=== PATIENT | female | born 1980 | race Caucasian/White ===

== ENCOUNTER 2024-09-07 13:44 | Emergency (ER) | payer OTHER, SELFPAY ==
--- NOTE | ~2024-09-07 | CT_ITS ---
EXAMINATION: CT abd pelvis lumbar w con DATE: 09/07/2024 20:24 INDICATION: fall down stairs, LBP/tailbone pain/lower abd pain TECHNIQUE: Computed tomography (CT) of the abdomen and pelvis was performed with 100 mL Omnipaque-350 intravenous contrast. Automated exposure control and iterative reconstruction technique were employe d. The dose-length product was 866.81 mGy-cm. COMPARISON: None. FINDINGS: Lower thorax: Unremarkable Liver: Normal. Biliary/Gallbladder: Gallbladder is normal. No bile duct dilation. Pancreas: No mass or duct dilation. Spleen: Normal. Adrenals:No mass. Kidneys: No suspicious mass, obstructing stone, or hydronephrosis. GI tract: No small or large bowel dilation. Normal appendix. Mesentery/Peritoneum: No ascites, mass, or free air. Retroperitoneum: No mass. Pelvis: Mild presacral edema. Pelvic organs are within normal limits. 2.0 cm simple appearing right o varian cyst. IUD, in good position. Soft Tissues: Subcutaneous contusion overlying the tailbone. Bones (excluding spine): Comminuted fracture of the first coccygeal element. LUMBAR SPINE: 5 nonrib-bearing lumbar-type vertebral bodies. Pedicles intact. Normal vertebral body alignment. Vert ebral body heights preserved. Disc spaces maintained. Normal facets and posterior elements. IMPRESSION: No acute intra-abdominal process detected. No acute fracture or traumatic malalignment detected in the lumbar spine. Comminuted, nondisplaced fracture of the first coccygeal element, with presacral edema. Reviewed, dictated and finalized at location K. ES AIDE IMPRESSION: No acute intra-abdominal process detected. No acute fracture or traumatic malalignment detected in the lumbar spine. Comminuted, nondisplaced fracture of the first coccygeal element, with presacra l edema.
[2024-09-07 13:54] VITALS: BP 130/80; PULSE 97; RESP 20; TEMP 36.4; O2SAT 97
--- NOTE | 2024-09-07 16:34 | ED_ITS ---
HPI - Back Pain/Injury General Chief Complaint: Back Pain/Injury <MARJORIE Rain Last Filed: 09/07/24 16:50> Stated Complaint: pain from fall <MARJORIE Rain Last Filed: 09/07/24 16:50> Time Seen by Provider: 09/07/24 16:34 <MARJORIE Rain Last Filed: 09/07/24 16:50> Focused HPI: This is a 44-year-old female who presents to the ED for chief complaint of a fall with subsequent back pain and abdominal pain. Reports that she has pain to the tailbone where she directly landed while slipping down the stairs. Also reports that she has had abdominal pain intermittently for the past year and feels that this fall flared up her chronic abdominal pain. denies fevers, chills, numbness, weakness GENERAL: Well-appearing, well-nourished, and in no acute distress. HEAD: Normocephalic, atraumatic. CHEST: Clear to auscultation. No respiratory distress. ABD: Soft and nontender. HEART: Regular rate and rhythm. NEURO: Alert and oriented x3. Patient screened in triage and initial orders placed. Additional care and disposition to be based upon diagnostic testing and treatment. <MARJORIE Rain Last Filed: 09/07/24 16:50> Source: patient <MARJORIE Centeno Last Filed: 09/08/24 01:53> Mode of arrival: ambulatory <MARJORIE Centeno Last Filed: 09/08/24 01:53> Limitations: no limitations <MARJORIE Centeno Last Filed: 09/08/24 01:53> History of Present Illness HPI Narrative: Agree with above HPI. Denies any head injury. Denies LOC. Denies dizziness or lightheadedness prior to the fall. Patient was able to stand up and walk up the stairs after the fall. Has not taken anything for pain. <MARJORIE Centeno Last Filed: 09/08/24 01:53> Related Data Allergies/Adverse Reactions: Allergies Allergy/AdvReac Type Severity Reaction Status Date / Time Sulfa (Sulfonamide Allergy Hives Verified 09/07/24 19:50 Antibiotics) <MARJORIE Rain Last Filed: 09/07/24 16:50> Review of Systems 2 Review of Systems: All systems reviewed & are unremarkable except as noted in HPI. <MARJORIE Centeno Last Filed: 09/08/24 01:53> All systems reviewed & are unremarkable except as noted in HPI and below < Tanisha Johnson PA-C - Last Filed: 09/08/24 01:53> Exam 2 Narrative: GENERAL: Mildly uncomfortable appearing, well-nourished, non-toxic, in no acute distress. HEAD: Normocephalic, atraumatic. RESPIRATORY: Airway patent, respirations nonlabored. Clear to auscultation bilaterally, no rales, rhonchi, wheezing. CARDIOVASCULAR: Regular rate and rhythm without murmurs, rubs, or gallops. ABDOMINAL: Soft, nontender, nondistended. Normoactive BS. MUSCULOSKELETAL: Moves all extremities. No gross deformities. Diffuse tenderness throughout lumbosacral region with some swelling and ecchymosis present. No palpable bony deformities along spine. No appreciable step offs. Sensation intact. No tenderness throughout thoracic or cervical midline spine. SKIN: Warm, dry, normal color. NEURO: A&O X3. Speech clear. Cranial nerves II-XII grossly intact. No ataxic movements. PSYCHIATRIC: Appropriate mood and affect. Normal interaction. <Tanisha Johnson PA-C - Last Filed: 09/08/24 01:53> Course Vital Signs Vital signs: Vital Signs Temperature 97.5 F L 09/07/24 13:54 Pulse Rate 97 09/07/24 13:54 Respiratory Rate 20 09/07/24 13:54 Blood Pressure 130/80 09/07/24 13:54 Pulse Oximetry 97 09/07/24 13:54 Temperature 98.6 F 09/07/24 16:40 Pulse Rate 79 09/07/24 16:40 Respiratory Rate 18 09/07/24 16:40 Blood Pressure 107/65 09/07/24 16:40 Pulse Oximetry 97 09/07/24 16:40 <Sedrick Huitron PA-C - Last Filed: 09/07/24 16:50> Vital Signs Temperature 97.5 F L 09/07/24 13:54 Pulse Rate 97 09/07/24 13:54 Respiratory Rate 20 09/07/24 13:54 Blood Pressure 130/80 09/07/24 13:54 Pulse Oximetry 97 09/07/24 13:54 Temperature 98.6 F 09/07/24 16:40 Pulse Rate 79 09/07/24 16:40 Respiratory Rate 18 09/07/24 16:40 Blood Pressure 107/65 09/07/24 16:40 Pulse Oximetry 97 09/07/24 16:40 <MARJORIE Centeno Last Filed: 09/08/24 01:53> MDM - Back Pain/Injury MDM Narrative Medical decision making narrative: Patient presented to ED status post fall downstairs. Denies head injury or LOC. Complaining of pain to her lower back/tailbone region. Neurovascularly intact. No evidence of cord compression or cauda equina. Vital signs are stable. Patient sleeping in laying on her stomach upon my evaluation. Difficulty moving about the stretcher due to pain. Will obtain imaging to further evaluate. Laboratory studies are unremarkable. test negative. CT scan of abdomen/pelvis with lumbar spine was obtained and showing: C omminuted, nondisplaced fracture of the first coccygeal element, with presacral edema. This is consistent with exam and injury. There is no other lumbar spine fractures or lumbar spine abnormalities. No severe stenosis. No other intra- abdominal injuries. Patient was updated on imaging results. She is able to ambulate. Advised weight-bearing as tolerated. Offered crutches however patient politely declined. Will refer to orthopedics for further evaluation. Will prescribe pain medicine for home use. Patient feels comfortable going home. Discussed strict return precautions. She agrees with plan. Discharged in stable condition. <Tanisha Johnson PA-C - Last Filed: 09/08/24 01:53> Medical Records Attestation: I reviewed the patient's medical records. <Tanisha Johnson PA-C - Last Filed: 09/08/24 01:53> Lab Data Attestation: I reviewed the patient's lab results. <Tanisha Johnson PA-C - Last Filed: 09/08/24 01:53> Result diagrams: 09/07/24 17:11 09/07/24 17:11 <Sedrick Huitron PA-C - Last Filed: 09/07/24 16:50> Labs: Lab Results 09/07/24 09/07/24 Range/Units 17:11 17:20 WBC 11.8 H (4.5-10.0) K/mm3 RBC 4.62 (4.2-5.4) M/mm3 Hgb 14.7 (12.0-15.0) g/dL Hct 42.3 (37.0-47.0) % MCV 91.6 (80-100) fl MCH 31.8 (26-34) pg MCHC 34.8 (32-36) g/dl RDW 12.7 (11.5-14.5) % Plt Count 318 (150-375) k/mm3 MPV 10.4 (7.4-10.4) fl Immature Gran % (Auto) 0.2 (0-0.5) % Neut % (Auto) 53.0 (45.5-73.1) % Lymph % (Auto) 32.9 (18.3-44.2) % Newton % (Auto) 9.3 H (2.6-8.5) % Eos % (Auto) 3.8 (0-4.4) % Baso % (Auto) 0.8 (0.2-1.2) % Lymph # (Auto) 3.90 H (0.9-3.2) K/mm3 Newton # (Auto) 1.1 H (0.1-0.6) K/mm3 Eos # (Auto) 0.5 H (0-0.3) K/mm3 Baso # (Auto) 0.1 (0.0-0.1) K/mm3 Abs Immat Gran (auto) 0.02 (0.00-0.031) K/mm3 Absolute Neuts (auto) 6.3 (1.3-6.7) K/mm3 Absolute Nucleated RBC 0.000 (0.0-0.012) K/mm3 Nucleated RBC % 0.0 (0.0-0.2) % Sodium 138 (137-145) mmol/L Potassium 3.4 (3.4-5.0) mmol/L Chloride 108 H (98-107) mmol/L Carbon Dioxide 24 (22-30) mmol/L Anion Gap 6 (4-12) mmol/L BUN 11 (7-17) mg/dL Creatinine 0.90 (0.7-1.0) mg/dL Estim Creat Clear Calc 80 ml/min Estimated GFR > 60 (59 - ) Glucose 98 (65-110) mg/dL Calcium 8.9 (8.4-10.2) mg/dL Total Bilirubin 0.4 (0.2-1.3) mg/dL AST 49 H (14-36) U/L ALT 57 H (6-35) U/L Alkaline Phosphatase 62 (38-126) U/L Total Protein 7.0 (6.3-8.2) g/dL Albumin 4.4 (3.5-5.1) g/dL Lipase 51 (23-300) U/L Urine Color Yellow (Yellow) Urine Appearance Clear (Clear) Urine pH 7.5 (5.0-9.0) Ur Specific Cisco 1.013 (1.001-1.035) Urine Protein Negative (Negative) mg/dL Urine Glucose (UA) Negative (Negative) mg/dL Urine Ketones Negative (Negative) mg/dL Ur Blood (Man) Negative (Negative) Urine Nitrate Negative (Negative) Urine Bilirubin Negative (Negative) Urine Urobilinogen 0.2 (<2.0) mg/dL Leukocyte Esterase Rfl Negative (Negative) LEONCIO/UL POC Urine HCG, Qual Negative (Negative) <Sedrick Huitron PA-C - Last Filed: 09/07/24 16:50> Lab Results 09/07/24 09/07/24 Range/Units 17:11 17:20 WBC 11.8 H (4.5-10.0) K/mm3 RBC 4.62 (4.2-5.4) M/mm3 Hgb 14.7 (12.0-15.0) g/dL Hct 42.3 (37.0-47.0) % MCV 91.6 (80-100) fl MCH 31.8 (26-34) pg MCHC 34.8 (32-36) g/dl RDW 12.7 (11.5-14.5) % Plt Count 318 (150-375) k/mm3 MPV 10.4 (7.4-10.4) fl Immature Gran % (Auto) 0.2 (0-0.5) % Neut % (Auto) 53.0 (45.5-73.1) % Lymph % (Auto) 32.9 (18.3-44.2) % Newton % (Auto) 9.3 H (2.6-8.5) % Eos % (Auto) 3.8 (0-4.4) % Baso % (Auto) 0.8 (0.2-1.2) % Lymph # (Auto) 3.90 H (0.9-3.2) K/mm3 Newton # (Auto) 1.1 H (0.1-0.6) K/mm3 Eos # (Auto) 0.5 H (0-0.3) K/mm3 Baso # (Auto) 0.1 (0.0-0.1) K/mm3 Abs Immat Gran (auto) 0.02 (0.00-0.031) K/mm3 Absolute Neuts (auto) 6.3 (1.3-6.7) K/mm3 Absolute Nucleated RBC 0.000 (0.0-0.012) K/mm3 Nucleated RBC % 0.0 (0.0-0.2) % Sodium 138 (137-145) mmol/L Potassium 3.4 (3.4-5.0) mmol/L Chloride 108 H (98-107) mmol/L Carbon Dioxide 24 (22-30) mmol/L Anion Gap 6 (4-12) mmol/L BUN 11 (7-17) mg/dL Creatinine 0.90 (0.7-1.0) mg/dL Estim Creat Clear Calc 80 ml/min Estimated GFR > 60 (59 - ) Glucose 98 (65-110) mg/dL Calcium 8.9 (8.4-10.2) mg/dL Total Bilirubin 0.4 (0.2-1.3) mg/dL AST 49 H (14-36) U/L ALT 57 H (6-35) U/L Alkaline Phosphatase 62 (38-126) U/L Total Protein 7.0 (6.3-8.2) g/dL Albumin 4.4 (3.5-5.1) g/dL Lipase 51 (23-300) U/L Urine Color Yellow (Yellow) Urine Appearance Clear (Clear) Urine pH 7.5 (5.0-9.0) Ur Specific Cisco 1.013 (1.001-1.035) Urine Protein Negative (Negative) mg/dL Urine Glucose (UA) Negative (Negative) mg/dL Urine Ketones Negative (Negative) mg/dL Ur Blood (Man) Negative (Negative) Urine Nitrate Negative (Negative) Urine Bilirubin Negative (Negative) Urine Urobilinogen 0.2 (<2.0) mg/dL Leukocyte Esterase Rfl Negative (Negative) LEONCIO/UL POC Urine HCG, Qual Negative (Negative) <MARJORIE Centeno Last Filed: 09/08/24 01:53> Imaging Data Attestation: I personally reviewed and interpreted this imaging study as follows: < MARJORIE Centeno Last Filed: 09/08/24 01:53> Radiologist's impression: ITS Impressions Miscellaneous CT Procedure 09/07/24 20:27 IMPRESSION: No acute intra-abdominal process detected. No acute fracture or traumatic malalignment detected in the lumbar spine. Comminuted, nondisplaced fracture of the first coccygeal element, with presacral edema. <MARJORIE Centeno Last Filed: 09/08/24 01:53> Discharge Plan Discharge Clinical Impression: Closed fracture of coccyx, Fall down stairs <MARJORIE Rain Last Filed: 09/07/24 16:50> Patient Disposition: Home, Self-Care <MARJORIE Rain Last Filed: 09/07/24 16:50> Condition: Stable <MARJORIE Rain Last Filed: 09/07/24 16:50> Instructions: Antibiotic Form, Coccyx Injury (ED), Acute Low Back Pain (ED) <MARJORIE Rani Last Filed: 09/07/24 16:50> Additional Instructions: Continue Tylenol and Ibuprofen as needed for pain. You may use ice/heat, lidocaine patches to area of pain. Utilize Primghar as needed for more severe pain. Follow-up with your primary care doctor and Orthopedics for further evaluation. Return to the ED if you experience worsening or severe pain, recurrent injury, numbness in groin or legs, going to the bathroom without meaning to, unable to keep down food or drink, or any other symptoms of concern. <Sedrick Huitron PA-C - Last Filed: 09/07/24 16:50> Prescriptions: New hydrocodone-acetaminophen 5-325 mg tablet 1 tablet PO Q6H PRN (Reason: pain) Qty: 15 0RF lidocaine 5 % adhesive patch,medicated 1 patch topical DAILY Qty: 15 0RF Rx Instructions: leave on most painful area for up to 12 hrs <Sedrick Huitron PA-C - Last Filed: 09/07/24 16:50> Follow-up/Referrals: Ted,Sedrick Payton MD [Primary Care Provider] - Jerry Enrique MD [Physician] - (ORTHOPEDICS) <Sedrick Huitron PA-C - Last Filed: 09/07/24 16:50> Time of Disposition: 21:24 <Sedrick Huitron PA-C - Last Filed: 09/07/24 16:50> 21:24 <Tanisha Johnson PA-C - Last Filed: 09/08/24 01:53>
[2024-09-07 16:40] VITALS: BP 107/65; PULSE 79; RESP 18; TEMP 37; O2SAT 97
[2024-09-07 17:17] LABS: Basophils Absolute Auto 0.1 K/mm3 (0.0-0.1); Basophils Percent Auto 0.8 % (0.2-1.2); Eosinophils Absolute Auto 0.5 K/mm3 (0-0.3); Eosinophils Percent Auto 3.8 % (0-4.4); Hematocrit 42.3 % (37.0-47.0); Hemoglobin 14.7 g/dL (12.0-15.0); Immature Granulocyte Absolute 0.02 K/mm3 (0.00-0.031); Immature Granulocyte Percent A 0.2 % (0-0.5); Lymphocytes Percent Auto 32.9 % (18.3-44.2); Mean Corpuscular HGB Conc 34.8 g/dl (32-36); Mean Corpuscular Hemoglobin 31.8 pg (26-34); Mean Corpuscular Volume 91.6 fl (80-100); Mean Platelet Volume 10.4 fl (7.4-10.4); Monocytes Absolute Auto 1.1 K/mm3 (0.1-0.6); Monocytes Percent Auto 9.3 % (2.6-8.5); Neutrophils Absolute Auto 6.3 K/mm3 (1.3-6.7); Platelet Count Result 318 k/mm3 (150-375); Red Blood Count 4.62 M/mm3 (4.2-5.4); Red Cell Distribution Width 12.7 % (11.5-14.5); White Blood Count 11.8 K/mm3 (4.5-10.0)
[2024-09-07 17:18] LABS: Add Urine Microscopic? NO; Appearance Urine Clear (Clear); Bilirubin Urine Negative (Negative); Blood Urine Negative (Negative); Color Urine Yellow (Yellow); Glucose Urine UA Negative (Negative); Ketones Urine Negative (Negative); Leukocyte Esterase Ur Negative LEU/UL (Negative); Nitrate Urine Negative (Negative); Protein Urine Negative (Negative); Specific Grav Ur 1.013 (1.001-1.035); Urobilinogen Urine 0.2 mg/dL (<2.0); pH Urine 7.5 (5.0-9.0)
[2024-09-07 17:22] LABS: BEDSIDEPREGUCG Negative (Negative)
[2024-09-07 17:26] LABS: Alanine Aminotransferase 57 U/L (6-35); Albumin Level 4.4 g/dL (3.5-5.1); Alkaline Phosphatase 62 U/L (38-126); Anion Gap 6 mmol/L (4-12); Aspartate Amino Transferase 49 U/L (14-36); Bilirubin,Total 0.4 mg/dL (0.2-1.3); Blood Urea Nitrogen 11 mg/dL (7-17); Calcium 8.9 mg/dL (8.4-10.2); Carbon Dioxide 24 mmol/L (22-30); Chloride 108 mmol/L (98-107); Estimated CRCL calculation 80 ml/min; Estimated Glomerular Filt Rate > 60; Glucose 98 mg/dL (65-110); Lipase 51 U/L (23-300); Potassium 3.4 mmol/L (3.4-5.0); Sodium 138 mmol/L (137-145)
[2024-09-07] MEDS: MORPHINE SULFATE (*CRX) 4 MG/ML INJ IV PUSH (19:54)
[2024-09-07] MEDS: ONDANSETRON INJ 4 MG/2 ML VIAL IV PUSH (19:55)
[2024-09-07] MEDS: ACETAMINOPHEN 500 MG TABLET 1000 MG PO (19:55)
[2024-09-07] MEDS: HYDROcodone/acetaminophen (*CRX) 5-325 MG TABLET 1 TAB PO (21:34)
[2024-09-07] MEDS: KETOROLAC 30 MG/ML VIAL (*BKC) IV PUSH (21:34)
== END 2024-09-07 21:41 | disposition home or self-care (01) ==
PROVIDERS: Physician Assistant; Emergency Provider Physician Assistant; PCP Emergency Medicine
DX: S32.2XXA Fracture of coccyx, initial encounter for closed fracture (principal); W10.9XXA Fall (on) (from) unspecified stairs and steps, initial encounter
CPT/HCPCS: 36415; 72132; 74177; 80053; 81003; 81025; 83690; 85025; 96374; 96375; 99284; A9270; J1885; J2270; J2405; Q9967

== ENCOUNTER 2024-11-11 22:55 | Emergency (ER) | payer OTHER, SELFPAY ==
--- NOTE | ~2024-11-11 | CT_ITS ---
CLINICAL INDICATION: Abdominal pain COMPARISON: . TECHNIQUE: Multiple contiguous axial images of the abdomen and pelvis were performed following the ad ministration of with 100 mL Omnipaque-350 intravenous contrast The dose-length product (DLP) was 758.70 mGy-cm. Automated exposure control and iterative reconstruction technique were employed. FINDINGS/OBSERVATIONS: Visualized lower thorax: The bilateral lung bases are clear. The heart is of normal size, without pericardial effusion. Small hiatal hernia is present. Liver: The liver enhances homogeneously, and is not enlarged. Gallbladder and biliary system: The gallbladder is only minimally distended, and otherwise unremarkable. Pancreas: The pancreas enhances homogeneously without ductal dilatation. Spleen: The spleen enhances homogeneously and is not enlarged measuring 9 cm in longitudinal dimension. Kidneys: The bilateral kidneys enhance symmetrically without hydronephrosis or renal calculi. Adrenal glands: Unremarkable. Gastrointestinal tract: Fecal stasis within the colon Appendix: The air-filled appendix is of normal caliber (axial series, images 155 through 164). Vasculature: Unremarkable. Lymph nodes: No pathologically enlarged or morphologically suspicious lymph nodes within the retroperitoneum or at the root of the mesentery. Pelvic structures: The bladder is decompressed, and otherwise unremarkable. The uterus is retroverted and retroflexed. Intrauterine device in position. The bilateral ovaries are not visualized. Body wall and musculoskeletal: No significant degenerative disease within the lower thoracic or lumbosacral spine. IMPRESSION: Fecal stasis within the colon. No acute intra-abdominal pathology, as detailed above. Reviewed, dictated and finalized at location A. [facility]
--- OUTSIDE RECORDS SUMMARY | 2024-11-11 22:58 | XMS_ITS | Referral Summary ---
Author Organization [facility] Address [address] [place] [address] Care Team Providers Care Split Leather Mosser Name Role Phone Unavailable Primary Care Provider Unavailabl e Source Comments [facility],non-owned Affiliates and Associated Physician Practices is amultiple site organization consisting of ambulatory clinics and hospital sitesin [place], [place], [place] and [place]. This disclosure is being madepursuant to the Care Everywhere program and may not contain all information available regarding this patient. Last updated 18.[facility] Encounters Date Type Department Care Team Description 11/10/2024 3:00 PM BOX COVERER HAND Office Visit [facility] Orthopedics [address] [place] [address] Isac Feliciano MD from Last 3 Months Allergies Active Allergy Reactions Criticality Noted Date Comments Sulfa Drugs Urticaria,Itching,Rash High 04/30/2022 Medications * Be aware that medications may not be up to date on this document. Alwaysverify current medications with the patient. Medication Sig Dispensed Refills Start Date End Date Status atorvastatin (Lipitor) 20 MG tablet Take 1 (one) tablet by mouth once daily Active buPROPion XL 24hr (Wellbutrin-XL) 150 MG tablet Take 1 (one) tablet by mouth every morning 09/28/2024 Active amoxicillin-clavulan ate (Augmentin) 875-125 MG tablet 10/30/2024 Active diclofenac sodium EC (Voltaren) 50 MG tablet Take 1 (one) tablet by mouth 10/29/2024 Active fluticasone propionate (Flonase) 50 MCG/ACT nasal spray 08/26/2024 Active gabapentin (Neurontin) 400 MG capsule Take 1 (one) capsule by mouth 3 times daily 10/09/2024 Active levothyroxine (Synthroid) 50 MCG tablet Take 1 (one) tablet by mouth once daily 09/28/2024 Active lithium CR (Lithobid) 300 MG tablet Take 1 (one) tablet by mouth 2 times daily 10/13/2024 Active lurasidone (Latuda) 40 MG tablet 1 (one) tablet 10/13/2024 Active nystatin (Mycostatin) 277722 UNIT/ML suspension 08/19/2024 Active oxyBUTYnin (Ditropan) 5 MG tablet Take 1 (one) tablet by mouth 3 times daily Active pilocarpine HCl (Salagen) 5 MG tablet Take 1 (one) tablet by mouth 07/29/2024 Active prazosin (Minipress) 1 MG capsule TAKE 1 CAPSULE BY MOUTH DAILY AT BEDTIME NEEDED FOR NIGHTMARES 09/18/2024 Active propranolol ER 24hr (Inderal LA) 60 MG capsule Take 1 (one) capsule by mouth once daily Active topiramate (Topamax) 100 MG tablet Take 1 (one) tablet by mouth at bedtime 09/28/2024 Active venlafaxine XR 24hr (Effexor XR) 150 MG capsule 1 (one) capsule 09/28/2024 Active Social History Tobacco Use Types Packs/Day Years Used Date Smoking Tobacco: Never Smokeless Tobacco: Never Tobacco Cessation:Counseling Given: No Alcohol Use Standard Drinks/Week Comments Not Currently 0 (1 standard drink = 0.6 oz pur e alcohol) Sex and Gender Information Value Date Recorded Sex Assigned at Not on file Gender Identity Not on file Sexual Orientation Not on file Last Filed Vital Signs Vital Sign Reading Time Taken Comments Blood Pressure 118/79 11/10/2024 3:29 PM BOX COVERER HAND Pulse 84 11/10/2024 3:29 PM BOX COVERER HAND Temperature 36.9 C (98.5 F) 11/10/2024 3:29 PM BOX COVERER HAND Respiratory Rate 18 11/10/2024 3:29 PM BOX COVERER HAND Oxygen Saturation 100% 11/10/2024 3:29 PM BOX COVERER HAND Inhaled Oxygen Concentration - - Weight 81.6 kg (180 lb) 11/10/2024 3:29 PM BOX COVERER HAND Height 170.2 cm (5' 7 ) 11/10/2024 3:29 PM BOX COVERER HAND Body Mass Index 28.19 11/10/2024 3:29 PM BOX COVERER HAND Plan of Treatment Upcoming Encounters Date Type Department Care Team (Late st Contact Info) Description 12/25/2024 9:30 AM CDT Office Visit [facility]oped[facility] [address] [place] [address] Genoveva Ward, RAG BALER-SUPERVISOR [employer] [address] [place] [address]
--- OUTSIDE RECORDS SUMMARY | 2024-11-11 22:58 | XMS_ITS | Clinical Summary ---
Author Organization [facility] Address [address] [place] [address] Care Team Providers Care Insole Stiffener Name Role Phone Unavailable Primary Care Provider Unavailabl e Source Comments [facility],non-owned Affiliates and Associated Physician Practices is amultiple site organization consisting of ambulatory clinics and hospital sitesin [place], [place], [place] and [place]. This disclosure is being madepursuant to the Care Everywhere program and may not contain all information available regarding this patient. Last updated 18.[facility] Allergies Active Allergy Reactions Criticality Noted Date [...] 1 (one) tablet 10/13/2024 Active nystatin (Mycostatin) 730952 UNIT/ML suspension 08/19/2024 Active oxyBUTYnin (Ditropan) 5 [...] MG capsule 1 (one) capsule 09/28/2024 Active Encounters Date Type Department Care Team Description 11/10/2024 3:00 PM SOLVENT PROCESS EXTRACTOR OPERATOR Office Visit [facility] Orthoped[facility] [address] [place] [address] Isac Feliciano MD from Last 3 Months Social History Tobacco Use Types Packs/Day Years [...] Comments Blood Pressure 118/79 11/10/2024 3:29 PM SOLVENT PROCESS EXTRACTOR OPERATOR Pulse 84 11/10/2024 3:29 PM SOLVENT PROCESS EXTRACTOR OPERATOR Temperature 36.9 C (98.5 F) 11/10/2024 3:29 PM SOLVENT PROCESS EXTRACTOR OPERATOR Respiratory Rate 18 11/10/2024 3:29 PM SOLVENT PROCESS EXTRACTOR OPERATOR Oxygen Saturation 100% 11/10/2024 3:29 PM SOLVENT PROCESS EXTRACTOR OPERATOR Inhaled Oxygen Concentration - - Weight 81.6 kg (180 lb) 11/10/2024 3:29 PM SOLVENT PROCESS EXTRACTOR OPERATOR Height 170.2 cm (5' 7 ) 11/10/2024 3:29 PM SOLVENT PROCESS EXTRACTOR OPERATOR Body Mass Index 28.19 11/10/2024 3:29 PM SOLVENT PROCESS EXTRACTOR OPERATOR Plan of Treatment Upcoming Encounters Date Type Department Care Team (Late st Contact Info) Description 12/25/2024 9:30 AM CDT Office Visit [facility] [address] [place] [phone] Genoveva Ward, AIRCRAFT NAVIGATOR-SALESPERSON [employer] [address] [place] [address] Health Maintenance Due Date Last Done Comments MAMMOGRAM 1981 PAP SMEAR 1981 HIV SCREENING 1996 HEPATITIS C SCREENING 05/04/1999 DTAP/TDAP/TD VACCINES (1 - Tdap) 2000 HEPATITIS B VACCINE (1 of 3 - 19+ 3-dose series) 2000 COVID-19 VACCINE ( - 2023-2 5 season) 2024 INFLUENZA VACCINE (#1) 2024 DEPRESSION SCREENING 09/30/2024 SCREENING FOR DIABETES 11/10/2024 ZOSTER VACCINE (1 of 2) 2031 HIB VACCINE Aged Out No longer eligi ble based on patient's age to complete this topic HPV VACCINE Aged Out No longer eligi ble based on patient's age to complete this topic MENINGOCOCCAL (Group B) VACCINE Aged Out No longer eligible based on patient's age to complete this topic MENINGOCOCCAL VACCINE Aged Out No guillermina brittney eligible based on patient's age to complete this topic PNEUMOCOCCAL VACCINE Aged Out No long er eligible based on patient's age to complete this topic
--- OUTSIDE RECORDS SUMMARY | 2024-11-11 22:58 | XMS_ITS | Patient Health Record ---
Author Organization [facility] Address [address] [place] [address] Care Team Providers Care Lab Animal Technician Name Role Phone Jed Roy Primary Care Provider Michael Brown [phone] Allergies Allergen (clinical drug ingredient) Drug/Non Drug Allergy documented on EMR Reaction Allergy Type Onset Date Status Sulfacet-R Unknown Drug Allergy Active Results Component Value Reference Range Notes 12 Panel Urine Drug Screen Reviewed date:09/17/2024 05:09:31 PM Interpretation: Performing Lab: Notes/Report: THC POS ZAINAB neg MOP (OPI) neg AMP POS MET neg BAR neg BZO neg MDMA neg MTD neg OXY neg PCP neg BUP neg Reason For Referral No Information Medications Medication SIG (Take, Route, Frequency, Duration) Notes Start Date End Date Status Lurasidone HCl 20 MG 1 tablet in the evening with food Orally Once a day for 30 day(s) Lurasidone restarting 09/18/2024 Active Lurasidone HCl 40 MG 1 tablet in the evening with food Orally Once a day for 30 days Increasing from 20 mg to 40 mg. Thanks!! 10/13/2024 Active [place] Carbonate ER 300 MG 1 tablet at bedtime Orally Once a day for 30 days 10/13/2024 Active Pilocarpine HCl 5 MG 1 tablet Orally Three times a day for 30 days Lurasidone restarting 07/29/2024 Active Prazosin HCl 1 MG 1 capsule at bedtime Orally Once a day As needed for nightmares Lurasidone restarting 11/14/2023 Active Gabapentin 400 MG 1 capsule as needed for anxiety Orally Three times a day Lurasidone restarting Active Venlafaxine HCl ER 150 MG TAKE 1 CAPSULE BY MOUTH WITH FOOD DAILY for 30 Active buPROPion HCl ER (XL) 150 MG TAKE 1 TABLET BY MOUTH EVERY MORNING for 30 Active Thyroid 15 MG 1 tablet on an empty stomach Orally Once a day for 30 day(s) Active Atorvastatin Calcium 10 MG 1 tablet Orally Once a day for 30 day(s) 06/07/2021 Active Zovirax 5 % 1 application every 3 hours Externally Six times a day for 7 days 05/19/2021 Active oxyBUTYnin Chloride 5 MG 1 tablet Orally Twice a day Active Social History Tobacco Use: Social History Observation Description Date Details (start date - stop date) Current Smoker NA - NA Sex Assigned At : Social History Observation Description Sex Assigned At Female Dont use, Tobacco Use/Smoking Question Answer Notes Are you a current every day smoker Additional Findings: Tobacco User Heavy cigarett e smoker (20-39 cigs/day) Alcohol Screen (Audit-C) Question Answer Notes Did you have a drink containing alcohol in the p ast year? Yes Tobacco Control (Standard) Question Answer Notes Tobacco use: Current smoker Problems Problem Type SNOMED Code ICD Code Onset Dates Problem Status W/U Status Risk Notes Problem 89281213 Opioid dependence, uncomplicated (F11.20) Active confirmed Problem Tobacco user (878832242) Nicotine dependence, unspecified, uncomplicated (F17.200) Active confirmed Problem 75439626 Generalized anxiety disorder (F41.1) Active confirmed Problem Attention deficit hyperactivity disorder (182989562) ADHD (attention deficit hyperactivity disorder), combined type (F90.2) Active confirmed Problem 748462448 Bipolar 1 disorder (F31.9) Active confirmed Problem Opioid dependence in remission (805679414) Opioid dependence in remission (F11.21) Active confirmed Problem Nightmares (592766327) Nightmares (F51.5) Active confirmed Problem Nicotine dependence (36349847) Nicotine dependence (F17.200) Active confirmed Problem Binge eating disorder (631120436) Binge eating disorder (F50.81) Active confirmed Vital Signs Heart Rate 88 /min 09/17/2024 Temperature 98.1 degrees Fahrenheit 11/14/2023 Respiratory Rate 16 /min 09/17/2024 Blood pressure diastolic 68 mm Hg 09/17/2024 Oximetry 97 % 09/17/2024 Height 67 in 09/17/2024 Blood pressure systolic 108 mm Hg 09/17/2024 Weight 189.2 lbs 09/17/2024 BMI 29.63 kg/m2 09/17/2024 Encounters Encounter Location Date Provider Diagnosis [address] [address] 11/14/2023 Michael Brown Nicotine dependence, unspecified, uncomplicated F17.200 ; Bipolar 1 disorder F31.9 ; Generalized anxiety disorder F41.1 ; ADHD (attention deficit hyperactivity disorder), combined type F90.2 and Nightmares F51.[address] [address] 02/04/2024 Michael Brown ADHD (attention deficit hyperactivity disorder), combined type F90.2 ; Binge eating disorder F50.81 ; Generalized anxiety disorder F41.1 ; Bipolar 1 disorder F31.9 and Nightmares F51.[address] [address] 05/04/2024 Micheal Brown Bipolar 1 disorder F31.9 ; ADHD (attention deficit hyperactivity disorder), combined type F90.2 ; Generalized anxiety disorder F41.1 ; Binge eating disorder F50.81 and Nightmares F51.[address] [address] 07/29/2024 Michael Brown Generalized anxiety disorder F41.1 ; ADHD (attention deficit hyperactivity disorder), combined type F90.2 ; Nightmares F51.5 ; Binge eating disorder, moderate F50.811 and Medication side effects T88.7XXA [address] [address] 08/10/2024 Michael Brown Generalized anxiety disorder F41.1 ; ADHD (attention deficit hyperactivity disorder), combined type F90.2 ; Nightmares F51.5 ; Binge eating disorder, moderate F50.811 and Medication side effects T88.7XXA [address] [address] 09/17/2024 Michael Brown Generalized anxiety disorder F41.1 ; Bipolar 1 disorder F31.9 ; ADHD (attention deficit hyperactivity disorder), combined type F90.2 ; Binge eating disorder, moderate F50.811 ; Nightmares F51.5 and Medication side effects T88.7XXA [address] [address] 10/13/2024 Michael Brown Bipolar 1 disorder F31.9 ; Generalized anxiety disorder F41.1 ; ADHD (attention deficit hyperactivity disorder), combined type F90.2 ; Nightmares F51.5 and Binge eating disorder F50.[address] [address] 12/02/2023 Michael Brown [address] [address] 02/12/2024 Michael Brown [address] [address] 02/18/2024 Michael Brown ADHD (attention deficit hyperactivity disorder), combined type F90.2 Assessments Encounter Date Diagnosis (ICD Code) Assessment Notes Treatment Notes Treatment Clinical Notes Section Notes 09/17/2024 Generalized anxiety disorder (ICD-10 - F41.1) Client had requested to discontinue mood stabilizers at prior appt believing she was not bipolar due to dx being made when she was in throes of opioid addiction. She has not done well since discontinuation of Latuda with labile mood swings, increased depression. Client currently presents hypomanic to manic with pressured speech, irritability, circumstantial speech patterns, disrupted relationships. Discussed with client that given this, her depression is not MDD like she was hopeful for, but rather more aligned with a bipolarity. She breaks down crying stating, I don't want to be bipolar! Education provided and client calms. She is agreeable to restarting Latuda at 20 mg. If side effects, can consider Lamictal, Vraylar, Caplyta as other alternatives. Client has never trialed these. 09/17/2024 Bipolar 1 disorder (ICD-10 - F31.9) Client had requested to discontinue mood stabilizers at prior appt believing she was not bipolar due to dx being made when she was in throes of opioid addiction. She has not done well since discontinuation of Latuda with labile mood swings, increased depression. Client currently presents hypomanic to manic with pressured speech, irritability, circumstantial speech patterns, disrupted relationships. Discussed with client that given this, her depression is not MDD like she was hopeful for, but rather more aligned with a bipolarity. She breaks down crying stating, I don't want to be bipolar! Education provided and client calms. She is agreeable to restarting Latuda at 20 mg. If side effects, can consider Lamictal, Vraylar, Caplyta as other alternatives. Client has never trialed these. 10/13/2024 Bipolar 1 disorder (ICD-10 - F31.9) Client with continued symptoms that appear to be hypomania to triston in origin unless etiologic medical issue is presenting that medical community has been unable to distinigish at this present time. 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 Discussed increasing to 40 mg and adding Lithum 300 mg ER at bedtime and discontinuing Vyvanse. She is agreeable as she is trying to avoid a crisis stay due to starting a new job. This provider discussed that continue to believe bipolar 1 is correct diagnosis despite co-occuring substance use history and that this needs to be properly managed. Client is agreeable to trial of these medications. 08/10/2024 Generalized anxiety disorder (ICD-10 - F41.1) Concerning that despite recent addition of pilocarpine client has had no relief of xerostomia. She has cut ditropan (prescribed by another provider) in half dose and states this has not helped (directed by different provider). That it continues to be the same or worsen. Client has been on same medications with no issue for some time; xerostomia in last several months. Discussed with client suspect there could be underlying medical cause as usually if medication related pilocarpine is helpful. Will decrease bupropion to 150 mg XL to limit norepineprine burden (could be helpful) and as it is client's goal to wean off this medication anyhow. Doubtful though, that this will help much and did let client know this. Encouraged client to f/u with PCP and let them know pilocarpine currently ineffective. Recommended client seek further autoimmune w/u per PCP to r/o underlying disorder (ie Sjogren syndrome). Client verbalizes understanding. 08/10/2024 ADHD (attention deficit hyperactivity disorder), combined type (ICD-10 - F90.2) Concerning that despite recent addition of pilocarpine client has had no relief of xerostomia. She has cut ditropan (prescribed by another provider) in half dose and states this has not helped (directed by different provider). That it continues to be the same or worsen. Client has been on same medications with no issue for some time; xerostomia in last several months. Discussed with client suspect there could be underlying medical cause as usually if medication related pilocarpine is helpful. Will decrease bupropion to 150 mg XL to limit norepineprine burden (could be helpful) and as it is client's goal to wean off this medication anyhow. Doubtful though, that this will help much and did let client know this. Encouraged client to f/u with PCP and let them know pilocarpine currently ineffective. Recommended client seek further autoimmune w/u per PCP to r/o underlying disorder (ie Sjogren syndrome). Client verbalizes understanding. 07/29/2024 Generalized anxiety disorder (ICD-10 - F41.1) Client has take n herself off lurasidone a few months ago. She feels dx of bipolar one was a misdx and that she is MDD with ADHD and TANO. Client had substance use disorder when dx was made by prior provider. Discussed to continue to monitor mood. However, anxiety has been very very high since weaning off Latuda and did discuss with client that this could be part of the cause. States she had not thought of that. Will increase gabapentin and start pilocarpine for dry mouth. Will f/u with client in a few weeks to discuss other unresolved issues in further depth and check on status as ran out of time. Client had many, many things she wished to go over in 20 minutes. Client is agreeable to this. Vyvanse dose decreased to 40 mg as well to see if helpful for dry mouth also. 07/29/2024 ADHD (attention deficit hyperactivity disorder), combined type (ICD-10 - F90.2) Client has take n herself off lurasidone a few months ago. She feels dx of bipolar one was a misdx and that she is MDD with ADHD and TANO. Client had substance use disorder when dx was made by prior provider. Discussed to continue to monitor mood. However, anxiety has been very very high since weaning off Latuda and did discuss with client that this could be part of the cause. States she had not thought of that. Will increase gabapentin and start pilocarpine for dry mouth. Will f/u with client in a few weeks to discuss other unresolved issues in further depth and check on status as ran out of time. Client had many, many things she wished to go over in 20 minutes. Client is agreeable to this. Vyvanse dose decreased to 40 mg as well to see if helpful for dry mouth also. 05/04/2024 ADHD (attention deficit hyperactivity disorder), combined type (ICD-10 - F90.2) Client doing well overall, no changes to treatment plan currently. 05/04/2024 Bipolar 1 disorder (ICD-10 - F31.9) Client doing well overall, no changes to treatment plan currently. 02/18/2024 ADHD (attention deficit hyperactivity disorder), combined type (ICD-10 - F90.2) 02/04/2024 Binge eating disorder (ICD-10 - F50.81) All lab work WNL (corisol, hormones, CBC, CMP, thyroid) per client's report though client continues to gain weight. Feels she has been binging again since off Vyvanse, that methyphenidate has not been effective for her binge eating disorder. Has been eating to point of discomfort and guilt on daily basis and is rapidly gaining weight. Requests to be placed back on Vyvanse. Wants to also slowly taper down on Latuda, has self tapered down to 40 mg and been on this for last month with good results. Will write for 20 mg. See HPI for details about bipolar versus MDD history. 11/14/2023 Nicotine dependence, unspecified, uncomplicated (ICD-10 - F17.200) Client requests to be placed on another ADHD medication due to lack of being able to percure Vyvanse. Changed to methylphenidate. Naltrexone dcd due to client feeling no longer needed (no cravings anymore). Client having nightmares daily. Agreeable to trial of prazosin. No other changes needed. 02/04/2024 ADHD (attention deficit hyperactivity disorder), combined type (ICD-10 - F90.2) All lab work WN L (corisol, hormones, CBC, CMP, thyroid) per client's report though client continues to gain weight. Feels she has been binging again since off Vyvanse, that methyphenidate has not been effective for her binge eating disorder. Has been eating to point of discomfort and guilt on daily basis and is rapidly gaining weight. Requests to be placed back on Vyvanse. Wants to also slowly taper down on Latuda, has self tapered down to 40 mg and been on this for last month with good results. Will write for 20 mg. See HPI for details about bipolar versus MDD history. 11/14/2023 Bipolar 1 disorder (ICD-10 - F31.9) Client requests to be placed on another ADHD medication due to lack of being able to percure Vyvanse. Changed to methylphenidate. Naltrexone dcd due to client feeling no longer needed (no cravings anymore). Client having nightmares daily. Agreeable to trial of prazosin. No other changes needed. 11/14/2023 Generalized anxiety disorder (ICD-10 - F41.1) Client requests to be placed on another ADHD medication due to lack of being able to percure Vyvanse. Changed to methylphenidate. Naltrexone dcd due to client feeling no longer needed (no cravings anymore). Client having nightmares daily. Agreeable to trial of prazosin. No other changes needed. 02/04/2024 Generalized anxiety disorder (ICD-10 - F41.1) All lab work WN L (corisol, hormones, CBC, CMP, thyroid) per client's report though client continues to gain weight. Feels she has been binging again since off Vyvanse, that methyphenidate has not been effective for her binge eating disorder. Has been eating to point of discomfort and guilt on daily basis and is rapidly gaining weight. Requests to be placed back on Vyvanse. Wants to also slowly taper down on Latuda, has self tapered down to 40 mg and been on this for last month with good results. Will write for 20 mg. See HPI for details about bipolar versus MDD history. 05/04/2024 Generalized anxiety disorder (ICD-10 - F41.1) Client doing well overall, no changes to treatment plan currently. 07/29/2024 Nightmares (ICD-10 - F51.5) Client has take n herself off lurasidone a few months ago. She feels dx of bipolar one was a misdx and that she is MDD with ADHD and TANO. Client had substance use disorder when dx was made by prior provider. Discussed to continue to monitor mood. However, anxiety has been very very high since weaning off Latuda and did discuss with client that this could be part of the cause. States she had not thought of that. Will increase gabapentin and start pilocarpine for dry mouth. Will f/u with client in a few weeks to discuss other unresolved issues in further depth and check on status as ran out of time. Client had many, many things she wished to go over in 20 minutes. Client is agreeable to this. Vyvanse dose decreased to 40 mg as well to see if helpful for dry mouth also. 08/10/2024 Nightmares (ICD-10 - F51.5) Concerning that despite recent addition of pilocarpine client has had no relief of xerostomia. She has cut ditropan (prescribed by another provider) in half dose and states this has not helped (directed by different provider). That it continues to be the same or worsen. Client has been on same medications with no issue for some time; xerostomia in last several months. Discussed with client suspect there could be underlying medical cause as usually if medication related pilocarpine is helpful. Will decrease bupropion to 150 mg XL to limit norepineprine burden (could be helpful) and as it is client's goal to wean off this medication anyhow. Doubtful though, that this will help much and did let client know this. Encouraged client to f/u with PCP and let them know pilocarpine currently ineffective. Recommended client seek further autoimmune w/u per PCP to r/o underlying disorder (ie Sjogren syndrome). Client verbalizes understanding. 10/13/2024 Generalized anxiety disorder (ICD-10 - F41.1) Client with continued symptoms that appear to be hypomania to triston in origin unless etiologic medical issue is presenting that medical community has been unable to distinigish at this present time. 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 Discussed increasing to 40 mg and adding Lithum 300 mg ER at bedtime and discontinuing Vyvanse. She is agreeable as she is trying to avoid a crisis stay due to starting a new job. This provider discussed that continue to believe bipolar 1 is correct diagnosis despite co-occuring substance use history and that this needs to be properly managed. Client is agreeable to trial of these medications. 09/17/2024 ADHD (attention deficit hyperactivity disorder), combined type (ICD-10 - F90.2) Client had requested to discontinue mood stabilizers at prior appt believing she was not bipolar due to dx being made when she was in throes of opioid addiction. She has not done well since discontinuation of Latuda with labile mood swings, increased depression. Client currently presents hypomanic to manic with pressured speech, irritability, circumstantial speech patterns, disrupted relationships. Discussed with client that given this, her depression is not MDD like she was hopeful for, but rather more aligned with a bipolarity. She breaks down crying stating, I don't want to be bipolar! Education provided and client calms. She is agreeable to restarting Latuda at 20 mg. If side effects, can consider Lamictal, Vraylar, Caplyta as other alternatives. Client has never trialed these. 09/17/2024 Binge eating disorder, moderate (ICD-10 - F50.811) Client had requested to discontinue mood stabilizers at prior appt believing she was not bipolar due to dx being made when she was in throes of opioid addiction. She has not done well since discontinuation of Latuda with labile mood swings, increased depression. Client currently presents hypomanic to manic with pressured speech, irritability, circumstantial speech patterns, disrupted relationships. Discussed with client that given this, her depression is not MDD like she was hopeful for, but rather more aligned with a bipolarity. She breaks down crying stating, I don't want to be bipolar! Education provided and client calms. She is agreeable to restarting Latuda at 20 mg. If side effects, can consider Lamictal, Vraylar, Caplyta as other alternatives. Client has never trialed these. 10/13/2024 ADHD (attention deficit hyperactivity disorder), combined type (ICD-10 - F90.2) Client with continued symptoms that appear to be hypomania to triston in origin unless etiologic medical issue is presenting that medical community has been unable to distinigish at this present time. 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 Discussed increasing to 40 mg and adding Lithum 300 mg ER at bedtime and discontinuing Vyvanse. She is agreeable as she is trying to avoid a crisis stay due to starting a new job. This provider discussed that continue to believe bipolar 1 is correct diagnosis despite co-occuring substance use history and that this needs to be properly managed. Client is agreeable to trial of these medications. 05/04/2024 Binge eating disorder (ICD-10 - F50.81) Client doing well overall, no changes to treatment plan currently. 08/10/2024 Binge eating disorder, moderate (ICD-10 - F50.811) Concerning that despite recent addition of pilocarpine client has had no relief of xerostomia. She has cut ditropan (prescribed by another provider) in half dose and states this has not helped (directed by different provider). That it continues to be the same or worsen. Client has been on same medications with no issue for some time; xerostomia in last several months. Discussed with client suspect there could be underlying medical cause as usually if medication related pilocarpine is helpful. Will decrease bupropion to 150 mg XL to limit norepineprine burden (could be helpful) and as it is client's goal to wean off this medication anyhow. Doubtful though, that this will help much and did let client know this. Encouraged client to f/u with PCP and let them know pilocarpine currently ineffective. Recommended client seek further autoimmune w/u per PCP to r/o underlying disorder (ie Sjogren syndrome). Client verbalizes understanding. 07/29/2024 Binge eating disorder, moderate (ICD-10 - F50.811) Client has taken herself off lurasidone a few months ago. She feels dx of bipolar one was a misdx and that she is MDD with ADHD and TANO. Client had substance use disorder when dx was made by prior provider. Discussed to continue to monitor mood. However, anxiety has been very very high since weaning off Latuda and did discuss with client that this could be part of the cause. States she had not thought of that. Will increase gabapentin and start pilocarpine for dry mouth. Will f/u with client in a few weeks to discuss other unresolved issues in further depth and check on status as ran out of time. Client had many, many things she wished to go over in 20 minutes. Client is agreeable to this. Vyvanse dose decreased to 40 mg as well to see if helpful for dry mouth also. 11/14/2023 ADHD (attention deficit hyperactivity disorder), combined type (ICD-10 - F90.2) Client requests to be placed on another ADHD medication due to lack of being able to percure Vyvanse. Changed to methylphenidate. Naltrexone dcd due to client feeling no longer needed (no cravings anymore). Client having nightmares daily. Agreeable to trial of prazosin. No other changes needed. 02/04/2024 Bipolar 1 disorder (ICD-10 - F31.9) All lab work WNL (corisol, hormones, CBC, CMP, thyroid) per client's report though client continues to gain weight. Feels she has been binging again since off Vyvanse, that methyphenidate has not been effective for her binge eating disorder. Has been eating to point of discomfort and guilt on daily basis and is rapidly gaining weight. Requests to be placed back on Vyvanse. Wants to also slowly taper down on Latuda, has self tapered down to 40 mg and been on this for last month with good results. Will write for 20 mg. See HPI for details about bipolar versus MDD history. 02/04/2024 Nightmares (ICD-10 - F51.5) All lab work WN L (corisol, hormones, CBC, CMP, thyroid) per client's report though client continues to gain weight. Feels she has been binging again since off Vyvanse, that methyphenidate has not been effective for her binge eating disorder. Has been eating to point of discomfort and guilt on daily basis and is rapidly gaining weight. Requests to be placed back on Vyvanse. Wants to also slowly taper down on Latuda, has self tapered down to 40 mg and been on this for last month with good results. Will write for 20 mg. See HPI for details about bipolar versus MDD history. 11/14/2023 Nightmares (ICD-10 - F51.5) Client requests to be placed on another ADHD medication due to lack of being able to percure Vyvanse. Changed to methylphenidate. Naltrexone dcd due to client feeling no longer needed (no cravings anymore). Client having nightmares daily. Agreeable to trial of prazosin. No other changes needed. 05/04/2024 Nightmares (ICD-10 - F51.5) Client doing well overall, no changes to treatment plan currently. 10/13/2024 Nightmares (ICD-10 - F51.5) Client with continued symptoms that appear to be hypomania to triston in origin unless etiologic medical issue is presenting that medical community has been unable to distinigish at this present time. 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 Discussed increasing to 40 mg and adding Lithum 300 mg ER at bedtime and discontinuing Vyvanse. She is agreeable as she is trying to avoid a crisis stay due to starting a new job. This provider discussed that continue to believe bipolar 1 is correct diagnosis despite co-occuring substance use history and that this needs to be properly managed. Client is agreeable to trial of these medications. 08/10/2024 Medication side effects (ICD-10 - T88.7XXA) Concerning that despite recent addition of pilocarpine client has had no relief of xerostomia. She has cut ditropan (prescribed by another provider) in half dose and states this has not helped (directed by different provider). That it continues to be the same or worsen. Client has been on same medications with no issue for some time; xerostomia in last several months. Discussed with client suspect there could be underlying medical cause as usually if medication related pilocarpine is helpful. Will decrease bupropion to 150 mg XL to limit norepineprine burden (could be helpful) and as it is client's goal to wean off this medication anyhow. Doubtful though, that this will help much and did let client know this. Encouraged client to f/u with PCP and let them know pilocarpine currently ineffective. Recommended client seek further autoimmune w/u per PCP to r/o underlying disorder (ie Sjogren syndrome). Client verbalizes understanding. 07/29/2024 Medication side effects (ICD-10 - T88.7XXA) Client has taken herself off lurasidone a few months ago. She feels dx of bipolar one was a misdx and that she is MDD with ADHD and TANO. Client had substance use disorder when dx was made by prior provider. Discussed to continue to monitor mood. However, anxiety has been very very high since weaning off Latuda and did discuss with client that this could be part of the cause. States she had not thought of that. Will increase gabapentin and start pilocarpine for dry mouth. Will f/u with client in a few weeks to discuss other unresolved issues in further depth and check on status as ran out of time. Client had many, many things she wished to go over in 20 minutes. Client is agreeable to this. Vyvanse dose decreased to 40 mg as well to see if helpful for dry mouth also. 09/17/2024 Nightmares (ICD-10 - F51.5) Client had requested to discontinue mood stabilizers at prior appt believing she was not bipolar due to dx being made when she was in throes of opioid addiction. She has not done well since discontinuation of Latuda with labile mood swings, increased depression. Client currently presents hypomanic to manic with pressured speech, irritability, circumstantial speech patterns, disrupted relationships. Discussed with client that given this, her depression is not MDD like she was hopeful for, but rather more aligned with a bipolarity. She breaks down crying stating, I don't want to be bipolar! Education provided and client calms. She is agreeable to restarting Latuda at 20 mg. If side effects, can consider Lamictal, Vraylar, Caplyta as other alternatives. Client has never trialed these. 09/17/2024 Medication side effects (ICD-10 - T88.7XXA) Client had requested to discontinue mood stabilizers at prior appt believing she was not bipolar due to dx being made when she was in throes of opioid addiction. She has not done well since discontinuation of Latuda with labile mood swings, increased depression. Client currently presents hypomanic to manic with pressured speech, irritability, circumstantial speech patterns, disrupted relationships. Discussed with client that given this, her depression is not MDD like she was hopeful for, but rather more aligned with a bipolarity. She breaks down crying stating, I don't want to be bipolar! Education provided and client calms. She is agreeable to restarting Latuda at 20 mg. If side effects, can consider Lamictal, Vraylar, Caplyta as other alternatives. Client has never trialed these. 10/13/2024 Binge eating disorder (ICD-10 - F50.81) Client with continued symptoms that appear to be hypomania to triston in origin unless etiologic medical issue is presenting that medical community has been unable to distinigish at this present time. 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 Discussed increasing to 40 mg and adding Lithum 300 mg ER at bedtime and discontinuing Vyvanse. She is agreeable as she is trying to avoid a crisis stay due to starting a new job. This provider discussed that continue to believe bipolar 1 is correct diagnosis despite co-occuring substance use history and that this needs to be properly managed. Client is agreeable to trial of these medications. [place]2023 [place]. Discussed sleep hygiene and caffeine intake with encouragement to limit electronic devices an hour before bed and to limit caffeine after 3:00pm. Exercise benefits for mood and health discussed. Psychoeducation regarding psychiatric illness provided. Client was educated about risks and benefits of medication, alternatives to medication, off label uses of medication, suicidal ideation with SSRIs, self-administrati on and compliance with medication along with how to safely store medication. Verbal informed consent obtained. Client agrees to return sooner if symptoms worsen or if suicidal or homicidal ideations occur. Client has the phone number to the 24-hour crisis line at [facility]. Questions addressed. Client verbalized understanding of all information and is agreeable to treatment plan. Client requests to be placed on another ADHD medication due to lack of being able to percure Vyvanse. Changed to methylphenidate. Naltrexone dcd due to client feeling no longer needed (no cravings anymore). Client having nightmares daily. Agreeable to trial of prazosin. No other changes needed. 02/04/2024 [place]. Discussed sleep hygiene and caffeine intake with encouragement to limit electronic devices an hour before bed and to limit caffeine after 3:00pm. Exercise benefits for mood and health discussed. Psychoeducation regarding psychiatric illness provided. Client was educated about risks and benefits of medication, alternatives to medication, off label uses of medication, suicidal ideation with SSRIs, self-administrati on and compliance with medication along with how to safely store medication. Verbal informed consent obtained. Client agrees to return sooner if symptoms worsen or if suicidal or homicidal ideations occur. Client has the phone number to the 24-hour crisis line at [facility]. Questions addressed. Client verbalized understanding of all information and is agreeable to treatment plan. All lab work WNL (corisol, hormones, CBC, CMP, thyroid) per client's report though client continues to gain weight. Feels she has been binging again since off Vyvanse, that methyphenidate has not been effective for her binge eating disorder. Has been eating to point of discomfort and guilt on daily basis and is rapidly gaining weight. Requests to be placed back on Vyvanse. Wants to also slowly taper down on Latuda, has self tapered down to 40 mg and been on this for last month with good results. Will write for 20 mg. See HPI for details about bipolar versus MDD history. 05/04/2024 [place]. Discussed sleep hygiene and caffeine intake with encouragement to limit electronic devices an hour before bed and to limit caffeine after 3:00pm. Exercise benefits for mood and health discussed. Psychoeducation regarding psychiatric illness provided. Client was educated about risks and benefits of medication, alternatives to medication, off label uses of medication, suicidal ideation with SSRIs, self-administrati on and compliance with medication along with how to safely store medication. Verbal informed consent obtained. Client agrees to return sooner if symptoms worsen or if suicidal or homicidal ideations occur. Client has the phone number to the 24-hour crisis line at [facility]. Questions addressed. Client verbalized understanding of all information and is agreeable to treatment plan. Client doing well overall, no changes to treatment plan currently. 07/29/2024 [place]. Discussed sleep hygiene and caffeine intake with encouragement to limit electronic devices an hour before bed and to limit caffeine after 3:00pm. Exercise benefits for mood and health discussed. Psychoeducation regarding psychiatric illness provided. Client was educated about risks and benefits of medication, alternatives to medication, off label uses of medication, suicidal ideation with SSRIs, self-administrati on and compliance with medication along with how to safely store medication. Verbal informed consent obtained. Client agrees to return sooner if symptoms worsen or if suicidal or homicidal ideations occur. Client has the phone number to the 24-hour crisis line at [facility]. Questions addressed. Client verbalized understanding of all information and is agreeable to treatment plan. Client has taken herself off lurasidone a few months ago. She feels dx of bipolar one was a misdx and that she is MDD with ADHD and TANO. Client had substance use disorder when dx was made by prior provider. Discussed to continue to monitor mood. However, anxiety has been very very high since weaning off Latuda and did discuss with client that this could be part of the cause. States she had not thought of that. Will increase gabapentin and start pilocarpine for dry mouth. Will f/u with client in a few weeks to discuss other unresolved issues in further depth and check on status as ran out of time. Client had many, many things she wished to go over in 20 minutes. Client is agreeable to this. Vyvanse dose decreased to 40 mg as well to see if helpful for dry mouth also. 08/10/2024 [place]. Discussed sleep hygiene and caffeine intake with encouragement to limit electronic devices an hour before bed and to limit caffeine after 3:00pm. Exercise benefits for mood and health discussed. Psychoeducation regarding psychiatric illness provided. Client was educated about risks and benefits of medication, alternatives to medication, off label uses of medication, suicidal ideation with SSRIs, self-administrati on and compliance with medication along with how to safely store medication. Verbal informed consent obtained. Client agrees to return sooner if symptoms worsen or if suicidal or homicidal ideations occur. Client has the phone number to the 24-hour crisis line at [facility]. Questions addressed. Client verbalized understanding of all information and is agreeable to treatment plan. Concerning that despite recent addition of pilocarpine client has had no relief of xerostomia. She has cut ditropan (prescribed by another provider) in half dose and states this has not helped (directed by different provider). That it continues to be the same or worsen. Client has been on same medications with no issue for some time; xerostomia in last several months. Discussed with client suspect there could be underlying medical cause as usually if medication related pilocarpine is helpful. Will decrease bupropion to 150 mg XL to limit norepineprine burden (could be helpful) and as it is client's goal to wean off this medication anyhow. Doubtful though, that this will help much and did let client know this. Encouraged client to f/u with PCP and let them know pilocarpine currently ineffective. Recommended client seek further autoimmune w/u per PCP to r/o underlying disorder (ie Sjogren syndrome). Client verbalizes understanding. 09/17/2024 [place]. Discussed sleep hygiene and caffeine intake with encouragement to limit electronic devices an hour before bed and to limit caffeine after 3:00pm. Exercise benefits for mood and health discussed. Psychoeducation regarding psychiatric illness provided. Client was educated about risks and benefits of medication, alternatives to medication, off label uses of medication, suicidal ideation with SSRIs, self-administrati on and compliance with medication along with how to safely store medication. Verbal informed consent obtained. Client agrees to return sooner if symptoms worsen or if suicidal or homicidal ideations occur. Client has the phone number to the 24-hour crisis line at [facility]. Questions addressed. Client verbalized understanding of all information and is agreeable to treatment plan. Client had requested to discontinue mood stabilizers at prior appt believing she was not bipolar due to dx being made when she was in throes of opioid addiction. She has not done well since discontinuation of Latuda with labile mood swings, increased depression. Client currently presents hypomanic to manic with pressured speech, irritability, circumstantial speech patterns, disrupted relationships. Discussed with client that given this, her depression is not MDD like she was hopeful for, but rather more aligned with a bipolarity. She breaks down crying stating, I don't want to be bipolar! Education provided and client calms. She is agreeable to restarting Latuda at 20 mg. If side effects, can consider Lamictal, Vraylar, Caplyta as other alternatives. Client has never trialed these. 10/13/2024 [place]. Discussed sleep hygiene and caffeine intake with encouragement to limit electronic devices an hour before bed and to limit caffeine after 3:00pm. Exercise benefits for mood and health discussed. Psychoeducation regarding psychiatric illness provided. Client was educated about risks and benefits of medication, alternatives to medication, off label uses of medication, suicidal ideation with SSRIs, self-administrati on and compliance with medication along with how to safely store medication. Verbal informed consent obtained. Client agrees to return sooner if symptoms worsen or if suicidal or homicidal ideations occur. Client has the phone number to the 24-hour crisis line at [facility]. Questions addressed. Client verbalized understanding of all information and is agreeable to treatment plan. Client with continued symptoms that appear to be hypomania to triston in origin unless etiologic medical issue is presenting that medical community has been unable to distinigish at this present time. 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 Discussed increasing to 40 mg and adding Lithum 300 mg ER at bedtime and discontinuing Vyvanse. She is agreeable as she is trying to avoid a crisis stay due to starting a new job. This provider discussed that continue to believe bipolar 1 is correct diagnosis despite co-occuring substance use history and that this needs to be properly managed. Client is agreeable to trial of these medications. Plan Of Treatment Next Appt Details Provider Name:Michael Norwood , 11/12/2024 08:40:00 AM, [address], [place], [address], Insurance Providers Payer Name Payer Address Payer Phone Subscriber Number Group Number Insured Name Patient Relationship to Insured Coverage Start Date Coverage End Date [facility] [address] [place] [phone] [id number] Wendy Paz Self - patient is the insured 4 [facility] [address] [place] [id number] Wendy Paz Self - patient is the insured [address] [address] [id number] Wendy Paz Self - patient is the insured 1 3 MEDICAID [address] [place] [address] [id number] Wendy Paz Self - patient is the insured [address] [address] [id number] Wendy Paz Self - patient is the insured 4 [address] [employer] [address] [address] [id number] Wendy Paz Self - patient is the insured 5 Medical (General) History Medical History History ICD Code Bipolar 1 disorder F31.9 Generalized anxiety disorder F41.1 Opioid dependence, uncomplicated F11.20 Surgical History Surgery Date(Month/Year) D&C Hospitalization History Reason Date(Month/Year) CRU - Depression Summer 2020 - [place]. December 2021
--- OUTSIDE RECORDS SUMMARY | 2024-11-11 22:58 | XMS_ITS | Encounter Summary ---
Author Organization [facility] Address [address] [place] [address] Care Team Providers Care Representative Government Relations Name Role Phone Unavailable Primary Care Provider Unavailabl e Encounter Details Date Type Department Care Team (Late st Contact Info) Description 11/01/2024 Results Follow-Up [facility] EXPERIMENTAL ASSEMBLER - [facility] [address] [place] [phone] Benjamin Carbajal MD [address] [place] [phone] GC/CHLAMYDIA/TRICHOM ONAS, UROGENITAL Social History Tobacco Use Types Packs/Day Years Used Date Smoking Tobacco: Former Cigarettes 1 15 2 024 - 10/31/2023 Comments:still vape Alcohol Use Standard Drinks/Week Comments Not Currently 0 (1 standard drink = 0.6 oz pur e alcohol) Comments Unknown Sex and Gender Information Value Date Recorded Sex Assigned at Not on file Legal Sex Female 1:27 PM ENGLISH PROFESSOR Gender Identity Not on file Sexual Orientation Not on file documented as of this encounter Plan of Treatment Upcoming Encounters Date Type Department Care Team (Latest Contact Info) Description 11/19/2024 8:30 AM ENGLISH PROFESSOR Ancillary Procedure [facility] EXPERIMENTAL ASSEMBLER - [facility] [address] [place] [phone] 11/19/2024 9:00 AM ENGLISH PROFESSOR Office Visit [facility] EXPERIMENTAL ASSEMBLER - [facility] [address] [place] [phone] Benjamin Carbajal MD [address] [facility] [address] [place] [phone] 12/30/2024 9:15 AM CDT Office Visit [facility] [address] [facility] [address] [place] [address] Benjamin Carbajal MD [facility] [facility] [address] [place] [phone] Cherie Conn MD [address] [facility] [address] [place] [phone] 04/13/2025 10:20 AM CDT Appointment [facility] [address] [place] [phone] Benjamin Carbajal MD [address] [facility] [address] [place] [phone] documented as of this encounter Visit Diagnoses Not on filedocumented in this encounter Additional Health Concerns Assessment Noted Time PHQ-9 Depression Total Score: 2 10/30/19 25 10:00 AM ENGLISH PROFESSOR documented as of this encounter
--- OUTSIDE RECORDS SUMMARY | 2024-11-11 22:58 | XMS_ITS | Encounter Summary ---
Author Organization [facility] Address [address] [facility] [place] [address] Care Team Providers Care Pediatric Rn Name Role Phone Unavailable Primary Care Provider Unavailabl e Reason for Visit * Reason Comments Establish Care Tailbone fracture Encounter Details Date Type Department Care Team (Late st Contact Info) Description 11/10/2024 3:00 PM OR ASSISTANT Office Visit [facility] [address] [place] [phone] Isac Feliciano MD [address] [place], [place] [id number] Social History Tobacco Use Types Packs/Day Years [...] on file documented as of this encounter Last Filed Vital Signs Vital Sign Reading Time Taken Comments Blood Pressure 118/79 11/10/2024 3:29 PM OR ASSISTANT Pulse 84 11/10/2024 3:29 PM OR ASSISTANT Temperature 36.9 C (98.5 F) 11/10/2024 3:29 PM OR ASSISTANT Respiratory Rate 18 11/10/2024 3:29 PM OR ASSISTANT Oxygen Saturation 100% 11/10/2024 3:29 PM OR ASSISTANT Inhaled Oxygen Concentration - - Weight 81.6 kg (180 lb) 11/10/2024 3:29 PM OR ASSISTANT Height 170.2 cm (5' 7 ) 11/10/2024 3:29 PM OR ASSISTANT Body Mass Index 28.19 11/10/2024 3:29 PM OR ASSISTANT documented in this encounter Plan of Treatment Upcoming Encounters Date Type Department Care Team (Late st Contact Info) Description 12/25/2024 9:30 AM CDT Office Visit [facility] [address] [place] [phone] Genoveva Ward, [employer]RO[employer] SWITCH[employer] [address] [place] [address] documented as of this encounter Visit Diagnoses Not on filedocumented in this encounter
--- OUTSIDE RECORDS SUMMARY | 2024-11-11 22:58 | XMS_ITS | Patient Health Summary ---
Author Organization [facility] Address [address] [place] [address] Care Team Providers Care Makeup Artistry Instructor Name Role Phone Unavailable Primary Care Provider Unavailabl e Note from [facility],non-owned Affiliates and Associated Physician Practices is amultiple site organization consisting of ambulatory clinics and hospital sitesin [place], [place], [place] and [place]. This disclosure is being madepursuant to the Care Everywhere program and may not contain all information available regarding this patient. Last updated 18.[facility] Allergies * Sulfa Drugs(Urticaria,Itching,Rash) -High Criticality Medications * Be aware that medications may not be up to date on this document. Alwaysverify current medications with the patient. * atorvastatin (Lipitor) 20 MG tablet Take 1 (one) tablet by mouth once daily * buPROPion XL 24hr (Wellbutrin-XL) 150 MG tablet(Started 09/28/2024) Take 1 (one) tablet by mouth every morning * amoxicillin-clavulanate (Augmentin) 875-125 MG tablet(Started 10/30/2024) * diclofenac sodium EC (Voltaren) 50 MG tablet(Started 10/29/2024) Take 1 (one) tablet by mouth * fluticasone propionate (Flonase) 50 MCG/ACT nasal spray(Started 08/26/2024) * gabapentin (Neurontin) 400 MG capsule(Started 10/09/2024) Take 1 (one) capsule by mouth 3 times daily * levothyroxine (Synthroid) 50 MCG tablet(Started 09/28/2024) Take 1 (one) tablet by mouth once daily * lithium CR (Lithobid) 300 MG tablet(Started 10/13/2024) Take 1 (one) tablet by mouth 2 times daily * lurasidone (Latuda) 40 MG tablet(Started 10/13/2024) 1 (one) tablet * nystatin (Mycostatin) 134965 UNIT/ML suspension(Started 08/19/2024) * oxyBUTYnin (Ditropan) 5 MG tablet Take 1 (one) tablet by mouth 3 times daily * pilocarpine HCl (Salagen) 5 MG tablet(Started 07/29/2024) Take 1 (one) tablet by mouth * prazosin (Minipress) 1 MG capsule(Started 09/18/2024) TAKE 1 CAPSULE BY MOUTH DAILY AT BEDTIME NEEDED FOR NIGHTMARES * propranolol ER 24hr (Inderal LA) 60 MG capsule Take 1 (one) capsule by mouth once daily * topiramate (Topamax) 100 MG tablet(Started 09/28/2024) Take 1 (one) tablet by mouth at bedtime * venlafaxine XR 24hr (Effexor XR) 150 MG capsule(Started 09/28/2024) 1 (one) capsule Social History Tobacco Use Types Packs/Day Years [...] Comments Blood Pressure 118/79 11/10/2024 3:29 PM AMMUNITION ASSEMBLY LABORER Pulse 84 11/10/2024 3:29 PM AMMUNITION ASSEMBLY LABORER Temperature 36.9 C (98.5 F) 11/10/2024 3:29 PM AMMUNITION ASSEMBLY LABORER Respiratory Rate 18 11/10/2024 3:29 PM AMMUNITION ASSEMBLY LABORER Oxygen Saturation 100% 11/10/2024 3:29 PM AMMUNITION ASSEMBLY LABORER Inhaled Oxygen Concentration - - Weight 81.6 kg (180 lb) 11/10/2024 3:29 PM AMMUNITION ASSEMBLY LABORER Height 170.2 cm (5' 7 ) 11/10/2024 3:29 PM AMMUNITION ASSEMBLY LABORER Body Mass Index 28.19 11/10/2024 3:29 PM AMMUNITION ASSEMBLY LABORER
--- OUTSIDE RECORDS SUMMARY | 2024-11-11 22:59 | XMS_ITS | Clinical Summary ---
Author Organization [facility] Address [address] [place] [address] Phone Care Team Providers Care Restaurant Operations Manager Name Role Phone Unavailable Primary Care Provider Unavailabl e Allergies Active Allergy Reactions Criticality Noted Date Comments Sulfa (Sulfonamide Antibiotics) Hives,Itching,Rash,Unknown High 04/30/2022 Medications topiramate (TOPAMAX) 100 mg tablet Take 100 mg by mouth daily at bedtime. 09/28/2024 Active lithium carbonate (LITHOBID) 300 mg Extended Release tablet Take 300 mg by mouth 2 times daily. 10/13/2024 Active atorvastatin (LIPITOR) 20 mg tablet Take 20 mg by mouth daily. Active propranoloL (INDERAL LA) 60 mg Long Acting 24 hour capsule Take 60 mg by mouth daily. Active lurasidone (LATUDA) 40 mg Tablet tablet 40 mg. 10/13/2024 Activ e venlafaxine (EFFEXOR XR) 150 mg Extended Release 24 hour capsule 150 mg. 09/28/2024 Active oxyBUTYnin (DITROPAN) 5 mg tablet Take 5 mg by mouth 3 times daily. Active diclofenac sodium (VOLTAREN) 50 mg Tablet, Delayed Release (E.C.) Take 50 mg by mouth. 10/29/2024 Active pilocarpine (SALAGEN) 5 mg Tablet Take 5 mg by mouth. 07/29/2024 Active Active Problems Problem Noted Date Diagnosed Date Overactive bladder 10/30/2024 IUD (intrauterine device) in place 10/30/2024 Constipation 10/30/2024 Encounters Date Type Department Care Team Description 11/03/2024 External Device Data [facility] ABSTRACTION Provider, Abstract 11/03/2024 External Device Data [facility] ABSTRACTION Provider, Abstract 11/03/2024 External Device Data [facility] ABSTRACTION Provider, Abstract 11/01/2024 Results Follow-Up [facility] REACTOR OPERATOR [address] [phone] Benjamin Carbajal MD GC/CHLAMYDIA/TRICHOMO TERRA, UROGENITAL 10/30/2024 10:15 AM VICE PRESIDENT OF BRAND MANAGEMENT Office Visit [facility] REACTOR OPERATOR [place] [id number] [address] Benjamin Carbajal MD Well woman exam with routine gynecological exam (Primary Dx); Declined influenza vaccine; Constipation, unspecified constipation type; Pelvic pain in female; IUD (intrauterine device) in place; Overactive bladder from Last 3 Months Family History Medical History Relation Name Comments Cancer Father carrie paz Diabetes Father carrie paz type two Colon Cancer Maternal Grandfather keesha omalley Heart Disease Maternal Grandfather keesha omalley Hypertension Maternal Grandfather keesha omalley Hypertension Maternal Grandmother geri omalley Mental illness Maternal Grandmother geri omalley Mental illness Mother marge paz Heart Disease Paternal Grandfather elsie paz Breast Cancer Paternal Grandmother oleg paz High Cholesterol Paternal Grandmother oleg paz Stroke Paternal Grandmother oleg paz Mental illness Sister annita paz Relation Name Status Comments Father carrie paz Alive Maternal Grandfather keesha omalley Alive Maternal Grandmother geri omalley Alive Mother marge paz Alive Paternal Grandfather elsie paz Alive Paternal Grandmother oleg paz Alive Sister annita paz Alive Social History Tobacco Use Types Packs/Day Years Used Date Smoking Tobacco: Former Cigarettes 1 15 2 024 - 10/31/2023 Comments:still vape Alcohol Use Standard Drinks/Week Comments Not Currently 0 (1 standard drink = 0.6 oz pur e alcohol) Comments Unknown Sex and Gender Information Value Date Recorded Sex Assigned at Not on file Legal Sex Female 1:27 PM VICE PRESIDENT OF BRAND MANAGEMENT Gender Identity Not on file Sexual Orientation Not on file Last Filed Vital Signs Vital Sign Reading Time Taken Comments Blood Pressure - - Pulse 94 10/30/2024 10:33 AM VICE PRESIDENT OF BRAND MANAGEMENT Temperature - - Respiratory Rate - - Oxygen Saturation 98% 10/30/2024 10:33 AM VICE PRESIDENT OF BRAND MANAGEMENT Inhaled Oxygen Concentration - - Weight 81.8 kg (180 lb 6.4 oz) 10/30/2024 10:33 AM VICE PRESIDENT OF BRAND MANAGEMENT Height - - Body Mass Index - - Plan of Treatment Upcoming Encounters Date Type Department Care Team (Latest Contact Info) Description 11/19/2024 8:30 AM VICE PRESIDENT OF BRAND MANAGEMENT Ancillary Procedure [facility] REACTOR OPERATOR - [address] [place] [phone] 11/19/2024 9:00 AM VICE PRESIDENT OF BRAND MANAGEMENT Office Visit [facility] REACTOR OPERATOR - [address] [address] Benjamin Carbajal MD [address] [phone] 12/30/2024 9:15 AM CDT Office Visit [facility] [address] [address] Benjamin Carbajal MD [address] [phone] Cherie Conn MD [address] [phone] 04/13/2025 10:20 AM CDT Appointment [address] [phone] Benjamin Carbajal MD [address] [phone] Health Maintenance Due Date Last Done Comments Pre-Diabetes and Diabetes Screening 1981 DTAP/TDAP/TD VACCINES (1 - Tdap) 2000 HEPATITIS B VACCINES (1 of 3 - 19+ 3-dose series) 2000 BREAST CANCER SCREENING 04/09/2025 04/09/20 24, 10/29/2022, 09/15/2020, Additional history exists CERVICAL CANCER SCREENING 11/26/2026 11/26/2023 INFLUENZA VACCINE Completed 10/30/2024 Preventative Visit- Commercial Completed 10/30/2024, 07/31/2019 HPV VACCINES Aged Out No longer eligi ble based on patient's age to complete this topic Procedures Procedure Name Priority Date/Time Associated Diagnosis Comments GC/CHLAMYDIA/TRICHO MONAS, UROGENITAL Routine 10/30/2024 11:48 AM VICE PRESIDENT OF BRAND MANAGEMENT Well woman exam with routine gynecological exam from Last 3 Months Results * GC/CHLAMYDIA/TRICHOMONAS, UROGENITAL (10/30/2024 11:48 AM VICE PRESIDENT OF BRAND MANAGEMENT) CHLAMYDIA TRACHOMATIS RNA, TMA, UROGENITAL NOT DETECTED NOT DETECTED [facility] NEISSERIA GONORRHOEAE RNA, TMA, UROGENITAL NOT DETECTED NOT DETECTED [facility] COMMENT INFECTIOUS DISEASE [facility] Comment: The analytical performance characteristics of this assay, when used to test SurePath(TM) specimens have been determined by [facility]. The modifications have not been cleared or approved by the FDA. This assay has been validated pursuant to the CLIA regulations and is used for clinical purposes. For additional information, please refer to https://[employer]/faq/GRF116 (This link is being provided for information/ educational purposes only.) TRICHOMONAS VAGINALIS RNA QUAL TMA NOT DETECTED NOT DETECTED [facility] Comment: For additional information, please refer to http://education.[employer]/ faq/Trichomonastma (This link is being provided for informational/ educational purposes only.) Test Performed at: [facility] [id number] [place] [address] Katina Andre MD Genital SWAB OF ENDOCERVIX / Unknown 10/30/2024 11:48 AM VICE PRESIDENT OF BRAND MANAGEMENT 10/31/2024 6:53 AM VICE PRESIDENT OF BRAND MANAGEMENT us Benjamin Carbajal MD MICROBIOLOGY - GENERAL ORDERAB LES Final Result [facility] [phone] [facility] [id number] [place] [id number] from Last 3 Months Insurance [facility] RISK MANAGEMENT
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
--- OUTSIDE RECORDS SUMMARY | 2024-11-11 22:59 | XMS_ITS ---
Author Organization [facility] Address [address] [place] [address] Care Team Providers Care Recreation Supervisor Name Role Phone Jed Roy Primary Care Provider Michael Brown Unavailable [phone] Allergies Allergen (clinical drug ingredient) Drug/Non Drug Allergy documented on EMR Reaction Allergy Type Onset Date Status Sulfacet-R Unknown Drug Allergy Active REASON FOR VISIT 6 Week Psych F/U & Med Refill Medications Medication SIG (Take, Route, Frequency, Duration) Notes Start Date End Date Status Lurasidone HCl 20 MG 1 tablet in the evening with food Orally Once a day for 30 day(s) Lurasidone restarting 09/18/2024 Active buPROPion HCl ER (XL) 150 MG 1 tablet in the morning Orally Once a day for 30 days Lurasidone restarting Active Gabapentin 400 MG 1 capsule as needed for anxiety Orally Three times a day for 30 days Lurasidone restarting Active Venlafaxine HCl ER 150 MG 1 capsule with food Orally Once a day for 30 days Lurasidone restarting Active Prazosin HCl 1 MG 1 capsule at bedtime Orally Once a day for 30 days As needed for nightmares Lurasidone restarting 11/14/2023 Active Atorvastatin Calcium 10 MG 1 tablet Orally Once a day for 30 day(s) 06/07/2021 Active Thyroid 15 MG 1 tablet on an empty stomach Orally Once a day for 30 day(s) Active Pilocarpine HCl 5 MG 1 tablet Orally Three times a day for 30 days Lurasidone restarting 07/29/2024 Active Zovirax 5 % 1 application every 3 hours Externally Six times a day for 7 days 05/19/2021 Active Vyvanse 40 MG 1 capsule in the morning Orally Once a day. Please fill on or after September 20, 2024. for 30 days Lurasidone restarting 09/18/2024 Active oxyBUTYnin Chloride 5 MG 1 tablet Orally Twice a day Active Social History Sex Assigned At : Social History Observation Description Sex Assigned At Female Vital Signs Weight 189.2 lbs 09/17/2024 Height 67 in 09/17/2024 BMI 29.63 kg/m2 09/17/2024 Blood pressure systolic 108 mm Hg 09/17/20 24 Blood pressure diastolic 68 mm Hg 024 Heart Rate 88 /min 09/17/2024 Oximetry 97 % 09/17/2024 Respiratory Rate 16 /min 09/17/2024 Encounters Encounter Location Date Provider Diagnosis [address] [address] 09/17/2024 Michael Brown Generalized anxiety disorder F41.1 ; Bipolar 1 disorder F31.9 ; ADHD (attention deficit hyperactivity disorder), combined type F90.2 ; Binge eating disorder, moderate F50.811 ; Nightmares F51.5 and Medication side effects T88.7XXA Assessments Encounter Date Diagnosis (ICD Code) Assessment [...] alternatives. Client has never trialed these. 09/17/2024 ADHD (attention deficit hyperactivity disorder), combined [...] alternatives. Client has never trialed these. 09/17/2024 Nightmares (ICD-10 - F51.5) Client had [...] alternatives. Client has never trialed these. [place] number to the 24-hour crisis line at [facility]. Questions addressed. Client verbalized understanding [...] other alternatives. Client has never trialed these. Plan Of Treatment Medication Medication Name Sig Start Date Stop Date Notes Lurasidone HCl 20 MG 1 tablet in the evening with food Orally Once a day for 30 day(s) 09/18/2024 Lurasidone restartin g buPROPion HCl ER (XL) 150 MG 1 tablet in the morning Orally Once a day for 30 days Lurasidone restartin g Gabapentin 400 MG 1 capsule as needed for anxiety Orally Three times a day for 30 days Lurasidone restartin g Venlafaxine HCl ER 150 MG 1 capsule with food Orally Once a day for 30 days Lurasidone restartin g Prazosin HCl 1 MG 1 capsule at bedtime Orally Once a day for 30 days 11/14/2023 Lurasidone restartin g Pilocarpine HCl 5 MG 1 tablet Orally Three times a day for 30 days 07/29/2024 Lurasidone restartin g Vyvanse 40 MG 1 capsule in the morning Orally Once a day. Please fill on or after September 20, 2024. for 30 days 09/18/2024 Lurasidone restartin g Treatment Notes Assessment Notes [...] number to the 24-hour crisis line at [facility]. Questions addressed. Client verbalized understanding of all information and is agreeable to treatment plan. Next Appt Details Follow Up: 4 Weeks, Reason: Medication management - can be telehealth appt. or in office appt. Provider Name:Michael Norwood , 11/12/2024 08:40:00 AM, [address] [place] [address], [id number], Progress Notes * Wendy PAZDOB: [birth year] (44 yo F)Acc No.[id number]:09/17/2024 Patient: Wendy PEREZ Provider: Mele Brown DNP, PMHNP-BC :1980 A ge:44 Y S ex:Female Date:09/17/2024 Address:[address] [place], [place] [id number] Pcp:Jed Roy Check In:04:04 PM PHARMACIST Subjective: * Chief Complaints: * 6 Week Psych F/U & Med Refill * HPI: P reventative Health and Wellness follow-up: Action Plans for Clinical Quality Measures: B reast Cancer Screening: N ot addressed during this visit. See notes for details., C ervical Cancer Screening: N ot addressed during this visit. See notes for details., H IV Screening: N ot addressed during this visit. See notes for details.. . I nterim History: Emergency room visit Y [...] patient involved in behavioral health treatment .. C SSRS Interpretation and Follow Up Plan: CSSRS Interpretation [...] and as needed., R isk Disposition from SF M oderate - Follow Up Plan required. S creening: Tillman Suicide Severity Rating Scale (LF) D o [...] L ow Risk. C onstitutional: Session conducted face to face per client's permissions. Client pleasant and conversational however has circumstatial and pressured speech, clearly irritable and labile in mood. HPI: T he patient presented with a broken tailbone, which she described as causing constant pain, likening it to a sledgehammer. The pain has been ongoing since the patient fell down the stairs a week prior to the consultation. In addition to the tailbone injury, the patient also reported having forearm tendonitis since December, which has been causing her significant discomfort. Despite seeking treatment, the patient reported that the pain from the tendonitis has not improved significantly. The patient has been experiencing dry mouth, which she initially thought was medication-related. However, the dry mouth persisted even after medication adjustments, leading to uncertainty about the cause of this symptom. The patient also reported having an abnormal EKG and echo, revealing a heart issue. She has been prescribed Propranolol 60mg ER from her doctor for this. States her doctor knows she is on Vyvanse at 40 mg and has approved this. JAYASHREE given for client to fill out so that these test results can be faxed over. Client labile in mood/affect. Discussed that client has been off mood stabilizers for several months now and condition has declined. That she is presenting with symptoms of bipolar (has been dx bipolar 1 in past but did not agree with dx). Client is upset and states she doesn't want to be bipolar and has been hopeful she did not have this condition. Education provided on dx and tx options. Client agreeable to restarting mood stabilizer. The patient has a family history of autoimmune issues, with her sister having psoriasis and Crohn's disease. She is currently on cholesterol medication. The patient also mentioned that she has recently started a new job at the [employer] and has been dealing with personal issues, including moving her grandmother into assisted living. She is off probation by the nursing board and that this has been a relief. She feels her binge eating has gotten better on the Vyvanse though she has not lost weight. Anxiety: Fair to Poor Depression: Fair to poor Sleep: fair to poor Anger: Having increase in rage per her self report Appt: Fair (some binging activity) Caffeine: none SI: none HI: none Hallucinations: none Cigg/Vap: Is vaping nicotine but not smoking ciggerettes. 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 Currently declines. PCP draws routine lab work. PAST PSYCHOTROPIC MEDICATIONS: Lorazepam 0.5 mg day , Vyvanse 50 mg day (ADHD), Abilify as adjunct to [id number] gain, HISTORICAL BACKGROUND:States she was fired from [...] 20s. When she was 17 yo her BF friend wished she looked like a certain [...] 100 mg bedtime, PCP: Dr. Jean in [place] L[employer] P[employer]ER OR APPLIER is Dr. Annie martinez in [place] Control : IUD Menstrual Periods: irregular This is a 42 year old female who lives her BF. * ROS: P sych ROS: Constitutional R [...] Hospitalization/Major Diagno stic Procedure: [facility] [place]. DecemberRU - Depression Summer 2020 * Family History: F ather: , kidney cancer. M other: alive, healthy. 2 sister(s) - healthy. .? * Social History: P rimary Social History: L iving Arrangement L iving Arrangement: D ependent Living, L iving with: Erica ister,Other:, I s this a supportive environment? N o. A lcohol Use A lcohol Use Frequency: M onthly or less. I llicit Substance Usage I llicit Substance Usage: N o clean since . E mployment Status E mployment Status: U nemployed. M iscellaneous: M ethod of learning P referred method of learning: Negrita elizondo. * Medications: T akingoxyBUTYnin Chloride 5 MG Tablet 1 tablet Orally Twice a day Zovirax 5 % Ointment 1 application every 3 hours Externally Six times a day Atorvastatin Calcium 10 MG Tablet 1 tablet Orally Once a day Thyroid 15 MG Tablet 1 tablet on an empty stomach Orally Once a day buPROPion HCl ER (XL) 150 MG Tablet Extended Release 24 Hour 1 tablet in the morning Orally Once a day , Notes to Pharmacist: Dose lowered to 150 mg.Venlafaxine HCl ER 150 MG Capsule Extended Release 24 Hour 1 capsule with food Orally Once a day , Notes to Pharmacist: Just sending in to have refills on file.Gabapentin 400 MG Capsule 1 capsule as needed for anxiety Orally Three times a day , Notes to Pharmacist: Just sending in to have refills on file.Prazosin HCl 1 MG Capsule 1 capsule at bedtime Orally Once a day As needed for nightmares, Notes to Pharmacist: Just sending in to have refills on file.Pilocarpine HCl 5 MG Tablet 1 tablet Orally Three times a day , Notes to Pharmacist: Just sending in to have refills on file.Vyvanse 40 MG Capsule 1 capsule in the morning Orally Once a day Taking oxyBUTYnin Chloride 5 MG Tablet 1 tablet [...] 150 MG Tablet Extended Release 24 Hour 1 tablet in the morning Orally Once a day , Notes to Pharmacist: Dose lowered to 150 mg.Taking Venlafaxine HCl ER 150 MG Capsule Extended Release 24 Hour 1 capsule with food Orally Once a day , Notes to Pharmacist: Just sending in to have refills on file.Taking Gabapentin 400 MG Capsule 1 capsule as needed for anxiety Orally Three times a day , Notes to Pharmacist: Just sending in to have refills on file.Taking Prazosin HCl 1 MG Capsule 1 capsule at bedtime Orally Once a day As needed for nightmares, Notes to Pharmacist: Just sending in to have refills on file.Taking Pilocarpine HCl 5 MG Tablet 1 tablet Orally Three times a day , Notes to Pharmacist: Just sending in to have refills on file.Taking Vyvanse 40 MG Capsule 1 capsule in the morning Orally Once a day * Allergies: Erica ambrociochidiarcadio-Rno[Allergies Verified] Objective: * Vitals: I nitials: cv, Wt:189.2, Ht: 67, BMI:29.63, BP:108/68, HR:88, Oxygen sat %:97, RR:16, LMP: IUD, Pain scale:5. * Examination: M ental Status Exam: SENSORIUM [...] oderate . ? Assessment: * Assessment: 1. G eneralized anxiety disorder - F41.1 2 . B ipolar 1 disorder - F31.9 (Primary) 3 . A DHD (attention deficit hyperactivity disorder), combined type - F90.2 4 . B smita eating disorder, moderate - F50.811 5 . N ightmares - F51.5 6 . M edication side effects - T88.7XXA Client had requested to disc ontinue mood stabilizers at prior appt believing she [...] other alternatives. Client has never trialed these. Plan: * Treatment: 2. G eneralized anxiety disorder Refill Gabapentin Capsule, 400 MG, 1 capsule as needed for anxiety, Orally, Three times a day, 30 days, 90 Capsule, Refills 1, Notes to Pharmacist: Lurasidone restarting; R efill Venlafaxine HCl ER Capsule Extended Release 24 Hour, 150 MG, 1 capsule with food, Orally, Once a day, 30 days, 30, Refills 1, Notes to Pharmacist: Lurasidone restarting; R efill buPROPion HCl ER (XL) Tablet Extended Release 24 Hour, 150 MG, 1 tablet in the morning, Orally, Once a day, 30 days, 30, Refills 1, Notes to Pharmacist: Lurasidone restarting. 3. B smita eating disorder, moderate Refill Vyvanse Capsule, 40 MG, 1 capsule in the morning, Orally, Once a day. Please fill on or after September 20, 2024., 30 days, 30, Refills 0, Notes to Pharmacist: Lurasidone restarting. ? 4. N ightmares Refill Prazosin HCl Capsule, 1 MG, 1 capsule at bedtime, Orally, Once a day As needed for nightmares, 30 days, 30, Refills 1, Notes to Pharmacist: Lurasidone restarting. 5. M edication side effects Refill Pilocarpine HCl Tablet, 5 MG, 1 tablet, Orally, Three times a day, 30 days, 90 Tablet, Refills 1, Notes to Pharmacist: Lurasidone restarting. 6. [place] [...] number to the 24-hour crisis line at [facility]. Questions addressed. Client verbalized understanding of all information and is agreeable to treatment plan. * Recommended Wellness and Pre vention Guidelines: * S tatus A lert L ast Done N ext Due A ction Taken N ONCOMPLIANT A lcohol use screening - 1 11/18/2023 - N ONCOMPLIANT B reast cancer screening - 1 11/18/2023 - N ONCOMPLIANT C ervical cancer screening - 1 11/18/2023 - N ONCOMPLIANT H IV screening - 1 11/18/2023 - * Labs: * L ab: 12 Panel Urine Drug Screen (Ordered for 09/17/2024) (Collection Date & Time - 09/17/2024 05:08 PM) Value Reference Range T HC POS * C OC neg * M OP (OPI) neg * A MP POS * M ET neg * B AR neg * B ZO neg * M DMA neg * M TD neg * O XY neg * P CP neg * B UP neg * Procedure Codes: 3 008F BODY MASS INDEX [id number] MEDICAL NUTRITION, INDIV, [id number] TOBACCO NON-USER * Preventive Medicine: Counseling: C are goal follow-up plan: B [place] management provided Y es, A nupur Normal BMI Follow-up L ifestyle education regarding diet. * Follow Up: 4 Weeks (Reason: Medication management - can be telehealth appt. or in office appt.) * * MACIST Sign off status: Completed true * Provider: Mele Brown DNP, PMHNP- Date: 11/18/2023 Generated for No faye/Guzman/Nelidaitting on: 0 11/11/2024 10:58 PM PHARMACIST History and Physical Notes * HPI (History [...] involved in behavioral health treatment . Screening Tillman Suicide Sev erity Rating Scale (LF) Do [...] Mo derate - Follow Up Plan required Preventative Health and Wellness follow-up Action Plans for Clinical Quality Measures: Breast Cancer Screening:: Not addressed during this visit. See notes for details. . Cervical Cancer Screening:: Not addressed during this visit. See notes for details. HIV Screening:: Not addressed during thi s visit. See notes for details. Examination Category Sub-Category Detail Notes Category Not [...]
--- OUTSIDE RECORDS SUMMARY | 2024-11-11 22:59 | XMS_ITS ---
Author Organization [facility] Address [address] [place] [address] Care Team Providers Care Labeling Machine Operator Name Role Phone Jed Roy Primary Care Provider Michael Brown Unavailable [phone] Allergies Allergen (clinical drug ingredient) Drug/Non Drug Allergy documented on EMR Reaction Allergy Type Onset Date Status Sulfacet-R Unknown Drug Allergy Active REASON FOR VISIT 2 Week Psych Med Check Medications Medication SIG (Take, Route, Frequency, Duration) Notes Start Date End Date Status Vyvanse 50 MG 1 capsule in the morning Orally Once a day. Please fill on or after July 10, 2024. for 30 days 05/04/2024 Active Vyvanse 50 MG 1 capsule in the morning Orally Once a day. Please fill on or after June 14, 2024. for 30 days 05/04/2024 Active Pilocarpine HCl 5 MG 1 tablet Orally Three times a day for 30 days Just sending in to have refills on file. 07/29/2024 Active Prazosin HCl 1 MG 1 capsule at bedtime Orally Once a day for 30 days As needed for nightmares Just sending in to have refills on file. 11/14/2023 Active Vyvanse 40 MG 1 capsule in the morning Orally Once a day for 30 days 07/29/2024 Active Methylphenidate HCl 20 MG 1.5 tablet on empty stomach Orally Twice a day. for 30 days Still waiting on PA for Vyvanse for binge eating indication. 02/19/2024 Active Thyroid 15 MG 1 tablet on an empty stomach Orally Once a day for 30 day(s) Active Gabapentin 400 MG 1 capsule as needed for anxiety Orally Three times a day for 30 days Just sending in to have refills on file. Active Venlafaxine HCl ER 150 MG 1 capsule with food Orally Once a day for 30 days Just sending in to have refills on file. Active Atorvastatin Calcium 10 MG 1 tablet Orally Once a day for 30 day(s) 06/07/2021 Active buPROPion HCl ER (XL) 150 MG 1 tablet in the morning Orally Once a day for 30 days Dose lowered to 150 mg. Active oxyBUTYnin Chloride 5 MG 1 tablet Orally Twice a day Active Zovirax 5 % 1 application every 3 hours Externally Six times a day for 7 days 05/19/2021 Active Social History Sex Assigned At : Social History Observation Description Sex Assigned At Female Encounters Encounter Location Date Provider Diagnosis [address] [address] 08/10/2024 Michael Brown Generalized anxiety disorder F41.1 ; ADHD (attention deficit hyperactivity disorder), combined type F90.2 ; Nightmares F51.5 ; Binge eating disorder, moderate F50.811 and Medication side effects T88.7XXA Assessments Encounter Date Diagnosis (ICD Code) Assessment Notes Treatment Notes Treatment Clinical Notes Section Notes 08/10/2024 Generalized anxiety disorder (ICD-10 - F41.1) [...] (ie Sjogren syndrome). Client verbalizes understanding. 08/10/2024 Nightmares (ICD-10 - F51.5) Concerning that [...] (ie Sjogren syndrome). Client verbalizes understanding. 08/10/2024 Binge eating disorder, moderate (ICD-10 - [...] (ie Sjogren syndrome). Client verbalizes understanding. 08/10/2024 Medication side effects (ICD-10 - T88.7XXA) [...] (ie Sjogren syndrome). Client verbalizes understanding. [place] [...] number to the 24-hour crisis line at [facility]. Questions addressed. Client verbalized understanding [...] disorder (ie Sjogren syndrome). Client verbalizes understanding. Plan Of Treatment Medication Medication Name Sig Start Date Stop Date Notes Pilocarpine HCl 5 MG 1 tablet Orally Three times a day for 30 days 07/29/2024 Just sending in to have refills on file. Prazosin HCl 1 MG 1 capsule at bedtime Orally Once a day for 30 days 11/14/2023 Just sending in to have refills on file. Vyvanse 40 MG 1 capsule in the morning Orally Once a day for 30 days 07/29/2024 Gabapentin 400 MG 1 capsule as needed for anxiety Orally Three times a day for 30 days Just sending in to have refills on file. Venlafaxine HCl ER 150 MG 1 capsule with food Orally Once a day for 30 days Just sending in to have refills on file. buPROPion HCl ER (XL) 150 MG 1 tablet in the morning Orally Once a day for 30 days Dose lowered to 150 mg. Treatment Notes Assessment Notes [place] [...] number to the 24-hour crisis line at [facility]. Questions addressed. Client verbalized understanding of all information and is agreeable to treatment plan. Next Appt Details Follow Up: 6 Weeks, Reason: Medication management - can be telehealth appt. Provider Name:Michael Norwood , 11/12/2024 08:40:00 AM, [address] [facility], [place], [address], Progress Notes * JACKSONWendyDOB: 1 (44 yo F)Acc No.[id number]:08/10/2024 Patient: Wendy PEREZ Provider: Mele Brown DNP, PMHNP-BC :1980 A ge:44 Y S ex:Female Date:08/10/2024 Address:[address] [place], [place] [id number] Pcp:Jed Roy Subjective: * Chief Complaints: * 2 Week Psych Med Check * HPI: D epression Screening: PHQ-9 L ittle interest or pleasure in doing things S everal days, F eeling down, depressed, or hopeless S everal days, T rouble falling or staying asleep, or sleeping too much S everal days, F eeling tired or having little energy S everal days, P oor appetite or overeating S everal days, F eeling bad about yourself or that you are a failure, or have let yourself or your family down S everal days, T rouble concentrating on things, such as reading the newspaper or watching television S everal days, M oving or speaking so slowly that other people could have noticed; or the opposite, being so fidgety or restless that you have been moving around a lot more than usual S everal days, T houghts that you would be better off or of hurting yourself in some way N ot at all, T otal Score 8 , I nterpretation M ild Depression. S creening: Dent Suicide Severity Rating Scale (LF) D o [...] or prepared to end your life? N o. C SSRS Interpretation and Follow Up Plan: CSSRS Interpretation and Follow Up Plan. CSSRS Interpretation and Follow Up Plan C SSRS Screen documented using SF Y es, M oderate or High risk requires selection of a follow up plan C SSRS No/Low: intervention not needed at this time. C onstitutional: Session conducted telephonically per client's permissions.? Client pleasant and conversational. The patient has been dealing with severe dry mouth for the past few months. Despite trying Pilocarpine to mitigate the dry mouth, it has had no effect. The patient also reported a raw feeling in her mouth, similar to the sensation after eating too much acidic fruit. In addition to the dry mouth, the patient has been experiencing palpitations. She is unsure if they are caused by anxiety or if the palpitations are causing her anxiety. The patient has been feeling very fatigued for the past year and a half, to the point where she cannot make it through the day without taking a nap. The patient has been on Synthroid for her thyroid issues, but she has not felt any different since starting the medication. She also reported having a rash a few months ago, which was treated with a steroid shot. The patient has been on Vyvanse and Wellbutrin, and she is considering going off these medications due to the dry mouth issue. She has also been on Ditropan for bladder issues, which she has cut in half due to the dry mouth issue. The patient has a family history of autoimmune issues, with her sister having psoriasis and Crohn's disease. The patient also reported a forearm injury that occurred in the gym, which has resulted in chronic pain and loss of muscle in her forearm. She is due for a bone scan but has not yet had it due to insurance issues. Her doctor told her its okay for her to stay on the Vyvanse for now. That a recent EKG take when she felt she was having palpitations showed minor abnormalities that could be caused by anxiety per client's report. Will try to get EKG sent over. She is currently on cholesterol medication. The patient also mentioned that she has recently started a new job at the [employer] and has been dealing with personal issues, including moving her grandmother into assisted living. The patient reported that she is not currently depressed and feels that her mood is good, but her anxiety levels are high. She is off probation by the nursing board and that this has been a relief. She feels her binge eating has gotten better on the Vyvanse though she has not lost weight. Anxiety: Fair to Poor Depression: Good to fair Sleep: fair to good Anger: Denies Appt: Fair Caffeine: none SI: none HI: none Hallucinations: none Cigg/Vap: Is vaping nicotine but not smoking ciggerettes. Drug/Alcohol: rarely ETOH Therapy: Counselor at [facility] Labs: 2020. Currently declines. 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 Jean in [place] SEAT BUILDER is Dr. Annie martinez in [place] Control : IUD Menstrual Periods: irregular This is a 42 year old female who lives her BF. * ROS: P sych ROS: Constitutional D enies. E yes D enies. E ars/Nose/Mouth/Throat D enies. R espiratory D enies. A llergic/Immunologic D enies.?Cardiovascular D enies. G I D enies. G U D enies. M usculoskeletal D enies. N eurological D enies. I ntegumentary D enies. E ndocrine R eports,?Hypothyroidism - treated,. H ematological/Lymphatic D enies. * PSYCH ROS2: Elevated mood symptoms D enies. m ood swings D enies. T houghts of self harm D enies. D enies H omicidal thoughts. A dmits A nxiety. D enies A uditory/visual hallucinations. D enies D elusions. D enies D epressed mood. D enies D ifficulty sleeping. A dmits E ating disorder, b smita eating. A dmits S tressors, h ealth,financial,work. D enies S ubstance abuse. D enies S uicidal thoughts. * Medical History: * Surgical History: D &C * Hospitalization/Major Diagno stic Procedure: [facility]. DecemberRU - Depression Summer 2020 * Family [...] mployment Status: U nemployed. * Medications: T akingVenlafaxine HCl ER 150 MG Capsule Extended Release 24 Hour 1 capsule with food Orally Once a day Prazosin HCl 1 MG Capsule 1 capsule at bedtime Orally Once a day As needed for nightmaresPilocarpine HCl 5 MG Tablet 1 tablet Orally Three times a day , Notes to Pharmacist: Client having severe dry mouth possibly from Vyvanse or ditropan.Vyvanse 40 MG Capsule 1 capsule in the morning Orally Once a day oxyBUTYnin Chloride 5 MG Tablet 1 tablet Orally Twice a day Zovirax 5 % Ointment 1 application every 3 hours Externally Six times a day Atorvastatin Calcium 10 MG Tablet 1 tablet Orally Once a day Thyroid 15 MG Tablet 1 tablet on an empty stomach Orally Once a day Methylphenidate HCl 20 MG Tablet 1.5 tablet on empty stomach Orally Twice a day. , Notes to Pharmacist: Still waiting on [place] for Vyvanse for binge eating indication.Vyvanse 50 MG Capsule 1 capsule in the morning Orally Once a day. Please fill on or after June 14, 2024. Vyvanse 50 MG Capsule 1 capsule in the morning Orally Once a day. Please fill on or after July 10, 2024. Gabapentin 400 MG Capsule 1 capsule as needed for anxiety Orally Three times a day buPROPion HCl ER (XL) 300 MG Tablet Extended Release 24 Hour 1 tablet in the morning Orally Once a day Taking Venlafaxine HCl ER 150 MG Capsule Extended Release 24 Hour 1 capsule with food Orally Once a day Taking Prazosin HCl 1 MG Capsule 1 capsule at bedtime Orally Once a day As needed for nightmaresTaking Pilocarpine HCl 5 MG Tablet 1 tablet Orally Three times a day , Notes to Pharmacist: Client having severe dry mouth possibly from Vyvanse or ditropan.Taking Vyvanse 40 MG Capsule 1 capsule in [...] empty stomach Orally Once a day Taking Methylphenidate HCl 20 MG Tablet 1.5 tablet on empty stomach Orally Twice a day. , Notes to Pharmacist: Still waiting on PA for Vyvanse for binge eating indication.Taking Vyvanse 50 MG Capsule 1 capsule in the morning Orally Once a day. Please fill on or after June 14, 2024. Taking Vyvanse 50 MG Capsule 1 capsule in the morning Orally Once a day. Please fill on or after July 10, 2024. Taking Gabapentin 400 MG Capsule 1 capsule as needed for anxiety Orally Three times a day Taking buPROPion HCl ER (XL) 300 MG Tablet Extended Release 24 Hour 1 tablet in the morning Orally Once a day * Allergies: S itz-Rno[Allergies Verified] Objective: * Vitals: * Examination: G eneral Examination: PSYCH: s peech clear, no auditory or visual hallucinations, thought content without suicidal ideation or delusions, alert, oriented x4, cooperative with exam, anxious, fund of knowledge fair, judgement and insight fair . Assessment: * Assessment: 1. G eneralized anxiety disorder - F41.1 2 . A DHD (attention deficit hyperactivity disorder), combined type - F90.2 (Primary) 3 . N ightmares - F51.5 4 . B smita eating disorder, moderate - F50.811 5 . M edication side effects - T88.7XXA Concerning that despite rece nt addition of pilocarpine client has had no [...] disorder (ie Sjogren syndrome). Client verbalizes understanding. Plan: * Treatment: 2. G eneralized anxiety disorder Refill Venlafaxine HCl ER Capsule Extended Release 24 Hour, 150 MG, 1 capsule with food, Orally, Once a day, 30 days, 30, Refills 1, Notes to Pharmacist: Just sending in to have refills on file.; Refill Gabapentin Capsule, 400 MG, 1 capsule as needed for anxiety, Orally, Three times a day, 30 days, 90 Capsule, Refills 1, Notes to Pharmacist: Just sending in to have refills on file.. ? 3. N ightmares Refill Prazosin HCl Capsule, 1 MG, 1 capsule at bedtime, Orally, Once a day As needed for nightmares, 30 days, 30, Refills 1, Notes to Pharmacist: Just sending in to have refills on file.. 4. B smita eating disorder, moderate Refill Vyvanse Capsule, 40 MG, 1 capsule in the morning, Orally, Once a day, 30 days, 30 Capsule, Refills 0. 5. M edication side effects Refill Pilocarpine HCl Tablet, 5 MG, 1 tablet, Orally, Three times a day, 30 days, 90 Tablet, Refills 0, Notes to Pharmacist: Just sending in to have refills on file.. 6. [place] number to the 24-hour crisis line at [facility]. Questions addressed. Client verbalized understanding of all information and is agreeable to treatment plan. * Recommended Wellness and Pre vention Guidelines: * S tatus A lert L ast Done N ext Due A ction Taken N ONCOMPLIANT B reast cancer screening - 1 10/10/2023 - N ONCOMPLIANT C ervical cancer screening - 1 10/10/2023 - N ONCOMPLIANT H IV screening - 1 10/10/2023 - * Procedure Codes: * Follow Up: 6 Weeks (Reason: Medication management - can be telehealth appt.) * * PLANER Sign off status: Completed true * Provider: Mele Brown DNP, PMP- Date: 1 10/10/2023 Generated for No faye/Guzman/eTransmitting on: 0 11/11/2024 10:59 PM WOOD PLANER History and Physical Notes * HPI (History of Present Illness) Category Sub-Category Detail Notes Category Not es Depression Screening PHQ-9 Little inte rest or pleasure in doing things: Several days Feeling down, depressed, or hopeless: Se veral days Trouble falling or staying asleep, or sl eeping too much: Several days Feeling tired or having little energy: S everal days Poor appetite or overeating: Several day s Feeling bad about yourself o r that you are a failure, or have let yourself or your family down: Several days Trouble concentrating on thi ngs, such as reading the newspaper or watching television: Several days Moving or speaking so slowly that other people could have noticed; or the opposite, being so fidgety or restless that you have been moving around a lot more than usual: Several days Thoughts that you would be b yaneth off or of hurting yourself in some way: Not at all Total Score: 8 Interpretation: Mild Depression Screening Dent Suicide Sev erity Rating Scale (LF) Do [...] or prepared to end your life?: No Do Not Use CSSRS Interpretation and Follow Up Plan CSSRS Interpretation and Follow Up Plan CSSRS Screen documented using SF: Yes Moderate or High risk requir es selection of a follow up plan: CSSRS No/Low: intervention not needed at this time Examination Category Sub-Category Detail Notes Category Not es General Examination PSYCH: speech clear , no auditory or visual hallucinations, thought content without suicidal ideation or delusions, alert, oriented x4, cooperative with exam, anxious, fund of knowledge fair, judgement and insight fair
--- OUTSIDE RECORDS SUMMARY | 2024-11-11 22:59 | XMS_ITS | Clinical Summary ---
Author Organization [facility] Address [address] [place] [address] Care Team Providers Care Allergy And Immunology Specialist Name Role Phone India Durham MD Primary Care Provider [phone] Allergies Active Allergy Reactions Criticality Noted Date Comments Sulfa Antibiotics Hives,Itching,Rash,Unknown High Medications venlafaxine (EFFEXOR) 100 MG tablet Take 1.5 tablets (150 mg total) by mouth daily. Active buPROPion XL (WELLBUTRIN XL) 150 MG 24 hr tablet Take 1 tablet (150 mg total) by mouth every morning. Active propranolol LA (INDERAL LA) 60 MG 24 hr capsule Take 1 capsule (60 mg total) by mouth daily. 4 Active oxybutynin (DITROPAN) 5 MG tablet Take 1 tablet (5 mg total) by mouth 2 (two) times daily. Active atorvastatin (LIPITOR) 20 MG tablet Take 1 tablet (20 mg total) by mouth nightly at bedtime. Active gabapentin (NEURONTIN) 400 MG capsule Take 1 capsule (400 mg total) by mouth as needed. Active diclofenac EC (VOLTAREN) 50 MG tablet Take 1 tablet (50 mg total) by mouth. 5 Active predniSONE (DELTASONE) 20 MG tabletIndicati ons:Acute non-recurrent frontal sinusitis Take 2 tablets every morning for 5 days 10 tablet 5 Active fluconazole (DIFLUCAN) 150 MG tabletIndicati ons:Vaginal yeast infection Take one tablet every other day for 3 doses 3 tablet 5 Active diphenhydrAMIN E HCl (BENADRYL ALLERGY OR) Take by mouth every evening. 025 Discontinued lisdexamfetami ne (VYVANSE) 40 MG capsule Take 1 capsule (40 mg total) by mouth every morning. 025 Discontinued lidocaine (LIDODERM) 5 % Place 1 patch onto the skin daily for 30 days. Remove & Discard patch within 12 hours or as directed by MD 30 patch 4 025 amoxicillin-cl avulanate (AUGMENTIN) 875-125 MG tabletIndicati ons:Acute non-recurrent frontal sinusitis Take 1 tablet (875 mg total) by mouth 2 (two) times daily for 10 days. 20 tablet 5 025 Hospital, Clinic, or Other Facility Administered Medication Ordered Dose Route Frequency Start Date End Date Status ketorolac (TORADOL) injection 60 mgIndications:Acute non-recurrent frontal sinusitis 60 mg IM Once 10/30/2024 10/30/2024 Ended Active Problems Problem Noted Date Diagnosed Date Attention deficit hyperactivity disorder (ADHD) 11/24/2022 Bipolar 1 disorder ([facility]) 11/24/2022 Depression 11/24/2022 Opioid dependence in remission ([facility]) 11/24/2022 Fatigue 11/17/2019 Abnormal uterine bleeding 07/31/2019 Anemia 07/31/2019 BV (bacterial vaginosis) 07/31/2019 Atypical squamous cell olivarez es of cervix undetermined significance favor benign 02/16/2011 Overview (11/24/2022): Note: +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 Generalized anxiety disorder 02/08/2011 Overview (11/24/2022): Date Onset: 21 years old Irritable bowel syndrome 02/08/2011 Overview (11/24/2022): Date Onset: 21 years old Encounters Date Type Department Care Team Description 11/03/2024 Telephone [facility] Family & Internal Medicine [address] [phone] None, Provider, Question 10/30/2024 3:40 PM SHEET METAL ASSEMBLER Office Visit [facility] Family & Internal Medicine [address] [phone] Luis Alfredo Dubon PA Headache (Headache - sinus infection + migraine cough that started 2 days ago) 10/30/2024 Travel 09/25/2024 9:09 PM SHEET METAL ASSEMBLER - 09/25/2024 10:08 PM SHEET METAL ASSEMBLER Emergency [facility] Emergency Room [id number] [place] [id number] Coccyx Pain Discharge Disposition: Left Against Medical Advice 09/14/2024 5:19 PM SHEET METAL ASSEMBLER - 09/14/2024 7:43 PM SHEET METAL ASSEMBLER Emergency [facility] Emergency Room [address] [place] [phone] Rakel Nair MD Back Pain Discharge Disposition: Home or Self Care (Routine Discharge) 09/14/2024 Travel 08/28/2024 7:30 AM SHEET METAL ASSEMBLER - 08/28/2024 11:59 PM SHEET METAL ASSEMBLER Hospital Encounter [facility] Nuclear Medicine [address] [place] [phone] India Durham MD Discharge Disposition: Home or Self Care (Routine Discharge) 08/28/2024 Travel 08/21/2024 2:00 PM SHEET METAL ASSEMBLER - 08/21/2024 11:59 PM SHEET METAL ASSEMBLER Hospital Encounter [facility] Ultrasound [address] [place] [phone] India Durham MD Discharge Disposition: Home or Self Care (Routine Discharge) 08/21/2024 Travel 08/11/2024 3:00 PM SHEET METAL ASSEMBLER - 08/11/2024 11:59 PM SHEET METAL ASSEMBLER Hospital Encounter [facility] [address] [place] [phone] India Durham MD Discharge Disposition: Home or Self Care (Routine Discharge) 08/11/2024 Orders Only [facility] [address] [place] [phone] India Durham MD 08/11/2024 Travel from Last 3 Months Family History Medical History Relation Comments Breast Cancer Paternal Aunt Breast Cancer Paternal Grandmother Relation Status Comments Paternal Aunt Alive Paternal Grandmother Social History Tobacco Use Types Packs/Day Years Used Date Smoking Tobacco: Former Cigarettes Smokeless Tobacco: Never Comments:Vapes now PHQ-2 Answer Date Recorded Patient Health Questionnaire-2 Score 0 11/24/2022 Comments Unknown Sex and Gender Information Value Date Recorded Sex Assigned at Not on file Legal Sex Female 8:00 PM CDT Gender Identity Not on file Sexual Orientation Not on file Last Filed Vital Signs Vital Sign Reading Time Taken Comments Blood Pressure 106/73 10/30/2024 3:31 PM SHEET METAL ASSEMBLER Pulse 98 10/30/2024 3:31 PM SHEET METAL ASSEMBLER Temperature 36.8 C (98.3 F) 10/30/2024 3:31 PM SHEET METAL ASSEMBLER Respiratory Rate 18 10/30/2024 3:31 PM SHEET METAL ASSEMBLER Oxygen Saturation 98% 10/30/2024 3:31 PM SHEET METAL ASSEMBLER Inhaled Oxygen Concentration - - Weight 82.6 kg (182 lb) 10/30/2024 3:31 PM SHEET METAL ASSEMBLER Height 170.2 cm (5' 7 ) 10/30/2024 3:31 PM SHEET METAL ASSEMBLER Body Mass Index 28.51 10/30/2024 3:31 PM SHEET METAL ASSEMBLER Plan of Treatment Health Maintenance Due Date Last Done Comments Annual Physical 1984 Hepatitis C 1999 Hepatitis B Vaccines (1 of 3 - 19+ 3-dose series) 2000 COVID-19 Vaccine ( - season) 2024 10/12/2021 Influenza Adult (#1) 2024 09/13/2021 PHQ-2 (Physician [place]) 09/30/2024 11/24/2022 DTaP, Tdap and Td Vaccines (7 - Td or Tdap) 11/03/2025 11/03/2015, 03/02/2008, 07/13/1987, Additional history exists Mammogram Screening 04/09/2026 04/09/2024, 10/29/2022, 09/15/2020, Additional history exists Cervical Cancer Screening Pap Smear (Age 30 to 64) Every 3 Years 11/26/2026 11/26/2023 Cervical Cancer Screening Pap with HPV Testing (Age 30 to 64) Every 5 Years 11/26/2028 11/26/2023 Cervical Cancer Screening with HPV 11/26/2028 HPV Vaccines Completed 09/16/2008, 01/2008, 03/02/2008 Pneumococcal Vaccine: Pediatrics (0 to 5 Years) and At-Risk Patients (6 to 64 Years) Aged Out 11/03/2015 No longer eligible based on patient's age to complete this topic Meningococcal B Vaccine Aged Out No l onger eligible based on patient's age to complete this topic Meningococcal Vaccine Aged Out No guillermina brittney eligible based on patient's age to complete this topic RSV Immunizations Under 20 Months Aged Out No longer eligible based on patient's age to complete this topic Procedures Procedure Name Priority Date/Time Associated Diagnosis Comments CORONAVIRUS (COVID-19) INFLUENZA A & B ANTIGEN IA PANEL Routine 10/30/2024 Suspected COVID-[address] LUMB SPINE WO CON STAT 09/14/2024 6:52 PM SHEET METAL ASSEMBLER TEST URINE STAT 09/14/2024 6:29 PM SHEET METAL ASSEMBLER URINALYSIS, AUTO, COMPLETE STAT 09/14/2024 6:29 PM SHEET METAL ASSEMBLER CBC W/DIFF AUTOMATED STAT 09/14/2024 6:21 PM SHEET METAL ASSEMBLER SED RATE, ERYTHROCYTE (ESR) STAT 09/14/2024 6:21 PM SHEET METAL ASSEMBLER NM BONE SCAN 3 PHASE Routine 08/28/2024 11:30 AM SHEET METAL ASSEMBLER Right elbow pain USE ECHOCARDIOGRAM W CON Routine 08/21/2024 3:17 PM SHEET METAL ASSEMBLER Abnormal EKG ENA2 (SSA & SSB) Routine 08/11/2024 3:18 PM SHEET METAL ASSEMBLER Anemia, unspecified Myxedema heart disease Essential hypertension, malignant Senile arthritis Sjogren's disease ([facility]/HCC [facility]/HCC) RHEUMATOID FACTOR, QUANT Routine 08/11/2024 3:18 PM SHEET METAL ASSEMBLER Anemia, unspecified Myxedema heart disease Essential hypertension, malignant Senile arthritis ANTINUCLEAR ANTIBODY WI RFX Routine 08/11/2024 3:18 PM SHEET METAL ASSEMBLER Anemia, unspecified Myxedema heart disease Essential hypertension, malignant Senile arthritis C-REACTIVE PROTEIN Routine 08/11/2024 3: 18 PM SHEET METAL ASSEMBLER Anemia, unspecified Myxedema heart disease Essential hypertension, malignant Senile arthritis COMPREHENSIVE METABOLIC PANEL Routine 08/11/2024 3:18 PM SHEET METAL ASSEMBLER Anemia, unspecified Myxedema heart disease Essential hypertension, malignant Senile arthritis THYROID STIM HORMONE TSH Routine 08/11/2024 3:18 PM SHEET METAL ASSEMBLER Anemia, unspecified Myxedema heart disease Essential hypertension, malignant Senile arthritis CBC, AUTO, NO DIFF Routine 08/11/2024 3: 18 PM SHEET METAL ASSEMBLER Anemia, unspecified Myxedema heart disease Essential hypertension, malignant Senile arthritis MG SCREENING W NARESH SALLY DIGI Routine 04/09/2024 1:45 PM CDT Encounter for screening mammogram for malignant neoplasm of breast HUMAN PAPILLOMAVIRUS, HIGH-RISK TYPES Routine 11/26/2023 12:00 PM SHEET METAL ASSEMBLER CYTOPATH CERV/VAG THIN LAYER Routine 11/26/2023 12:00 AM SHEET METAL ASSEMBLER Routine cervical smear from Last 3 Months or Most Recently Relevant to Health Maintenance Results * CORONAVIRUS (COVID-19) INFLUENZA A & B ANTIGEN IA PANEL (10/30/2024) CORONAVIRUS ANTIGEN IA NEGATIVE NEGATIVE [id number], [place] INFLUENZA A NEGATIVE NEGATIVE MG-[id number], [place] INFLUENZA B NEGATIVE NEGATIVE MG-[id number], [place] Internal Control: VALID VALID MG-[id number], [place] NASAL STRUCTURE / Unknown 10/30/2024 us Luis Alfredo FERRARO MICROBIOLOGY - GENERAL ORDERAB LES Final Result -[id number], [place] [address] [place] [address], * CT LUMB SPINE WO CON (09/14/2024 6:52 PM SHEET METAL ASSEMBLER) Anatomical Region Laterality Modality Spine Computed Tomogra phy 09/14/2024 6:56 PM SHEET METAL ASSEMBLER Impressions 09/14/2024 7:09 PM SHEET METAL ASSEMBLER IMPRESSION: 1. Acute displaced fracture of the Co1 coccygeal vertebral body as well as acute minimally displaced fracture of the Co2 coccygeal vertebral body. 2. Associated presacral and precoccygeal soft tissue stranding. 3. No acute findings in the lumbar spine. Referred By: Interpreted By: Mendel Murillo MD, 09/14/2024 6:56 PM Narrative 09/14/2024 7:09 PM SHEET METAL ASSEMBLER [facility] [address] [place] [address] Examination: CT lumbar spine without contrast Exam Date/Time: 09/14/2024 6:39 PM Reason For Exam: fall, back pain , coccyx pain Comparison: CT abdomen pelvis 03/01/2015 Technique: Axial CT scan of the lumbar spine was obtained without the use of IV contrast agent. Subsequent coronal and sagittal reformatted sequences are created for evaluation. A dose lowering technique was used for this procedure, which may include, but is not limited to, dose reduction technique, automated exposure control, iterative reconstruction, ALARA (As Low As Reasonably Achievable), or Image Gently techniques. Findings: Acute displaced fracture of Co1 coccygeal vertebral body. Acute minimally displaced fracture of the Co2 coccygeal vertebral body. Lumbar vertebral body heights and alignment are preserved. No traumatic subluxation. No destructive osseous lytic or sclerotic lesions. Presacral and precoccygeal soft tissue stranding. Intrauterine device in place. 3.2 cm right adnexal cyst for which no further follow-up is recommended. Procedure Note Mendel Murillo MD - 09/14/2024 [facility] [address] [place] [address] Examination: CT lumbar spine without contrast Exam Date/Time: 09/14/2024 6:39 PM Reason For Exam: fall, back pain , coccyx pain Comparison: CT abdomen pelvis 03/01/2015 Technique: Axial CT scan of the lumbar spine was obtained without the useof IV contrast agent. Subsequent coronal and sagittal reformattedsequences are created for evaluation. A dose lowering technique was usedfor this procedure, which may include, but is not limited to, dosereduction technique, automated exposure control, iterative reconstruction,ALARA (As Low As Reasonably Achievable), or Image Gently techniques. Findings: Acute displaced fracture of Co1 coccygeal vertebral body. Acute minimallydisplaced fracture of the Co2 coccygeal vertebral body. Lumbar vertebral body heights and alignment are preserved. No traumaticsubluxation. No destructive osseous lytic or sclerotic lesions. Presacraland precoccygeal soft tissue stranding. Intrauterine device in place. 3.2 cm right adnexal cyst for which nofurther follow-up is recommended. IMPRESSION: 1. Acute displaced fracture of the Co1 coccygeal vertebral body as wellas acute minimally displaced fracture of the Co2 coccygeal vertebralbody. 2. Associated presacral and precoccygeal soft tissue stranding. 3. No acute findings in the lumbar spine. Referred By: Interpreted By: Mendel Murillo MD, 09/14/2024 6:[address] Nair MD CT Final Result * TEST URINE (09/14/2024 6:29 PM SHEET METAL ASSEMBLER) URINE HCG TEST NEGATIVE NEGATIVE 09/14/2024 6:38 PM SHEET METAL ASSEMBLER [facility] Comment: VERY DILUTE URINE SPECIMENS MAY NOT CONTAIN VETERINARY PHYSIOLOGIST LEVELS OF HCG. IF IS STILL SUSPECTED, A SERUM HCG TEST IS RECOMMENDED. URINE SPECIMEN FROM URETHRA / Unknown 09/14/2024 6:29 PM SHEET METAL ASSEMBLER Rakel Nair MD URINE ORDERABLES Final Resul t [facility] [address] [place] [address], [place] [phone] * URINALYSIS, AUTO, COMPLETE (09/14/2024 6:29 PM SHEET METAL ASSEMBLER) COLOR (U) YELLOW 09/14/2024 6:45 PM SHEET METAL ASSEMBLER [facility] TRANSPARENCY CLEAR 09/14/2024 6:45 PM SHEET METAL ASSEMBLER [facility] SPECIFIC GRAVITY (U) <1.005 1.000 - 1.030 09/14/2024 6:45 PM [facility] U PH 6.0 5.0 - 9.0 09/14/2024 6:45 PM [facility] LEUKOCYTES (U) NEGATIVE NEGATIVE 09/14/2024 6:45 PM [facility] NITRITES NEGATIVE NEGATIVE 09/14/2024 6:45 PM [facility] PROTEIN RANDOM (U) NEGATIVE NEGATIVE 09/14/2024 6:45 PM [facility] GLUCOSE (U) NEGATIVE NEGATIVE 09/14/2024 6:45 PM [facility] KETONES MG/DL (U) NEGATIVE NEGATIVE 09/14/2024 6:45 PM [facility] BILIRUBIN (U) NEGATIVE NEGATIVE 09/14/2024 6:45 PM [facility] BLOOD (U) NEGATIVE NEGATIVE 09/14/2024 6:45 PM [facility] WBC/HPF 0-5 0 - 5 /HPF 09/14/2024 6:45 PM [facility] RBC/HPF 0-5 0 - 5 /HPF 09/14/2024 6:45 PM [facility] EPI/HPF MODERATE /HPF 09/14/2024 6:45 PM [facility] BACTERIA (U) FEW /HPF 09/14/2024 6:45 PM SHEET METAL ASSEMBLER [facility] URINE SPECIMEN OBTAINED BY CLEAN CATCH PROCEDURE / Unknown 09/14/2024 6:29 PM SHEET METAL ASSEMBLER Rakel Nair MD URINE ORDERABLES Final Resul t Performing Organization Address City/[facility]/ZIP Co de Phone Number [facility] [address] [place] [address], [place] [phone] * SED RATE, ERYTHROCYTE (ESR) (09/14/2024 6:21 PM SHEET METAL ASSEMBLER) ESR 13 0 - 20 MM/HR 09/14/2024 6:34 PM SHEET METAL ASSEMBLER [facility] 09/14/2024 6:21 PM SHEET METAL ASSEMBLER Rakel Nair MD LABORATORY Final Result Performing Organization Address [facility]/ZIP Co de Phone Number [facility] [address] [place] [address], [place] [phone] * (ABNORMAL) CBC W/DIFF AUTOMATED (09/14/2024 6:21 PM SHEET METAL ASSEMBLER) WBC 10.60 4.4 - 11.0 x10'3/uL 09/14/2024 6:27 PM [facility] RBC 5.15(H) 4.50 - 5.10 x10'6/uL 09/14/2024 6:27 PM [facility] HGB 16.0(H) 12.3 - 15.3 G/DL 09/14/2024 6:27 PM [facility] HCT 47.8(H) 35.9 - 44.6 % 09/14/2024 6:27 PM [facility] MCV 92.8 80.0 - 96.0 FL 09/14/2024 6:27 PM [facility] MCH 31.1(H) 25.3 - 30.9 PG 09/14/2024 6:27 PM [facility] MCHC 33.5 31.0 - 34.1 G/DL 09/14/2024 6:27 PM [facility] RDW 12.8 12.4 - 15.1 % 09/14/2024 6:27 PM [facility] PLT 358(H) 151 - 353 x10'3/uL 09/14/2024 6:27 PM [facility] MPV 9.8 9.6 - 12.0 FL 09/14/2024 6:27 PM [facility] RBC MORPHOLOGY NORMAL 09/14/2024 6:27 PM [facility] PLT MORPH. NORMAL 09/14/2024 6:27 PM [facility] WBC MORPHOLOGY NORMAL 09/14/2024 6:27 PM [facility] LYMPHOCYTES % 34.2 15.8 - 45.0 % 09/14/2024 6:27 PM [facility] NEUTROPHILS % 55.2 42.1 - 71.9 % 09/14/2024 6:27 PM [facility] MONOCYTES % 5.8 5.7 - 12.5 % 09/14/2024 6:27 PM [facility] EOSINOPHILS 3.6 0.0 - 5.6 % 09/14/2024 6:27 PM [facility] BASOPHILS 0.8 0.0 - 1.3 % 09/14/2024 6:27 PM [facility] ABS. NEUTROPHILS 5.86 1.40 - 6.00 x10'3/uL 09/14/2024 6:27 PM SHEET METAL ASSEMBLER [facility] IMMATURE GRANS % 0.4 0.0 - 0.5 % 09/14/2024 6:27 PM SHEET METAL ASSEMBLER [facility] ABS. LYMPHOCYTES 3.62 0.80 - 4.70 x10'3/uL 09/14/2024 6:27 PM SHEET METAL ASSEMBLER [facility] 09/14/2024 6:21 PM SHEET METAL ASSEMBLER us Rakel Nair MD LABORATORY Final Result [facility] [address] [place] [address], [place] [phone] * NM BONE SCAN 3 PHASE (08/28/2024 11:30 AM SHEET METAL ASSEMBLER) Anatomical Region Laterality Modality Bone Nuclear Medicine 08/28/2024 11:4 9 AM SHEET METAL ASSEMBLER Impressions 08/28/2024 11:52 AM SHEET METAL ASSEMBLER IMPRESSION: 1. No 3-phase positive uptake at the right elbow to suggest occult healing fracture or infection. 2. Mildly increased osseous uptake at the right elbow is nonspecific and could be degenerative. Ordered By: INDIA DURHAM Interpreted By: Wendy Ortiz MD, 08/28/2024 11:49 AM Narrative 08/28/2024 11:52 AM SHEET METAL ASSEMBLER [facility] [address] [place] [address] EXAMINATION: BONE SCINTIGRAPHY (THREE-PHASE) DATE OF STUDY: 08/28/2024 RADIOPHARMACEUTICAL: 24.1 mCi Tc-99m MDP i.v. HISTORY: Right elbow pain for 6 months. No known injury. FINDINGS: A three-phase examination of the right elbow was performed consisting of radionuclide angiography and immediate post-injection images of the right elbow,and delayed images of the right elbow. Prior nuclear medicine studies used for comparison: none. Other radiographic comparisons: X-ray right elbow 04/21/2024 No abnormalities are demonstrated radiographic or blood pool phase imaging. Mildly increased uptake on osseous phase imaging at the right elbow is nonspecific and may be degenerative. Procedure Note Wendy Ortiz MD - 08/28/2024 [facility] [address] [place] [address] EXAMINATION: BONE SCINTIGRAPHY (THREE-PHASE) DATE OF STUDY: 08/28/2024 RADIOPHARMACEUTICAL: 24.1 mCi Tc-99m MDP i.v. HISTORY: Right elbow pain for 6 months. No known injury. FINDINGS: A three-phase examination of the right elbow was performedconsisting of radionuclide angiography and immediate post-injectionimages of the right elbow,and delayed images of the right elbow. Prior nuclear medicine studies used for comparison: none. Other radiographic comparisons: X-ray right elbow 04/21/2024 No abnormalities are demonstrated radiographic or blood pool phaseimaging. Mildly increased uptake on osseous phase imaging at the right elbow isnonspecific and may be degenerative. IMPRESSION: 1. No 3-phase positive uptake at the right elbow to suggest occult healingfracture or infection. 2. Mildly increased osseous uptake at the right elbow is nonspecific andcould be degenerative. Ordered By: INDIA DURHAM Interpreted By: Wendy Ortiz MD, 08/28/2024 11:49 AM us India Durham MD NUC MED Final Result * USE ECHOCARDIOGRAM W CON (08/21/2024 3:17 PM SHEET METAL ASSEMBLER) Anatomical Region Laterality Modality NA Ultrasound 08/21/2024 2:13 PM SHEET METAL ASSEMBLER Narrative 08/25/2024 12:35 PM SHEET METAL ASSEMBLER JERRI Swanson.Name: Narcisa PazID: [id number] .Date: 08/21/2024 Refer.MD: Shaquille, [facility] Radiology Exam Time: 2:13:00 PM Study Type:SHAQUILLE Height: 67 in Weight: 195 lb BSA: 2 m2 Age: 8 1980,44Y Sex: F Sonogrphr: Lw Pat. Stat.:Outpatient Reason for Study:Abnormal ECG Procedures: Study performed at [place], [place] and interpreted by [facility]. 2D, M-mode, Doppler, Color Flow ++++++++++++++++++++++++++++++++++++ SUMMARY: ++++++++++++++++++++++++++++++++++++ Left ventricle is normal in size and systolic function Estimated EF of 55-60% Right ventricle is normal in size and systolic function No significant valve dysfunction. Unable to estimate pulmonary pressures. ++++++++++++++++++++++++++++++++++++ FINDINGS: ++++++++++++++++++++++++++++++++++++ LV: The left ventricular size is normal. The left ventricular systolic function is normal. Estimated left ventricular ejection fraction is 55-60%. Left ventricular diastolic function is abnormal (grade 1 - impaired relaxation). WM: Wall motion appears normal in all segments. RV: The right ventricle size is normal. The right ventricular function is normal. LA: Left atrial size is normal. RA: The right atrial size is normal. CAMRYN: No evidence of pericardial effusion. AO: Aorta is normal. PA: Unable to reliably quantitate pulmonary systolic pressure. SVn: Inferior vena cava is not assessable. AV: No clear spectral or echocardiographic evidence of aortic valve stenosis. The aortic valve not well visualized. MV: The mitral valve is structurally normal. There is trace mitral regurgitation. PV: Pulmonic valve not well visualized. TV: The tricuspid valve is not well visualized. <Electronic Signature> 08/25/2024 12:35 PM Abebe Gurrola M.D. Procedure Note Abebe Gurrola MD - 08/25/2024 JERRI CORBIN Pat.Name: Narcisa Paz Kiki.ID: [id number] .Date: 08/21/2024 Refer.MD: Shaquille, [facility] Radiology Exam Time: 2:13:00 PM Study Type:OUTREACH Height: 67 in Weight: 195 lb BSA: 2 m2 Age: 8 1980,44Y Sex: F Sonogrphr: Lw Pat. Stat.:Outpatient Reason for Study:Abnormal ECG Procedures: Study performed at [place], [place] and interpreted by [facility]. 2D, M-mode, Doppler, Color Flow ++++++++++++++++++++++++++++++++++++ SUMMARY: ++++++++++++++++++++++++++++++++++++ Left ventricle is normal in size and systolic function Estimated EF of 55-60% Right ventricle is normal in size and systolic function No significant valve dysfunction. Unable to estimate pulmonary pressures. ++++++++++++++++++++++++++++++++++++ FINDINGS: ++++++++++++++++++++++++++++++++++++ LV: The left ventricular size is normal. The left ventricular systolic function is normal. Estimated left ventricular ejection fraction is 55-60%. Left ventricular diastolic function is abnormal (grade 1 - impaired relaxation). WM: Wall motion appears normal in all segments. RV: The right ventricle size is normal. The right ventricular function is normal. LA: Left atrial size is normal. RA: The right atrial size is normal. CAMRYN: No evidence of pericardial effusion. AO: Aorta is normal. PA: Unable to reliably quantitate pulmonary systolic pressure. SVn: Inferior vena cava is not assessable. AV: No clear spectral or echocardiographic evidence of aortic valve stenosis. The aortic valve not well visualized. MV: The mitral valve is structurally normal. There is trace mitral regurgitation. PV: Pulmonic valve not well visualized. TV: The tricuspid valve is not well visualized. <Electronic Signature> 08/25/2024 12:35 PM Abebe Gurrola M.D. us India Durham MD ECHO Final Result * ANTINUCLEAR ANTIBODY WI RFX (SURESH) (08/11/2024 3:18 PM SHEET METAL ASSEMBLER) SURESH 0.3 08/12/2024 2:35 PM SHEET METAL ASSEMBLER [facility] Comment: NEGATIVE: <0.7 RATIO SURESH PROFILE AND TITER NOT PERFORMED THE SURESH SCREEN TESTS FOR THE FOLLOWING ANTIBODIES BY EIA: SSA1 (RO), SSB1 (LA), NAIR, SCL70, JO1, CENTROMERE, YARN SIZER HISTONE MUST BE ORDERED SEPARATELY DNA (DS) ANTIBODY 0.9 IU/ML 024 2:35 PM SHEET METAL ASSEMBLER [facility] Comment: NEGATIVE: <10 IU/mL EQUIVOCAL: 10 to 15 IU/mL POSITIVE: >15 IU/mL THIS QUANTITATIVE ASSAY IS CALIBRATED TO THE [employer]'S WO/80 STANDARD. THE LEVEL OF dsDNA AUTOANTIBODY GERERALLY CORRELATES WITH THE LEVEL OF DISEASE ACTIVITY IN SYSTEMIC LUPUS ERYTHMATOSUS 08/11/2024 3:18 PM SHEET METAL ASSEMBLER India Durham MD LABORATORY Final Result [facility] [address] [place] [address], [place] [phone] * RHEUMATOID FACTOR, QUANT (08/11/2024 3:18 PM SHEET METAL ASSEMBLER) RHEUMATOID FACTOR <10 <15 IU/ML 08/11/2024 8:27 PM SHEET METAL ASSEMBLER [facility] 08/11/2024 3:18 PM SHEET METAL ASSEMBLER nIdia Durham MD LABORATORY Final Result [facility] [address] [place] [address], [place] [phone] * ENA2 (SSA & SSB) (08/11/2024 3:18 PM SHEET METAL ASSEMBLER) SSA ANTIBODY <1.0 08/13/2024 7:31 PM SHEET METAL ASSEMBLER [facility] Comment: Reference Range: < 1.0 NEG AI SSB ANTIBODY <1.0 08/13/2024 7:31 PM SHEET METAL ASSEMBLER [facility] Comment: Reference Range: < 1.0 NEG AI Test Performed by [employer], [facility], [address] [place] [address] Eduardo Burrell M.D., Ph.D., Director of Laboratories , [place] [id number] 08/11/2024 3:18 PM SHEET METAL ASSEMBLER India Durham MD LABORATORY Final Result [facility] [address] , * (ABNORMAL) COMPREHENSIVE METABOLIC PANEL (08/11/2024 3:18 PM SHEET METAL ASSEMBLER) GLUCOSE 98 70 - 99 MG/DL 08/11/2024 3:57 PM SHEET METAL ASSEMBLER [facility] BUN 9 7 - 18 MG/DL 08/11/2024 3:57 PM [facility] CREATININE S/P/B 1.07(H) 0.55 - 1.02 MG/DL 08/11/2024 3:57 PM [facility] SODIUM S/P/B 140 136 - 145 MMOL/L 08/11/2024 3:57 PM SHEET METAL ASSEMBLER [facility] POTASSIUM S/P/B 3.4(L) 3.5 - 5.1 MMOL/L 08/11/2024 3:57 PM [facility] CHLORIDE S/P/B 103 100 - 108 MMOL/L 08/11/2024 3:57 PM SHEET METAL ASSEMBLER [facility] CO2 27.0 21 - 32 MMOL/L 08/11/2024 3:57 PM [facility] CALCIUM S/P/B 8.9 8.5 - 10.1 MG/DL 08/11/2024 3:57 PM [facility] BILIRUBIN TOTAL S/P/B 0.3 0.2 - 1.2 MG/DL 08/11/2024 3:57 PM [facility] TOTAL PROTEIN S/P/B 8.0 6.4 - 8.2 G/DL 08/11/2024 3:57 PM [facility] ALBUMIN S/P/B 4.4 3.4 - 5.0 G/DL 08/11/2024 3:57 PM [facility] AST 27 15 - 37 U/L 08/11/2024 3:57 PM [facility] ALT 56(H) 14 - 55 U/L 08/11/2024 3:57 PM [facility] ALKALINE PHOSPHATASE S/P/B 85 50 - 136 U/L 08/11/2024 3:57 PM [facility] ANION GAP 10.0 5 - 15 MMOL/L 08/11/2024 3:57 PM [facility] BUN CREATININE RATIO 8.4 6 - 26 08/11/2024 3:57 PM [facility] A/G RATIO 1.2 1.0 - 2.0 RATIO 08/11/2024 3:57 PM [facility] GFR ESTIMATE 66(L) >90 ML/MIN/1.7 3 M2 08/11/2024 3:57 PM [facility] Comment: NOTE: eGFR is not calculated for patients <18 years of age. This is an estimated GFR calculation using the new CKD EPI creatinine equation without race and so does not require a correction factor for race. This estimated GFR should not be used for calculating drug doses. 08/11/2024 3:18 PM SHEET METAL ASSEMBLER us India Durham MD LABORATORY Final Result [facility] [address] [place] [address], [place] [phone] * (ABNORMAL) C-REACTIVE PROTEIN (08/11/2024 3:18 PM SHEET METAL ASSEMBLER) Pathologist [facility] [place] C-REACTIVE PROTEIN 0.67(H) <0.29 mg/dL 08/11/2024 8:28 PM SHEET METAL ASSEMBLER [facility] 08/11/2024 3:18 PM SHEET METAL ASSEMBLER us India Durham MD LABORATORY Final Result Performing Organization Address City/[facility]/ZIP Co de Phone Number [facility] [address] [place] [address], [place] [phone] * (ABNORMAL) CBC, AUTO, NO DIFF (08/11/2024 3:18 PM SHEET METAL ASSEMBLER) Pathologist [facility] [place] WBC 9.35 4.4 - 11.0 x10'3/uL 08/11/2024 3:26 PM SHEET METAL ASSEMBLER [facility] RBC 4.80 4.50 - 5.10 x10'6/uL 08/11/2024 3:26 PM SHEET METAL ASSEMBLER [facility] HGB 15.0 12.3 - 15.3 G/DL 08/11/2024 3:26 PM SHEET METAL ASSEMBLER [facility] HCT 43.6 35.9 - 44.6 % 08/11/2024 3:26 PM SHEET METAL ASSEMBLER [facility] MCV 90.8 80.0 - 96.0 FL 08/11/2024 3:26 PM SHEET METAL ASSEMBLER [facility] MCH 31.3(H) 25.3 - 30.9 PG 08/11/2024 3:26 PM SHEET METAL ASSEMBLER [facility] MCHC 34.4(H) 31.0 - 34.1 G/DL 08/11/2024 3:26 PM SHEET METAL ASSEMBLER [facility] RDW 12.6 12.4 - 15.1 % 08/11/2024 3:26 PM SHEET METAL ASSEMBLER [facility] PLT 321 151 - 353 x10'3/uL 08/11/2024 3:26 PM [facility] MPV 9.7 9.6 - 12.0 FL 08/11/2024 3:26 PM SHEET METAL ASSEMBLER [facility] 08/11/2024 3:18 PM SHEET METAL ASSEMBLER us India Durham MD LABORATORY Final Result Performing Organization Address [facility]/ZIP Co de Phone Number [facility] [address] [place] [address], [place] [phone] * THYROID STIM HORMONE TSH (08/11/2024 3:18 PM SHEET METAL ASSEMBLER) TSH 0.412 0.358 - 3.74 uIU/ML 08/11/2024 3:57 PM SHEET METAL ASSEMBLER [facility] Comment: HIGH DOSES OF BIOTIN MAY INTERFERE WITH THIS TEST RESULT. CORRELATION TO CLINICAL HISTORY AND PRESENTATION RECOMMENDED. 08/11/2024 3:18 PM SHEET METAL ASSEMBLER us India Durham MD LABORATORY Final Result Performing Organization Address [facility]/ZIP Co de Phone Number [facility] [address] [place] [address], [place] [phone] * MG SCREENING W NARESH SALLY DIGI (04/09/2024 1:45 PM CDT) Anatomical Region Laterality Modality Breast Bilateral Mammography 04/09/2024 5:14 PM CDT Impressions 04/09/2024 5:18 PM CDT ===== IMPRESSION: ===== 1. Stable mammographic appearance with no new findings to suggest malignancy in either breast. Assessment: ACR BI-RADS 2 - BENIGN FINDING(S) Recommendation: 1:Routine Screening Bilateral Comments: Ordered By: YESICA SALDAÑA Interpreted By: Miriam Robertson, 04/09/2024 5:14 PM Narrative 04/09/2024 5:18 PM CDT EXAMINATION: Digital bilateral screening mammogram with 3-D tomosynthesis EXAM DATE/TIME: 04/09/2024 1:23 PM REASON FOR EXAM: encounter for screening mammogram Paternal grandmother with breast carcinoma age 80. Paternal aunt with breast carcinoma age 70. COMPARISON: 10/29/2022.. 03/02/2020 Technique: Digital screening mammography of both breasts was performed in addition to 3-D Tomosynthesis technique. This study was read with the assistance of a computer-aided detection system. Tissue density: There are scattered areas of fibroglandular density. Findings: Similar benign nodule within the posterior central right breast. There is no new focal asymmetry, dominant mass lesion, area of skin thickening, or cluster of suspicious appearing calcifications in either breast to suggest malignancy. Yesica Saldaña MD MAMMO Final Re sult * HUMAN PAPILLOMAVIRUS, HIGH-RISK TYPES (11/26/2023 12:00 PM SHEET METAL ASSEMBLER) SPEC DESCRIPTION CERVIX 11/28/19 24 9:21 AM SHEET METAL ASSEMBLER [facility] HPV DNA HIGH RISK NEGATIVE NEGATIVE 11/30/2023 2:48 AM SHEET METAL ASSEMBLER [facility] Comment:SEE CYTOLOGY REPORT 11/26/2023 12:0 0 PM SHEET METAL ASSEMBLER Yesica Saldaña MD PATHOLOGY/CYTOLOGY ORDER ELIO Final Result [facility]) [facility] [address] [place] [address], * Cytopath Cerv/Vag Thin Layer (11/26/2023 12:00 AM SHEET METAL ASSEMBLER) THIN PREP PAP [address] [phone] Department of Pathology Pathology Report CERVICAL/VAGINAL PAP SMEAR REPORT Name: NARCISA HONG Age: 8 1980 (Age: 43) Location: [facility] Sex: F Collected Date: 11/26/2023 [facility] #: [id number] Date Received: 11/28/2023 Date Reported: 12/03/2023 Provider: YESICA SALDAÑA MD INTERPRETATION CERVICAL/ENDOCERVI RADHA: SATISFACTORY FOR EVALUATION. ENDOCERVICAL/TRANS FORMATION ZONE COMPONENT ABSENT. NEGATIVE FOR INTRAEPITHELIAL LESION OR MALIGNANCY. NEGATIVE FOR HIGH RISK HPV. The FDA approved Aptima HPV assay is an in vitro nucleic acid amplification test for the qualitative detection of E6/E7 viral messenger RNA (mRNA) from 14 high-risk types of human papillomavirus (HPV) in cervical specimens. The high-risk HPV types detected by the assay include: 16,18,31,33,35,39, 45,51,52,56,58,59, 66, and 68. Initial cytologic [place] [address]. This case was interpreted and signed out at [facility], [address] [place] [address]. Electronically Signed Out ISABELA Shelley MD (ASCP) CLINICAL HISTORY Z12.4 ENCOUNTER FOR SCREENING FOR MALIGNANT NEOPLASM OF CERVIX Z11.3 STD SCREEN (NGON,CTRACH,TRICH ) SCREENING PAP ThinPrep Pap Test with HR HPV testing in patient > 30 years requested. Date of Last Menstrual Period: UNKNOWN Menstrual Status: Regular Contraceptive History: IUD SPECIMEN SUBMITTED CERVICAL/ENDOCERVI RADHA Specimen Received:1 Thin Prep Vial, Image Assisted Pap (SMD) Please note: The Pap smear is not a diagnostic test. It is a screening test. Negative results on combined screening (Pap test and HPV-DNA) have a high negative predictive value (99.1-100 percent) for cervical cancer. The pap test is not effective in detecting cervical adenocarcinoma. [facility] 11/26/2023 11/28/2023 8:3 5 AM SHEET METAL ASSEMBLER Comment:CERVICAL/ENDOCERVICA L us Yesica Saldaña MD PATHOLOGY/CYTOLOGY ORDER ELIO Final Result [facility] [address] [place] [address], from Last 3 Months or Most Recently Relevant to Health Maintenance Insurance [facility] [employer]NA[employer] [facility] Care Teams Allergy And Immunology Specialist Relationship Specialty Start Date End Date India Durham MD [address] [place] [id number] PCP - General FAMILY PRACTICE 07/31/22
[2024-11-11 23:04] VITALS: BP 117/78; PULSE 89; RESP 14; O2SAT 100
--- OUTSIDE RECORDS SUMMARY | 2024-11-11 23:21 | XMS_ITS | Encounter Summary ---
Author Organization [facility] Address [address] [place] [address] Care Team Providers Care Manager Fitness Name Role Phone Unavailable Primary Care Provider Unavailabl e Reason for Visit * Reason Comments Establish Care Tailbone fracture Encounter Details Date Type Department Care Team (Late st Contact Info) Description 11/10/2024 3:00 PM TRANSPORT ENGINEER Office Visit [facility]oped[facility] [address] [place] [phone] Isac Feliciano MD [address] [place], [place] [phone] Social History Tobacco Use Types Packs/Day Years [...] Comments Blood Pressure 118/79 11/10/2024 3:29 PM TRANSPORT ENGINEER Pulse 84 11/10/2024 3:29 PM TRANSPORT ENGINEER Temperature 36.9 C (98.5 F) 11/10/2024 3:29 PM TRANSPORT ENGINEER Respiratory Rate 18 11/10/2024 3:29 PM TRANSPORT ENGINEER Oxygen Saturation 100% 11/10/2024 3:29 PM TRANSPORT ENGINEER Inhaled Oxygen Concentration - - Weight 81.6 kg (180 lb) 11/10/2024 3:29 PM TRANSPORT ENGINEER Height 170.2 cm (5' 7 ) 11/10/2024 3:29 PM TRANSPORT ENGINEER Body Mass Index 28.19 11/10/2024 3:29 PM TRANSPORT ENGINEER documented in this encounter Plan of Treatment Upcoming Encounters Date Type Department Care Team (Late st Contact Info) Description 12/25/2024 9:30 AM CDT Office Visit [facility] Health Orthopedics [address] [place] [phone] Genoveva Ward, CHEMISTRY MANAGER-[facility] [address] [place] [address] documented as of this encounter Visit Diagnoses Not on filedocumented in this encounter
--- OUTSIDE RECORDS SUMMARY | 2024-11-11 23:22 | XMS_ITS | Clinical Summary ---
Author Organization [facility] Address [address] [place] [address] Care Team Providers Care Imaging Science Professor Name Role Phone Unavailable Primary Care Provider Unavailabl e Source Comments [facility],non-owned Affiliates and Associated Physician Practices is amultiple site organization consisting of ambulatory clinics and hospital sitesin [place], [place] and [place]. This disclosure is being madepursuant to the Care Everywhere program and may not contain all information available regarding this patient. Last updated 18.[facility] Allergies Active Allergy Reactions Criticality Noted Date [...] 1 (one) tablet 10/13/2024 Active nystatin (Mycostatin) 120470 UNIT/ML suspension 08/19/2024 Active oxyBUTYnin (Ditropan) 5 [...] Department Care Team Description 11/10/2024 3:00 PM SOIL TECHNICIAN Office Visit [facility] [address] [place] [address] Isac Feliciano MD from Last [...] Comments Blood Pressure 118/79 11/10/2024 3:29 PM SOIL TECHNICIAN Pulse 84 11/10/2024 3:29 PM SOIL TECHNICIAN Temperature 36.9 C (98.5 F) 11/10/2024 3:29 PM SOIL TECHNICIAN Respiratory Rate 18 11/10/2024 3:29 PM SOIL TECHNICIAN Oxygen Saturation 100% 11/10/2024 3:29 PM SOIL TECHNICIAN Inhaled Oxygen Concentration - - Weight 81.6 kg (180 lb) 11/10/2024 3:29 PM SOIL TECHNICIAN Height 170.2 cm (5' 7 ) 11/10/2024 3:29 PM SOIL TECHNICIAN Body Mass Index 28.19 11/10/2024 3:29 PM SOIL TECHNICIAN Plan of Treatment Upcoming Encounters Date Type Department Care Team (Late st Contact Info) Description 12/25/2024 9:30 AM CDT Office Visit [facility] [address] [place] [phone] Genoveva Ward, CITY CARRIER-BEAD INSPECTOR [address] [place] [address] Health Maintenance Due Date Last Done Comments [...]
--- OUTSIDE RECORDS SUMMARY | 2024-11-11 23:22 | XMS_ITS ---
Author Organization [facility] Address [address] [place] [address] Care Team Providers Care Life Insurance Salesperson Name Role Phone Jed Roy Primary Care Provider [phone] Michael Brown Unavailable [phone] Allergies Allergen (clinical drug ingredient) Drug/Non Drug [...] for 30 day(s) Lurasidone restarting 09/18/2024 Active [place] Carbonate ER 300 MG 1 tablet at [...] Female Encounters Encounter Location Date Provider Diagnosis [address] [place] [address] 10/13/2024 Michael Brown Bipolar 1 disorder F31.9 [...] number to the 24-hour crisis line at [facility]. Questions addressed. Client verbalized understanding of [...] Name Sig Start Date Stop Date Notes [place] Carbonate ER 300 MG 1 tablet at [...] number to the 24-hour crisis line at [facility]. Questions addressed. Client verbalized understanding of all information and is agreeable to treatment plan. Next Appt Details Follow Up: 2 Weeks - 4 Weeks , Reason: Medication management - can be telehealth appt. or in office appt. Provider Name:Michael Norwood , 11/12/2024 08:40:00 AM, [address] [facility], [place], [address], Progress Notes * Wendy PAZDOB: 1 (44 yo F)Acc No.[id number]:10/13/2024 Patient: Wendy PEREZ Provider: Mele Brown DNP, PMHNP-BC :1980 A ge:44 Y S ex:Female Date:10/13/2024 Address:[address] [place], [place] [phone] Pcp:Jed oRy Subjective: * Chief Complaints: * 4 week [...] - Follow Up Plan required. S creening: [place] Suicide Severity Rating Scale (LF) D o [...] recently started a new job at the [employer] and has been dealing with personal issues, [...] ciggerettes. Drug/Alcohol: rarely ETOH Therapy: Counselor at [facility] Labs: 2020. Currently declines. PCP draws routine lab work. PAST PSYCHOTROPIC MEDICATIONS: Lorazepam 0.5 mg day , Vyvanse 50 mg day (ADHD), Abilify as adjunct to xmwg-nrtkexcirt-egfndl gain, HISTORICAL BACKGROUND:States she was fired from [...] 100 mg bedtime, PCP: Dr. Jean in [place] SUPERVISOR ELECTRON TUBE PROCESSING is Dr. Annie martinez in [place] Control : IUD Menstrual Periods: irregular This [...] Hospitalization/Major Diagno stic Procedure: [facility] [place]. DecemberRU - Depression Summer 2020 * Family History: F ather: , kidney cancer. M other: alive, healthy. 2 sister(s) - healthy. .? * Social History: P [facility] Social History: L iving Arrangement L [...] number to the 24-hour crisis line at [facility]. Questions addressed. Client verbalized understanding of all information and is agreeable to treatment plan. * Procedure Codes: * Follow Up: 2 Weeks - 4 Weeks (Reason: Medication management - can be telehealth appt. or in office appt.) * * ALT ROLLER OPERATOR Sign off status: Completed true * Provider: Mele Brown DNP, PMHNP- Date: 0 10/13/2024 Generated for No faye/Guzman/Ehsansmitting on: 0 11/11/2024 11:22 PM ASPHALT ROLLER OPERATOR History and Physical Notes * HPI (History [...] involved in behavioral health treatment . Screening [place] Suicide Sev erity Rating Scale (LF) Do [...]
--- OUTSIDE RECORDS SUMMARY | 2024-11-11 23:22 | XMS_ITS | Referral Summary ---
Author Organization [facility] Address [address] [facility] [place] [address] Care Team Providers Care Head Of Marketing Analytics Name Role Phone Unavailable Primary Care Provider Unavailabl e Source Comments [facility],non-owned Affiliates and Associated Physician Practices is amultiple site organization consisting of ambulatory clinics and hospital sitesin [place], [place] and [place]. This disclosure is being madepursuant to the Care Everywhere program and may not contain all information available regarding this patient. Last updated 18.[facility] Encounters Date Type Department Care Team Description 11/10/2024 3:00 PM MOLD MAKER HELPER Office Visit [facility] Orthoped[facility] [address] [place] [address] Isac Feliciano MD from Last 3 Months [...] 1 (one) tablet 10/13/2024 Active nystatin (Mycostatin) 903799 UNIT/ML suspension 08/19/2024 Active oxyBUTYnin (Ditropan) 5 [...] Comments Blood Pressure 118/79 11/10/2024 3:29 PM MOLD MAKER HELPER Pulse 84 11/10/2024 3:29 PM MOLD MAKER HELPER Temperature 36.9 C (98.5 F) 11/10/2024 3:29 PM MOLD MAKER HELPER Respiratory Rate 18 11/10/2024 3:29 PM MOLD MAKER HELPER Oxygen Saturation 100% 11/10/2024 3:29 PM MOLD MAKER HELPER Inhaled Oxygen Concentration - - Weight 81.6 kg (180 lb) 11/10/2024 3:29 PM MOLD MAKER HELPER Height 170.2 cm (5' 7 ) 11/10/2024 3:29 PM MOLD MAKER HELPER Body Mass Index 28.19 11/10/2024 3:29 PM MOLD MAKER HELPER Plan of Treatment Upcoming Encounters Date Type Department Care Team (Late st Contact Info) Description 12/25/2024 9:30 AM CDT Office Visit [facility] Health Orthopedics [address] [place] [address] Genoveva Ward, SENIOR ARCHITECTURAL DESIGNER-PRINCIPAL INVESTIGATOR [address] [place] [address]
--- OUTSIDE RECORDS SUMMARY | 2024-11-11 23:22 | XMS_ITS | Clinical Summary ---
Author Organization [facility] Address [address] [place] [address] Care Team Providers Care Brimmer Blocker Name Role Phone India Durham MD Primary Care Provider [phone] Allergies Active Allergy Reactions Criticality Noted Date [...] hyperactivity disorder (ADHD) 11/24/2022 Bipolar 1 disorder ([facility]) 11/24/2022 Depression 11/24/2022 Opioid dependence in remission ([facility]) 11/24/2022 Fatigue 11/17/2019 Abnormal uterine bleeding 07/31/2019 Anemia 07/31/2019 BV (bacterial vaginosis) 07/31/2019 Atypical squamous cell olivarez es of cervix undetermined significance favor benign 02/16/2011 Overview (11/24/2022): Note: +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 Generalized anxiety disorder 02/08/2011 Overview (11/24/2022): Date Onset: 21 years old Irritable bowel syndrome 02/08/2011 Overview (11/24/2022): Date Onset: 21 years old Encounters Date Type Department Care Team Description 11/03/2024 Telephone [facility] Family & Internal Medicine [address] [address] None, Provider, Question 10/30/2024 3:40 PM DATA CENTER ENGINEER Office Visit [facility] Family & Internal Medicine [address] [address] Luis Alfredo Dubon PA Headache (Headache - sinus infection + migraine cough that started 2 days ago) 10/30/2024 Travel 09/25/2024 9:09 PM DATA CENTER ENGINEER - 09/25/2024 10:08 PM DATA CENTER ENGINEER Emergency [facility] Emergency Room [id number] [place] [id number] Coccyx Pain Discharge Disposition: Left Against Medical Advice 09/14/2024 5:19 PM DATA CENTER ENGINEER - 09/14/2024 7:43 PM DATA CENTER ENGINEER Emergency [facility] Emergency Room [address] [place] [id number] Rakel Nair MD Back Pain Discharge Disposition: Home or Self Care (Routine Discharge) 09/14/2024 Travel 08/28/2024 7:30 AM DATA CENTER ENGINEER - 08/28/2024 11:59 PM DATA CENTER ENGINEER Hospital Encounter [facility] Nuclear Medicine [address] [place] [phone] India Durham MD Discharge Disposition: Home or Self Care (Routine Discharge) 08/28/2024 Travel 08/21/2024 2:00 PM DATA CENTER ENGINEER - 08/21/2024 11:59 PM DATA CENTER ENGINEER Hospital Encounter [facility] Ultrasound [address] [place] [phone] India Durham MD Discharge Disposition: Home or Self Care (Routine Discharge) 08/21/2024 Travel 08/11/2024 3:00 PM DATA CENTER ENGINEER - 08/11/2024 11:59 PM DATA CENTER ENGINEER Hospital Encounter [facility] [address] [place] [phone] India Durham MD Discharge Disposition: Home or Self Care (Routine Discharge) 08/11/2024 Orders Only [facility] [address] [place] [phone] India Durham MD 08/11/2024 Travel from Last [...] Comments Blood Pressure 106/73 10/30/2024 3:31 PM DATA CENTER ENGINEER Pulse 98 10/30/2024 3:31 PM DATA CENTER ENGINEER Temperature 36.8 C (98.3 F) 10/30/2024 3:31 PM DATA CENTER ENGINEER Respiratory Rate 18 10/30/2024 3:31 PM DATA CENTER ENGINEER Oxygen Saturation 98% 10/30/2024 3:31 PM DATA CENTER ENGINEER Inhaled Oxygen Concentration - - Weight 82.6 kg (182 lb) 10/30/2024 3:31 PM DATA CENTER ENGINEER Height 170.2 cm (5' 7 ) 10/30/2024 3:31 PM DATA CENTER ENGINEER Body Mass Index 28.51 10/30/2024 3:31 PM DATA CENTER ENGINEER Plan of Treatment Health Maintenance Due Date Last Done Comments Annual Physical 1984 Hepatitis C 1999 Hepatitis B Vaccines (1 of 3 - 19+ 3-dose series) 2000 COVID-19 Vaccine ( - season) 2024 10/12/2021 Influenza Adult (#1) 2024 09/13/2021 PHQ-2 (Physician [facility]) 09/30/2024 11/24/2022 DTaP, Tdap and Td Vaccines [...] SPINE WO CON STAT 09/14/2024 6:52 PM DATA CENTER ENGINEER TEST URINE STAT 09/14/2024 6:29 PM DATA CENTER ENGINEER URINALYSIS, AUTO, COMPLETE STAT 09/14/2024 6:29 PM DATA CENTER ENGINEER CBC W/DIFF AUTOMATED STAT 09/14/2024 6:21 PM DATA CENTER ENGINEER SED RATE, ERYTHROCYTE (ESR) STAT 09/14/2024 6:21 PM DATA CENTER ENGINEER NM BONE SCAN 3 PHASE Routine 08/28/2024 11:30 AM DATA CENTER ENGINEER Right elbow pain USE ECHOCARDIOGRAM W CON Routine 08/21/2024 3:17 PM DATA CENTER ENGINEER Abnormal EKG ENA2 (SSA & SSB) Routine 08/11/2024 3:18 PM DATA CENTER ENGINEER Anemia, unspecified Myxedema heart disease Essential hypertension, malignant Senile arthritis Sjogren's disease ([facility]/HCC [facility]/HCC) RHEUMATOID FACTOR, QUANT Routine 08/11/2024 3:18 PM DATA CENTER ENGINEER Anemia, unspecified Myxedema heart disease Essential hypertension, malignant Senile arthritis ANTINUCLEAR ANTIBODY WI RFX Routine 08/11/2024 3:18 PM DATA CENTER ENGINEER Anemia, unspecified Myxedema heart disease Essential hypertension, malignant Senile arthritis C-REACTIVE PROTEIN Routine 08/11/2024 3: 18 PM DATA CENTER ENGINEER Anemia, unspecified Myxedema heart disease Essential hypertension, malignant Senile arthritis COMPREHENSIVE METABOLIC PANEL Routine 08/11/2024 3:18 PM DATA CENTER ENGINEER Anemia, unspecified Myxedema heart disease Essential hypertension, malignant Senile arthritis THYROID STIM HORMONE TSH Routine 08/11/2024 3:18 PM DATA CENTER ENGINEER Anemia, unspecified Myxedema heart disease Essential hypertension, malignant Senile arthritis CBC, AUTO, NO DIFF Routine 08/11/2024 3: 18 PM DATA CENTER ENGINEER Anemia, unspecified Myxedema heart disease Essential hypertension, malignant Senile arthritis MG SCREENING W NARESH SALLY DIGI Routine 04/09/2024 1:45 PM CDT Encounter for screening mammogram for malignant neoplasm of breast HUMAN PAPILLOMAVIRUS, HIGH-RISK TYPES Routine 11/26/2023 12:00 PM DATA CENTER ENGINEER CYTOPATH CERV/VAG THIN LAYER Routine 11/26/2023 12:00 AM DATA CENTER ENGINEER Routine cervical smear from Last 3 Months or Most Recently Relevant to Health Maintenance Results * CORONAVIRUS (COVID-19) INFLUENZA A & B ANTIGEN IA PANEL (10/30/2024) CORONAVIRUS ANTIGEN IA NEGATIVE NEGATIVE [id number], [place] INFLUENZA A NEGATIVE NEGATIVE [id number], [place] INFLUENZA B NEGATIVE NEGATIVE [id number], [place] Internal Control: VALID VALID [id number], [place] NASAL STRUCTURE / Unknown 10/30/2024 us Luis Alfredo FERRARO MICROBIOLOGY - GENERAL ORDERAB LES Final Result -[id number], [place] [address] [place] [address], * CT LUMB SPINE WO CON (09/14/2024 6:52 PM DATA CENTER ENGINEER) Anatomical Region Laterality Modality Spine Computed Tomogra phy 09/14/2024 6:56 PM DATA CENTER ENGINEER Impressions 09/14/2024 7:09 PM DATA CENTER ENGINEER IMPRESSION: 1. Acute displaced fracture of the Co1 coccygeal vertebral body as well as acute minimally displaced fracture of the Co2 coccygeal vertebral body. 2. Associated presacral and precoccygeal soft tissue stranding. 3. No acute findings in the lumbar spine. Referred By: Interpreted By: Mendel Murillo MD, 09/14/2024 6:56 PM Narrative 09/14/2024 7:09 PM DATA CENTER ENGINEER [facility] [address] [place] [address] Examination: CT lumbar spine without contrast Exam [...] MD - 09/14/2024 [facility] [address] [place] [address] Examination: CT lumbar spine without contrast Exam [...] Result * TEST URINE (09/14/2024 6:29 PM DATA CENTER ENGINEER) URINE HCG TEST NEGATIVE NEGATIVE 09/14/2024 6:38 PM DATA CENTER ENGINEER [facility] Comment: VERY DILUTE URINE SPECIMENS MAY NOT CONTAIN WOOD CUTTER LEVELS OF HCG. IF IS STILL SUSPECTED, A SERUM HCG TEST IS RECOMMENDED. URINE SPECIMEN FROM URETHRA / Unknown 09/14/2024 6:29 PM DATA CENTER ENGINEER Rakel Nair MD URINE ORDERABLES Final Resul t [facility] [address] [place] [address], [place] [phone] * URINALYSIS, AUTO, COMPLETE (09/14/2024 6:29 PM DATA CENTER ENGINEER) COLOR (U) YELLOW 09/14/2024 6:45 PM DATA CENTER ENGINEER [facility] TRANSPARENCY CLEAR 09/14/2024 6:45 PM DATA CENTER ENGINEER [facility] SPECIFIC GRAVITY (U) <1.005 1.000 - 1.030 09/14/2024 6:45 PM [facility] U PH 6.0 5.0 - 9.0 09/14/2024 6:45 PM [facility] LEUKOCYTES (U) NEGATIVE NEGATIVE 09/14/2024 6:45 PM [facility] NITRITES NEGATIVE NEGATIVE 09/14/2024 6:45 PM [facility] PROTEIN RANDOM (U) NEGATIVE NEGATIVE 09/14/2024 6:45 PM [facility] GLUCOSE (U) NEGATIVE NEGATIVE 09/14/2024 6:45 PM [facility] KETONES MG/DL (U) NEGATIVE NEGATIVE 09/14/2024 6:45 PM [facility] BILIRUBIN (U) NEGATIVE NEGATIVE 09/14/2024 6:45 PM [facility] BLOOD (U) NEGATIVE NEGATIVE 09/14/2024 6:45 PM [facility] WBC/HPF 0-5 0 - 5 /HPF 09/14/2024 6:45 PM [facility] RBC/HPF 0-5 0 - 5 /HPF 09/14/2024 6:45 PM [facility] EPI/HPF MODERATE /HPF 09/14/2024 6:45 PM [facility] BACTERIA (U) FEW /HPF 09/14/2024 6:45 PM DATA CENTER ENGINEER [facility] URINE SPECIMEN OBTAINED BY CLEAN CATCH PROCEDURE / Unknown 09/14/2024 6:29 PM DATA CENTER ENGINEER Rakel Nair MD URINE ORDERABLES Final Resul t Performing Organization Address City/[facility]/ZIP Co de Phone Number [facility] [address] [place] [address], [place] [phone] * SED RATE, ERYTHROCYTE (ESR) (09/14/2024 6:21 PM DATA CENTER ENGINEER) ESR 13 0 - 20 MM/HR 09/14/2024 6:34 PM DATA CENTER ENGINEER [facility] 09/14/2024 6:21 PM DATA CENTER ENGINEER Rakel Nair MD LABORATORY Final Result Performing Organization Address [facility]/ZIP Co de Phone Number [facility] [address] [place] [address], [place] [phone] * (ABNORMAL) CBC W/DIFF AUTOMATED (09/14/2024 6:21 PM DATA CENTER ENGINEER) WBC 10.60 4.4 - 11.0 x10'3/uL 09/14/2024 6:27 PM [facility] RBC 5.15(H) 4.50 - 5.10 x10'6/uL 09/14/2024 6:27 PM [facility] HGB 16.0(H) 12.3 - 15.3 G/DL 09/14/2024 6:27 PM [facility] HCT 47.8(H) 35.9 - 44.6 % 09/14/2024 6:27 PM [facility] MCV 92.8 80.0 - 96.0 FL 09/14/2024 6:27 PM [facility] MCH 31.1(H) 25.3 - 30.9 PG 09/14/2024 6:27 PM [facility] MCHC 33.5 31.0 - 34.1 G/DL 09/14/2024 6:27 PM [facility] RDW 12.8 12.4 - 15.1 % 09/14/2024 6:27 PM [facility] PLT 358(H) 151 - 353 x10'3/uL 09/14/2024 6:27 PM [facility] MPV 9.8 9.6 - 12.0 FL 09/14/2024 6:27 PM [facility] RBC MORPHOLOGY NORMAL 09/14/2024 6:27 PM [facility] PLT MORPH. NORMAL 09/14/2024 6:27 PM [facility] WBC MORPHOLOGY NORMAL 09/14/2024 6:27 PM [facility] LYMPHOCYTES % 34.2 15.8 - 45.0 % 09/14/2024 6:27 PM [facility] NEUTROPHILS % 55.2 42.1 - 71.9 % 09/14/2024 6:27 PM [facility] MONOCYTES % 5.8 5.7 - 12.5 % 09/14/2024 6:27 PM [facility] EOSINOPHILS 3.6 0.0 - 5.6 % 09/14/2024 6:27 PM [facility] BASOPHILS 0.8 0.0 - 1.3 % 09/14/2024 6:27 PM [facility] ABS. NEUTROPHILS 5.86 1.40 - 6.00 x10'3/uL 09/14/2024 6:27 PM DATA CENTER ENGINEER [facility] IMMATURE GRANS % 0.4 0.0 - 0.5 % 09/14/2024 6:27 PM DATA CENTER ENGINEER [facility] ABS. LYMPHOCYTES 3.62 0.80 - 4.70 x10'3/uL 09/14/2024 6:27 PM DATA CENTER ENGINEER [facility] 09/14/2024 6:21 PM DATA CENTER ENGINEER us Rakel Nair MD LABORATORY Final Result [facility] [address] [place] [address], [place] [phone] * NM BONE SCAN 3 PHASE (08/28/2024 11:30 AM DATA CENTER ENGINEER) Anatomical Region Laterality Modality Bone Nuclear Medicine 08/28/2024 11:4 9 AM DATA CENTER ENGINEER Impressions 08/28/2024 11:52 AM DATA CENTER ENGINEER IMPRESSION: 1. No 3-phase positive uptake at the right elbow to suggest occult healing fracture or infection. 2. Mildly increased osseous uptake at the right elbow is nonspecific and could be degenerative. Ordered By: INDIA DURHAM Interpreted By: Wendy Ortiz MD, 08/28/2024 11:49 AM Narrative 08/28/2024 11:52 AM DATA CENTER ENGINEER [facility] [address] [facility] [place] [address] EXAMINATION: BONE SCINTIGRAPHY (THREE-PHASE) DATE OF STUDY: [...] MD - 08/28/2024 [facility] [address] [place] [address] EXAMINATION: BONE SCINTIGRAPHY (THREE-PHASE) DATE OF STUDY: [...] USE ECHOCARDIOGRAM W CON (08/21/2024 3:17 PM DATA CENTER ENGINEER) Anatomical Region Laterality Modality NA Ultrasound 08/21/2024 2:13 PM DATA CENTER ENGINEER Narrative 08/25/2024 12:35 PM DATA CENTER ENGINEER JERRI Swanson.Name: Narcisa PazID: [id number] .Date: 08/21/2024 Refer.MD: Shaquille, [facility] Radiology Exam Time: 2:13:00 PM Study Type:SHAQUILLE Height: 67 in Weight: 195 lb BSA: 2 m2 Age: 8 1980,44Y Sex: F Sonogrphr: Lw Pat. Stat.:Outpatient Reason for Study:Abnormal ECG Procedures: Study performed at [place], [place] and interpreted by [facility]. 2D, M-mode, Doppler, Color Flow [...] 08/25/2024 JERRI CORBIN Pat.Name: Narcisa Paz Kiki.ID: [id number] .Date: 08/21/2024 Refer.MD: Shaquille, [facility] Radiology Exam Time: 2:13:00 PM Study Type:OUTREACH Height: 67 in Weight: 195 lb BSA: 2 m2 Age: 8 1980,44Y Sex: F Sonogrphr: Lw Pat. Stat.:Outpatient Reason for Study:Abnormal ECG Procedures: Study performed at [place], [place] and interpreted by [facility]. 2D, M-mode, Doppler, Color Flow [...] ANTIBODY WI RFX (SURESH) (08/11/2024 3:18 PM DATA CENTER ENGINEER) SURESH 0.3 08/12/2024 2:35 PM DATA CENTER ENGINEER [facility] Comment: NEGATIVE: <0.7 RATIO SURESH PROFILE AND TITER NOT PERFORMED THE SURESH SCREEN TESTS FOR THE FOLLOWING ANTIBODIES BY EIA: SSA1 (RO), SSB1 (LA), NAIR, SCL70, JO1, CENTROMERE, INSIDE SALES ASSISTANT HISTONE MUST BE ORDERED SEPARATELY DNA (DS) ANTIBODY 0.9 IU/ML 024 2:35 PM DATA CENTER ENGINEER [facility] Comment: NEGATIVE: <10 IU/mL EQUIVOCAL: 10 to 15 IU/mL POSITIVE: >15 IU/mL THIS QUANTITATIVE ASSAY IS CALIBRATED TO THE [employer]'S WO/80 STANDARD. THE LEVEL OF dsDNA AUTOANTIBODY GERERALLY CORRELATES WITH THE LEVEL OF DISEASE ACTIVITY IN SYSTEMIC LUPUS ERYTHMATOSUS 08/11/2024 3:18 PM DATA CENTER ENGINEER India Durham MD LABORATORY Final Result [facility] [address] [place] [address], [place] [phone] [id number] * RHEUMATOID FACTOR, QUANT (08/11/2024 3:18 PM DATA CENTER ENGINEER) RHEUMATOID FACTOR <10 <15 IU/ML 08/11/2024 8:27 PM DATA CENTER ENGINEER [facility] 08/11/2024 3:18 PM DATA CENTER ENGINEER India Durham MD LABORATORY Final Result [facility] [address] [place] [address], [place] [phone] * ENA2 (SSA & SSB) (08/11/2024 3:18 PM DATA CENTER ENGINEER) SSA ANTIBODY <1.0 08/13/2024 7:31 PM DATA CENTER ENGINEER [employer] [facility] Comment: Reference Range: < 1.0 NEG AI SSB ANTIBODY <1.0 08/13/2024 7:31 PM DATA CENTER ENGINEER [facility] Comment: Reference Range: < 1.0 NEG AI Test Performed by [employer], [facility], [address] [place] [address] Eduardo Burrell M.D., Ph.D., Director of Laboratories , [place] [id number] 08/11/2024 3:18 PM DATA CENTER ENGINEER India Durham MD LABORATORY Final Result [employer] [address] , * (ABNORMAL) COMPREHENSIVE METABOLIC PANEL (08/11/2024 3:18 PM DATA CENTER ENGINEER) GLUCOSE 98 70 - 99 MG/DL 08/11/2024 3:57 PM DATA CENTER ENGINEER [facility] BUN 9 7 - 18 MG/DL 08/11/2024 3:57 PM [facility] CREATININE S/P/B 1.07(H) 0.55 - 1.02 MG/DL 08/11/2024 3:57 PM [facility] SODIUM S/P/B 140 136 - 145 MMOL/L 08/11/2024 3:57 PM DATA CENTER ENGINEER [facility] POTASSIUM S/P/B 3.4(L) 3.5 - 5.1 MMOL/L 08/11/2024 3:57 PM [facility] CHLORIDE S/P/B 103 100 - 108 MMOL/L 08/11/2024 3:57 PM DATA CENTER ENGINEER [facility] CO2 27.0 21 - 32 MMOL/L 08/11/2024 3:57 PM [facility] CALCIUM S/P/B 8.9 8.5 - 10.1 MG/DL 08/11/2024 3:57 PM [facility] BILIRUBIN TOTAL S/P/B 0.3 0.2 - 1.2 MG/DL 08/11/2024 3:57 PM [facility] TOTAL PROTEIN S/P/B 8.0 6.4 - 8.2 G/DL 08/11/2024 3:57 PM [facility] ALBUMIN S/P/B 4.4 3.4 - 5.0 G/DL 08/11/2024 3:57 PM [facility] AST 27 15 - 37 U/L 08/11/2024 3:57 PM [facility] ALT 56(H) 14 - 55 U/L 08/11/2024 3:57 PM [facility] ALKALINE PHOSPHATASE S/P/B 85 50 - 136 U/L 08/11/2024 3:57 PM [facility] ANION GAP 10.0 5 - 15 MMOL/L 08/11/2024 3:57 PM [facility] BUN CREATININE RATIO 8.4 6 - 26 08/11/2024 3:57 PM [facility] A/G RATIO 1.2 1.0 - 2.0 RATIO 08/11/2024 3:57 PM [facility] GFR ESTIMATE 66(L) >90 ML/MIN/1.7 3 M2 08/11/2024 3:57 PM [facility] Comment: NOTE: eGFR is not calculated for patients <18 years of age. This is an estimated GFR calculation using the new CKD EPI creatinine equation without race and so does not require a correction factor for race. This estimated GFR should not be used for calculating drug doses. 08/11/2024 3:18 PM DATA CENTER ENGINEER us India Durham MD LABORATORY Final Result [facility] [address] [place] [address], [place] [phone] * (ABNORMAL) C-REACTIVE PROTEIN (08/11/2024 3:18 PM DATA CENTER ENGINEER) Pathologist [facility] C-REACTIVE PROTEIN 0.67(H) <0.29 mg/dL 08/11/2024 8:28 PM DATA CENTER ENGINEER [facility] 08/11/2024 3:18 PM DATA CENTER ENGINEER us India Durham MD LABORATORY Final Result Performing Organization Address City/[facility]/ZIP Co de Phone Number [facility] [address] [place] [address], [place] [phone] * (ABNORMAL) CBC, AUTO, NO DIFF (08/11/2024 3:18 PM DATA CENTER ENGINEER) Pathologist [facility] WBC 9.35 4.4 - 11.0 x10'3/uL 08/11/2024 3:26 PM DATA CENTER ENGINEER [facility] RBC 4.80 4.50 - 5.10 x10'6/uL 08/11/2024 3:26 PM DATA CENTER ENGINEER [facility] HGB 15.0 12.3 - 15.3 G/DL 08/11/2024 3:26 PM DATA CENTER ENGINEER [facility] HCT 43.6 35.9 - 44.6 % 08/11/2024 3:26 PM DATA CENTER ENGINEER [facility] MCV 90.8 80.0 - 96.0 FL 08/11/2024 3:26 PM DATA CENTER ENGINEER [facility] MCH 31.3(H) 25.3 - 30.9 PG 08/11/2024 3:26 PM DATA CENTER ENGINEER [facility] MCHC 34.4(H) 31.0 - 34.1 G/DL 08/11/2024 3:26 PM DATA CENTER ENGINEER [facility] RDW 12.6 12.4 - 15.1 % 08/11/2024 3:26 PM DATA CENTER ENGINEER [facility] PLT 321 151 - 353 x10'3/uL 08/11/2024 3:26 PM [facility] MPV 9.7 9.6 - 12.0 FL 08/11/2024 3:26 PM DATA CENTER ENGINEER [facility] 08/11/2024 3:18 PM DATA CENTER ENGINEER us India Durham MD LABORATORY Final Result Performing Organization Address [facility]/ZIP Co de Phone Number [facility] [address] [place] [address], [place] [phone] * THYROID STIM HORMONE TSH (08/11/2024 3:18 PM DATA CENTER ENGINEER) TSH 0.412 0.358 - 3.74 uIU/ML 08/11/2024 3:57 PM DATA CENTER ENGINEER [facility] Comment: HIGH DOSES OF BIOTIN MAY INTERFERE WITH THIS TEST RESULT. CORRELATION TO CLINICAL HISTORY AND PRESENTATION RECOMMENDED. 08/11/2024 3:18 PM DATA CENTER ENGINEER us India Durham MD LABORATORY Final Result Performing Organization Address [facility]/ZIP Co de Phone Number [facility] [address] [place] [address], [place] [phone] * MG SCREENING W NARESH SALLY DIGI [...] HUMAN PAPILLOMAVIRUS, HIGH-RISK TYPES (11/26/2023 12:00 PM DATA CENTER ENGINEER) SPEC DESCRIPTION CERVIX 11/28/19 24 9:21 AM DATA CENTER ENGINEER [facility] HPV DNA HIGH RISK NEGATIVE NEGATIVE 11/30/2023 2:48 AM DATA CENTER ENGINEER [facility] Comment:SEE CYTOLOGY REPORT 11/26/2023 12:0 0 PM DATA CENTER ENGINEER Yesica Saldaña MD PATHOLOGY/CYTOLOGY ORDER ELIO Final Result [facility] [address] [place] [address], * Cytopath Cerv/Vag Thin Layer (11/26/2023 12:00 AM DATA CENTER ENGINEER) THIN PREP PAP [address] [address] Department of Pathology Pathology Report CERVICAL/VAGINAL PAP SMEAR REPORT Name: NARCISA HONG Age: 8 1980 (Age: 43) Location: [facility] Sex: F Collected Date: 11/26/2023 [facility] #: [id number] Date Received: 11/28/2023 Date Reported: 12/03/2023 Provider: [...] 69. Initial cytologic [place] [address]. This case was interpreted and signed out at [facility], [address] [place] [address]. Electronically Signed Out ISABELA Shelley MD (ASCP) [...] is not effective in detecting cervical adenocarcinoma. [facility] 11/26/2023 11/28/2023 8:3 5 AM DATA CENTER ENGINEER Comment:CERVICAL/ENDOCERVICA L us Yesica Saldaña MD PATHOLOGY/CYTOLOGY ORDER ELIO Final Result [facility] [address] [place] [address], from Last 3 Months or Most Recently Relevant to Health Maintenance Insurance [facility] [employer]K [employer]NAG[facility] Care Teams Brimmer Blocker Relationship Specialty Start Date End Date India Durham MD [address] [place] [id number] PCP - General FAMILY PRACTICE 07/31/22
--- OUTSIDE RECORDS SUMMARY | 2024-11-11 23:22 | XMS_ITS | Patient Health Summary ---
Author Organization [facility] Address [address] [place] [address] Care Team Providers Care Telephone Operator Receptionist Name Role Phone Unavailable Primary Care Provider Unavailabl e Note from [facility],non-owned Affiliates and Associated Physician Practices is amultiple site organization consisting of ambulatory clinics and hospital sitesin [place], [place], [place] and [place]. This disclosure is being madepursuant to the Care Everywhere program and may not contain all information available regarding this patient. Last updated 18.[facility] Allergies * Sulfa Drugs(Urticaria,Itching,Rash) -High Criticality Medications [...] 10/13/2024) 1 (one) tablet * nystatin (Mycostatin) 465052 UNIT/ML suspension(Started 08/19/2024) * oxyBUTYnin (Ditropan) 5 [...] Comments Blood Pressure 118/79 11/10/2024 3:29 PM [employer] MANAGER Pulse 84 11/10/2024 3:29 PM [employer]LE DAT[employer] MANAGER Temperature 36.9 C (98.5 F) 11/10/2024 3:29 PM [employer] MANAGER Respiratory Rate 18 11/10/2024 3:29 PM [employer] DAT[employer] MANAGER Oxygen Saturation 100% 11/10/2024 3:29 PM [employer] DAT[employer] MANAGER Inhaled Oxygen Concentration - - Weight 81.6 kg (180 lb) 11/10/2024 3:29 PM [employer]LE [employer] MANAGER Height 170.2 cm (5' 7 ) 11/10/2024 3:29 PM [employer] MANAGER Body Mass Index 28.19 11/10/2024 3:29 PM [employer]ACLE DAT[employer] MANAGER
--- OUTSIDE RECORDS SUMMARY | 2024-11-11 23:22 | XMS_ITS | Clinical Summary ---
Author Organization [facility] Address [address] [place] [address] Phone Care Team Providers Care Wood Getter Name Role Phone Unavailable Primary Care Provider [...] STL ABSTRACTION Provider, Abstract 11/01/2024 Results Follow-Up [facility] PRODUCTION ENGINE REPAIRER [address] [address] Benjamin Carbajal MD GC/CHLAMYDIA/TRICHOMO TERRA, UROGENITAL 10/30/2024 10:15 AM SENIOR ENERGY ANALYST Office Visit [facility] PRODUCTION ENGINE REPAIRER [place] [phone] [address] Benjamin Carbajal MD Well woman exam with [...] on file Legal Sex Female 1:27 PM SENIOR ENERGY ANALYST Gender Identity Not on file Sexual Orientation Not on file Last Filed Vital Signs Vital Sign Reading Time Taken Comments Blood Pressure - - Pulse 94 10/30/2024 10:33 AM SENIOR ENERGY ANALYST Temperature - - Respiratory Rate - - Oxygen Saturation 98% 10/30/2024 10:33 AM SENIOR ENERGY ANALYST Inhaled Oxygen Concentration - - Weight 81.8 kg (180 lb 6.4 oz) 10/30/2024 10:33 AM SENIOR ENERGY ANALYST Height - - Body Mass Index - - Plan of Treatment Upcoming Encounters Date Type Department Care Team (Latest Contact Info) Description 11/19/2024 8:30 AM SENIOR ENERGY ANALYST Ancillary Procedure [facility] PRODUCTION ENGINE REPAIRER - [address] [place] [phone] 11/19/2024 9:00 AM SENIOR ENERGY ANALYST Office Visit [facility] PRODUCTION ENGINE REPAIRER - [address] [address] Benjamin Carbajal MD [address] [address] 12/30/2024 9:15 AM CDT Office Visit [facility] [address] [address] Benjamin Carbajal MD [address] [address] Cherie Conn MD [address] [address] 04/13/2025 10:20 AM CDT Appointment [address] [address] Benjamin Carbajal MD [address] [address] Health Maintenance Due Date Last [...] GC/CHLAMYDIA/TRICHO MONAS, UROGENITAL Routine 10/30/2024 11:48 AM SENIOR ENERGY ANALYST Well woman exam with routine gynecological exam from Last 3 Months Results * GC/CHLAMYDIA/TRICHOMONAS, UROGENITAL (10/30/2024 11:48 AM SENIOR ENERGY ANALYST) CHLAMYDIA TRACHOMATIS RNA, TMA, UROGENITAL NOT DETECTED NOT DETECTED [facility] NEISSERIA GONORRHOEAE RNA, TMA, UROGENITAL NOT DETECTED NOT DETECTED [facility] COMMENT INFECTIOUS DISEASE [facility] Comment: The analytical performance characteristics of this assay, when used to test SurePath(TM) specimens have been determined by [facility]. The modifications have not been cleared or approved by the FDA. This assay has been validated pursuant to the CLIA regulations and is used for clinical purposes. For additional information, please refer to https://[employer].Click Security/faq/ZNX415 (This link is being provided for information/ educational purposes only.) TRICHOMONAS VAGINALIS RNA QUAL TMA NOT DETECTED NOT DETECTED [facility] Comment: For additional information, please refer to http://education.[employer]/ faq/Trichomonastma (This link is being provided for informational/ educational purposes only.) Test Performed at: [facility] [address] [place] [address] Katina Andre MD Genital SWAB OF ENDOCERVIX / Unknown 10/30/2024 11:48 AM SENIOR ENERGY ANALYST 10/31/2024 6:53 AM SENIOR ENERGY ANALYST us Benjamin Carbajal MD MICROBIOLOGY - GENERAL ORDERAB LES Final Result [facility] [phone] [facility] [address] [place] [phone] from Last 3 Months Insurance [facility] RISK MANAGEMENT
--- OUTSIDE RECORDS SUMMARY | 2024-11-11 23:22 | XMS_ITS ---
Author Organization [facility] Address [address] [place] [address] Care Team Providers Care Valet Name Role Phone Jed Roy Primary Care Provider Michael Brown Unavailable [phone] Allergies Allergen (clinical drug ingredient) Drug/Non Drug [...] 09/17/2024 Encounters Encounter Location Date Provider Diagnosis [address] [address] 09/17/2024 Michael Brown Generalized anxiety disorder F41.1 [...] to the 24-hour crisis line at [facility]. Questions addressed. Client verbalized understanding of all [...] to the 24-hour crisis line at [facility]. Questions addressed. Client verbalized understanding of all information and is agreeable to treatment plan. Next Appt Details Follow Up: 4 Weeks, Reason: Medication management - can be telehealth appt. or in office appt. Provider Name:Michael Norwood , 11/12/2024 08:40:00 AM, [address] [place] [address], [phone], Progress Notes * Wendy PAZDOB: 1 (44 yo F)Acc No.[id number]:09/17/2024 Patient: Wendy PEREZ Provider: Mele Brown DNP, PMHNP-BC :1980 A ge:44 Y S ex:Female Date:09/17/2024 Address:[address] [place], [place] [phone] Pcp:Jed Roy Check In:04:04 PM JANITOR CLEANER Subjective: * Chief Complaints: * 6 Week [...] - Follow Up Plan required. S creening: [place] Suicide Severity Rating Scale (LF) D o [...] recently started a new job at the [employer] and has been dealing with personal issues, [...] ciggerettes. Drug/Alcohol: rarely ETOH Therapy: Counselor at [facility]: 2020. Currently declines. PCP draws routine lab work. PAST PSYCHOTROPIC MEDICATIONS: Lorazepam 0.5 mg day , Vyvanse 50 mg day (ADHD), Abilify as adjunct to wvix-qkclivebeg-mltjhk gain, HISTORICAL BACKGROUND:States she was fired from [...] 100 mg bedtime, PCP: Dr. Jean in [place] VISION IMPAIRED TEACHER is Dr. Annie martinez in [place] Control : IUD Menstrual Periods: irregular This [...] Hospitalization/Major Diagno stic Procedure: M H - [place]. DecemberRU - Depression Summer 2020 * Family [...] to the 24-hour crisis line at [facility]. Questions addressed. Client verbalized understanding of all [...] Procedure Codes: 3 008F BODY MASS INDEX [id number] MEDICAL NUTRITION, INDIV, [id number] TOBACCO NON-USER * Preventive Medicine: Counseling: C are goal follow-up plan: B NC management provided Y es, A nupur Normal BMI Follow-up L ifestyle education regarding diet. * Follow Up: 4 Weeks (Reason: Medication management - can be telehealth appt. or in office appt.) * * TOR CLEANER Sign off status: Completed true * Provider: Mele Brown DNP, PMHNP- Date: 11/18/2023 Generated for No faye/Guzman/Nelidaitting on: 0 11/11/2024 11:21 PM JANITOR CLEANER History and Physical Notes * HPI (History [...] involved in behavioral health treatment . Screening [place] Suicide Sev erity Rating Scale (LF) Do [...]
--- OUTSIDE RECORDS SUMMARY | 2024-11-11 23:22 | XMS_ITS | Encounter Summary ---
Author Organization [facility] Address [address] [place] [address] Care Team Providers Care City Driver Name Role Phone Unavailable Primary Care Provider Unavailabl e Encounter Details Date Type Department Care Team (Late st Contact Info) Description 11/01/2024 Results Follow-Up [facility] [employer] [facility] [address] [place] [address] Benjamin Carbajal MD [address] [place] [address] GC/CHLAMYDIA/TRICHOM ONAS, UROGENITAL Social History Tobacco Use Types Packs/Day Years Used Date Smoking Tobacco: Former Cigarettes 1 15 2 024 - 10/31/2023 Comments:still vape Alcohol Use Standard Drinks/Week Comments Not Currently 0 (1 standard drink = 0.6 oz pur e alcohol) Comments Unknown Sex and Gender Information Value Date Recorded Sex Assigned at Not on file Legal Sex Female 1:27 PM DISTRICT CLAIMS MANAGER Gender Identity Not on file Sexual Orientation Not on file documented as of this encounter Plan of Treatment Upcoming Encounters Date Type Department Care Team (Latest Contact Info) Description 11/19/2024 8:30 AM DISTRICT CLAIMS MANAGER Ancillary Procedure [facility] [employer] [facility] [address] [place] [address] 11/19/2024 9:00 AM DISTRICT CLAIMS MANAGER Office Visit [facility] [employer] [facility] [address] [place] [address] Benjamin Carbajal MD 6[address] [facility] [address] [place] [address] 12/30/2024 9:15 AM CDT Office Visit [facility] [address] [facility] [address] [place] [address] Benjamin Carbajal MD 6[address] [facility] [address] [place] [address] Cherie Conn MD 615 [address] [facility] 1200 [place] [address] 04/13/2025 10:20 AM CDT Appointment [facility] [address] [place] [phone] Benjamin Carbajal MD 621 [facility] [address] [place] [address] documented as of this encounter Visit Diagnoses Not on filedocumented in this encounter Additional Health Concerns Assessment Noted Time PHQ-9 Depression Total Score: 2 10/30/19 25 10:00 AM DISTRICT CLAIMS MANAGER documented as of this encounter
--- OUTSIDE RECORDS SUMMARY | 2024-11-11 23:22 | XMS_ITS | Patient Health Record ---
Author Organization [facility] Address [address] [place] [address] Care Team Providers Care Chemical Laboratory Technician Name Role Phone Jed Roy Primary Care Provider [phone] Michael Brown [phone] Allergies Allergen (clinical drug ingredient) Drug/Non Drug [...] mg to 40 mg. Thanks!! 10/13/2024 Active Greasy Carbonate ER 300 MG 1 tablet at [...] Problem Status W/U Status Risk Notes Problem 19769938 Opioid dependence, uncomplicated (F11.20) Active confirmed Problem Tobacco user (965326384) Nicotine dependence, unspecified, uncomplicated (F17.200) Active confirmed Problem 17276036 Generalized anxiety disorder (F41.1) Active confirmed Problem Attention deficit hyperactivity disorder (699456308) ADHD (attention deficit hyperactivity disorder), combined type (F90.2) Active confirmed Problem 850125227 Bipolar 1 disorder (F31.9) Active confirmed Problem Opioid dependence in remission (684336249) Opioid dependence in remission (F11.21) Active confirmed Problem Nightmares (577141863) Nightmares (F51.5) Active confirmed Problem Nicotine dependence (84980249) Nicotine dependence (F17.200) Active confirmed Problem Binge eating disorder (323539180) Binge eating disorder (F50.81) Active confirmed Vital Signs Heart Rate 88 /min 09/17/2024 Temperature 98.1 degrees Fahrenheit 11/14/2023 Respiratory Rate 16 /min 09/17/2024 Blood pressure diastolic 68 mm Hg 09/17/2024 Oximetry 97 % 09/17/2024 Height 67 in 09/17/2024 Blood pressure systolic 108 mm Hg 09/17/2024 Weight 189.2 lbs 09/17/2024 BMI 29.63 kg/m2 09/17/2024 Encounters Encounter Location Date Provider Diagnosis [address] [address] 11/14/2023 Michael Brown Nicotine dependence, unspecified, uncomplicated F17.200 ; Bipolar 1 disorder F31.9 ; Generalized anxiety disorder F41.1 ; ADHD (attention deficit hyperactivity disorder), combined type F90.2 and Nightmares F51.[address] [address] 02/04/2024 Michael Brown ADHD (attention deficit hyperactivity disorder), combined type F90.2 ; Binge eating disorder F50.81 ; Generalized anxiety disorder F41.1 ; Bipolar 1 disorder F31.9 and Nightmares F51.[address] [address] 05/04/2024 Michael Brown Bipolar 1 disorder F31.9 ; ADHD (attention deficit hyperactivity disorder), combined type F90.2 ; Generalized anxiety disorder F41.1 ; Binge eating disorder F50.81 and Nightmares F51.[address] [address] 07/29/2024 Michael Brown Generalized anxiety disorder F41.1 ; ADHD (attention deficit hyperactivity disorder), combined type F90.2 ; Nightmares F51.5 ; Binge eating disorder, moderate F50.811 and Medication side effects T88.7XXA [address] [address] 08/10/2024 Michael Brown Generalized anxiety disorder F41.1 ; ADHD (attention deficit hyperactivity disorder), combined type F90.2 ; Nightmares F51.5 ; Binge eating disorder, moderate F50.811 and Medication side effects T88.7XXA [address] [address] 09/17/2024 Michael Brown Generalized anxiety disorder F41.1 ; Bipolar 1 disorder F31.9 ; ADHD (attention deficit hyperactivity disorder), combined type F90.2 ; Binge eating disorder, moderate F50.811 ; Nightmares F51.5 and Medication side effects T88.7XXA [address] [address] 10/13/2024 Michael Brown Bipolar 1 disorder F31.9 ; Generalized anxiety disorder F41.1 ; ADHD (attention deficit hyperactivity disorder), combined type F90.2 ; Nightmares F51.5 and Binge eating disorder F50.[address] [address] 12/02/2023 Michael Brown [address] [address] 02/12/2024 Michael Brown [address] [address] 02/18/2024 Michael Brown ADHD (attention deficit hyperactivity disorder), combined type F90.2 Assessments Encounter Date Diagnosis (ICD Code) Assessment Notes Treatment Notes Treatment Clinical Notes Section Notes 02/18/2024 ADHD (attention deficit hyperactivity disorder), combined type (ICD-10 - F90.2) 05/04/2024 ADHD (attention deficit hyperactivity disorder), combined type (ICD-10 - F90.2) Client doing well overall, no changes to treatment plan currently. 05/04/2024 Bipolar 1 disorder (ICD-10 - F31.9) Client doing well overall, no changes to treatment plan currently. 10/13/2024 Bipolar 1 disorder (ICD-10 - F31.9) [...] agreeable to trial of these medications. 09/17/2024 Generalized anxiety disorder (ICD-10 - F41.1) [...] other alternatives. Client has never trialed these. 08/10/2024 Generalized anxiety disorder (ICD-10 - F41.1) [...] (ie Sjogren syndrome). Client verbalizes understanding. 09/17/2024 Bipolar 1 disorder (ICD-10 - F31.9) [...] other alternatives. Client has never trialed these. 07/29/2024 Generalized anxiety disorder (ICD-10 - F41.1) [...] see if helpful for dry mouth also. 02/04/2024 ADHD (attention deficit hyperactivity disorder), combined [...] details about bipolar versus MDD history. 02/04/2024 Binge eating disorder (ICD-10 - F50.81) [...] of prazosin. No other changes needed. 11/14/2023 Bipolar 1 disorder (ICD-10 - F31.9) [...] for details about bipolar versus MDD history. 07/29/2024 Nightmares (ICD-10 - F51.5) Client has [...] (ie Sjogren syndrome). Client verbalizes understanding. 09/17/2024 ADHD (attention deficit hyperactivity disorder), combined [...] other alternatives. Client has never trialed these. 05/04/2024 Generalized anxiety disorder (ICD-10 - F41.1) Client doing well overall, no changes to treatment plan currently. 10/13/2024 Generalized anxiety disorder (ICD-10 - F41.1) [...] overall, no changes to treatment plan currently. 09/17/2024 Binge eating disorder, moderate (ICD-10 - [...] other alternatives. Client has never trialed these. 08/10/2024 Binge eating disorder, moderate (ICD-10 - [...] see if helpful for dry mouth also. 02/04/2024 Bipolar 1 disorder (ICD-10 - F31.9) [...] details about bipolar versus MDD history. 11/14/2023 ADHD (attention deficit hyperactivity disorder), combined type (ICD-10 - F90.2) Client requests to be placed on another ADHD medication due to lack of being able to percure Vyvanse. Changed to methylphenidate. Naltrexone dcd due to client feeling no longer needed (no cravings anymore). Client having nightmares daily. Agreeable to trial of prazosin. No other changes needed. 11/14/2023 Nightmares (ICD-10 - F51.5) Client requests to be placed on another ADHD medication due to lack of being able to percure Vyvanse. Changed to methylphenidate. Naltrexone dcd due to client feeling no longer needed (no cravings anymore). Client having nightmares daily. Agreeable to trial of prazosin. No other changes needed. 02/04/2024 Nightmares (ICD-10 - F51.5) All lab [...] for details about bipolar versus MDD history. 09/17/2024 Nightmares (ICD-10 - F51.5) Client had [...] other alternatives. Client has never trialed these. 07/29/2024 Medication side effects (ICD-10 - T88.7XXA) [...] see if helpful for dry mouth also. 10/13/2024 Nightmares (ICD-10 - F51.5) Client with [...] disorder (ie Sjogren syndrome). Client verbalizes understanding. 05/04/2024 Nightmares (ICD-10 - F51.5) Client doing well overall, no changes to treatment plan currently. 10/13/2024 Binge eating disorder (ICD-10 - F50.81) [...] agreeable to trial of these medications. 09/17/2024 Medication side effects (ICD-10 - T88.7XXA) [...] other alternatives. Client has never trialed these. [place]2023 [place] [...] number to the 24-hour crisis line at [facility]. Questions addressed. Client verbalized understanding [...] number to the 24-hour crisis line at [facility]. Questions addressed. Client verbalized understanding [...] number to the 24-hour crisis line at [facility]. Questions addressed. Client verbalized understanding [...] number to the 24-hour crisis line at [facility]. Questions addressed. Client verbalized understanding [...] number to the 24-hour crisis line at [facility]. Questions addressed. Client verbalized understanding [...] number to the 24-hour crisis line at [facility]. Questions addressed. Client verbalized understanding [...] number to the 24-hour crisis line at [facility]. Questions addressed. Client verbalized understanding [...] Name:Michael Norwood , 11/12/2024 08:40:00 AM, [address], [place], [address], Insurance Providers Payer Name Payer Address Payer Phone Subscriber Number Group Number Insured Name Patient Relationship to Insured Coverage Start Date Coverage End Date [facility] [address] [place] [phone] [id number] Wendy Paz Self - patient is the insured 4 [facility] [employer] [address] [place] [phone] [id number] Wendy Paz Self - patient is the insured [address] [address] [id number] Wendy Paz Self - patient is the insured 1 3 MEDICAID [address] [address] [id number] Wendy Paz Self - patient is the insured [address] [address] [id number] 8 Wendy Paz Self - patient is the insured 4 [address] [employer] [address] [address] [id number] Wendy Paz Self - patient is the insured 5 Medical (General) History Medical History History ICD Code Bipolar 1 disorder F31.9 Generalized anxiety disorder F41.1 Opioid dependence, uncomplicated F11.20 Surgical History Surgery Date(Month/Year) D&C Hospitalization History Reason Date(Month/Year) CRU - Depression Summer 2020 - [place]. December 2021
--- OUTSIDE RECORDS SUMMARY | 2024-11-11 23:22 | XMS_ITS ---
Author Organization [facility] Address [address] [place] [address] Care Team Providers Care Medical Case Manager Name Role Phone Jed Roy Primary Care Provider [phone] Michael Brown Unavailable [phone] Allergies Allergen (clinical drug ingredient) Drug/Non Drug [...] Female Encounters Encounter Location Date Provider Diagnosis [address] [address] 08/10/2024 Michael Brown Generalized anxiety disorder F41.1 [...] number to the 24-hour crisis line at [facility]. Questions addressed. Client verbalized understanding [...] number to the 24-hour crisis line at [facility]. Questions addressed. Client verbalized understanding of all information and is agreeable to treatment plan. Next Appt Details Follow Up: 6 Weeks, Reason: Medication management - can be telehealth appt. Provider Name:Michael Norwood , 11/12/2024 08:40:00 AM, [address] [facility], [place], [address], Progress Notes * JACKSONWendyDOB: 1 (44 yo F)Acc No.[id number]:08/10/2024 Patient: Wendy PEREZ Provider: Mele Brown DNP, PMHNP-BC :1980 A ge:44 Y S ex:Female Date:08/10/2024 Address:[address] [place], [place] [phone] Pcp:Jed Roy Subjective: * Chief Complaints: * [...] I nterpretation M ild Depression. S creening: [place] Suicide Severity Rating Scale (LF) D o [...] recently started a new job at the [employer] and has been dealing with [...] ciggerettes. Drug/Alcohol: rarely ETOH Therapy: Counselor at [facility] Labs: 2020. Currently declines. PAST PSYCHOTROPIC MEDICATIONS: Lorazepam 0.5 mg day , Vyvanse 50 mg day (ADHD), Abilify as adjunct to vflv-zlhjjkzzwi-dkvvvc gain, HISTORICAL BACKGROUND: States she was fired [...] 100 mg bedtime, PCP: Dr. Jean in [place] COMPUTER OPERATOR is Dr. Annie martinez in [place] Control : IUD Menstrual Periods: irregular This [...] Hospitalization/Major Diagno stic Procedure: M H - [place]. DecemberRU - Depression Summer 2020 * Family [...] , Notes to Pharmacist: Still waiting on AR for Vyvanse for binge eating indication.Vyvanse 50 [...] number to the 24-hour crisis line at [facility]. Questions addressed. Client verbalized understanding [...] - can be telehealth appt.) * * T BUILDER Sign off status: Completed true * Provider: Mele Brown DNP, PMP- Date: 1 10/10/2023 Generated for No faye/Guzman/eTransmitting on: 0 11/11/2024 11:22 PM FLOAT BUILDER History and Physical Notes * HPI (History [...] Total Score: 8 Interpretation: Mild Depression Screening [place] Suicide Sev erity Rating Scale (LF) Do [...]
--- NOTE | 2024-11-11 23:25 | ED_ITS ---
HPI - Abdominal Pain General Chief Complaint: Abdominal Pain Stated Complaint: abd pain x2 years Time Seen by Provider: 11/11/24 23:14 History of Present Illness HPI narrative: 44-year-old otherwise healthy female presenting to the emergency department for chronic abdominal pain for last 2 years. Patient describes vague abdominal discomfort for last 2 years that flares up intermittently. Associated constipation, belching. Has had multiple workups including CT scan images and evaluation by her OBGYN and primary doctor. Has not had any relief of her symptoms. For last 4 hours she is having acute on chronic abdominal pain, no change characteristics are associated nausea, vomiting, diarrhea. States she is chronically constipated, last bowel movement was yesterday. Patient states ?I am not drug seeking , but is requesting pain medications to help her through the day and to sleep. Has taken 2 Zofran earlier today without any relief. Has not take any pain medications today. Was otherwise in her normal state of health. No fever chills. Patient states she has a new OBGYN upcoming appointment to establish care and to see if her ovarian cyst is causing her symptoms. Related Data Home Medications ?Medication ?Instructions ?Recorded ?Confirmed ?Last Taken ?Type amoxicillin 875 mg-potassium tablet 11/11/24 Unknown History clavulanate 125 mg tablet atorvastatin 20 mg tablet mg 11/11/24 11/11/24 History bupropion HCl 150 mg 24 hr tablet, mg PO 11/11/24 11/11/24 History extended release diclofenac sodium 50 mg mg PO 11/11/24 Unknown History tablet,delayed release fluticasone propionate 50 intranasal 11/11/24 Unknown History mcg/actuation nasal spray,suspension gabapentin 300 mg capsule mg 11/11/24 Unknown History levothyroxine 50 mcg tablet mcg 11/11/24 Unknown History lithium carbonate 300 mg mg PO 11/11/24 Unknown History tablet,extended release lurasidone 40 mg tablet mg 11/11/24 Unknown History oxybutynin chloride 5 mg tablet mg 11/11/24 Unknown History prazosin 1 mg capsule mg 11/11/24 Unknown History propranolol 60 mg capsule,24 mg PO 11/11/24 Unknown History hr,extended release topiramate 100 mg tablet mg 11/11/24 Unknown History Allergies Allergy/AdvReac Type Severity Reaction Status Date / Time Sulfa (Sulfonamide Allergy Hives Verified 11/11/24 23:27 Antibiotics) Review of Systems 2 Review of Systems: As reviewed above in HPI Exam 2 Narrative: GENERAL: [Well-appearing, well-nourished, and in no acute distress.] HEAD: [Normocephalic, atraumatic.] EYES: [PERRLA and EOMI.] ENT: Nares clear, no rhinorrhea or epistaxis. Mucous membranes moist. NECK: Supple. CHEST: [Clear to auscultation. No respiratory distress.] HEART: [Regular rate and rhythm]. No murmur heard. [Normal peripheral pulses.] ABDOMEN: [Soft, nondistended], [nontender], [No rigidity or guarding] EXTREMITIES: Normal range of motion. [No edema.] SKIN: Warm, dry, no rash. NEURO: [No focal deficits]. Alert and oriented [x3.] PSYCH: [Normal mood and affect.] Course Vital Signs Vital signs: Vital Signs Pulse Rate 89 11/11/24 23:04 Respiratory Rate 14 11/11/24 23:04 Blood Pressure 117/78 11/11/24 23:04 Pulse Oximetry 100 11/11/24 23:04 Pulse Rate 89 11/11/24 23:04 Respiratory Rate 14 11/11/24 23:04 Blood Pressure 117/78 11/11/24 23:04 Pulse Oximetry 100 11/11/24 23:04 MDM - Abdominal Pain MDM Narrative Medical decision making narrative: 44-year-old female presenting for chronic abdominal pain for last 2 years. Patient states for last 4 hours she is having acute on chronic abdominal pain, vague, nonlocalized, associated with non specific symptoms such as nausea and belching. Has had constipation for the last 2 years, last bowel movement yesterday. Thinks it could be her ovarian cyst acting up on her. Took 2 Zofran without any relief. She has normal vital signs normal blood pressure, normal pulse, no fever or tachypnea, hypoxia. Soft nontender nondistended abdomen. Low suspicion for any acute abdominal process or infectious process. Will rule out emergent concerns such as pancreatitis, appendicitis, cholecystitis. CBC, CMP, lipase, urinalysis and CT scan was ordered. She was given Reglan and morphine as well as a fluid bolus and re-evaluated frequently. Placed on monitoring analyst. Workup shows no significant leukocytosis, normal hemoglobin, normal platelets. Electrolytes within normal limits, normal renal function panel, LFTs largely unremarkable. Normal bilirubin. No urinary tract infection. Negative test. CT scan shows no acute intra-abdominal pathology, no visualized bowl ovarian cysts, fecal stasis is seen consistent with her chronic constipation. Patient is safe and stable for discharge with regular outpatient follow-up and return precautions. Medical Records Attestation: I reviewed the patient's medical records. Lab Data Attestation: I reviewed the patient's lab results. 11/11/24 23:21 11/11/24 23:21 Labs: Lab Results 11/11/24 11/11/24 Range/Units 23:21 23:23 WBC 11.3 H (4.5-10.0) K/mm3 RBC 4.84 (4.2-5.4) M/mm3 Hgb 14.9 (12.0-15.0) g/dL Hct 44.3 (37.0-47.0) % MCV 91.5 (80-100) fl MCH 30.8 (26-34) pg MCHC 33.6 (32-36) g/dl RDW 12.4 (11.5-14.5) % Plt Count 306 (150-375) k/mm3 MPV 9.6 (7.4-10.4) fl Immature Gran % (Auto) 0.8 H (0-0.5) % Neut % (Auto) 57.2 (45.5-73.1) % Lymph % (Auto) 32.8 (18.3-44.2) % Trinity % (Auto) 6.4 (2.6-8.5) % Eos % (Auto) 2.2 (0-4.4) % Baso % (Auto) 0.6 (0.2-1.2) % Lymph # (Auto) 3.72 H (0.9-3.2) K/mm3 Trinity # (Auto) 0.7 H (0.1-0.6) K/mm3 Eos # (Auto) 0.3 (0-0.3) K/mm3 Baso # (Auto) 0.1 (0.0-0.1) K/mm3 Abs Immat Gran (auto) 0.09 H (0.00-0.031) K/mm3 Absolute Neuts (auto) 6.5 (1.3-6.7) K/mm3 Absolute Nucleated RBC 0.000 (0.0-0.012) K/mm3 Nucleated RBC % 0.0 (0.0-0.2) % Sodium 141 (137-145) mmol/L Potassium 3.7 (3.4-5.0) mmol/L Chloride 105 (98-107) mmol/L Carbon Dioxide 27 (22-30) mmol/L Anion Gap 9 (4-12) mmol/L BUN 9 (7-17) mg/dL Creatinine 0.95 (0.7-1.0) mg/dL Estim Creat Clear Calc 74 ml/min Estimated GFR > 60 (59 - ) Glucose 80 (65-110) mg/dL Calcium 9.8 (8.4-10.2) mg/dL Total Bilirubin 0.4 (0.2-1.3) mg/dL AST 36 (14-36) U/L ALT 74 H (6-35) U/L Alkaline Phosphatase 67 (38-126) U/L Total Protein 9.0 H (6.3-8.2) g/dL Albumin 5.0 (3.5-5.1) g/dL Lipase 119 (23-300) U/L Urine Color Yellow (Yellow) Urine Appearance Clear (Clear) Urine pH 6.0 (5.0-9.0) Ur Specific [place] 1.003 (1.001-1.035) Urine Protein Negative (Negative) mg/dL Urine Glucose (UA) Negative (Negative) mg/dL Urine Ketones Negative (Negative) mg/dL Ur Blood (Man) Negative (Negative) Urine Nitrate Negative (Negative) Urine Bilirubin Negative (Negative) Urine Urobilinogen 0.2 (<2.0) mg/dL Leukocyte Esterase Rfl Negative (Negative) LEONCIO/UL POC Urine HCG, Qual Negative (Negative) Imaging Data Attestation: I personally reviewed and interpreted this imaging study as follows: My impression: Impressions Abdomen/Pelvis CT 11/12/24 00:12 IMPRESSION: Fecal stasis within the colon. No acute intra-abdominal pathology, as detailed above. Radiologist's impression: ITS Impressions Abdomen/Pelvis CT 11/12/24 00:12 IMPRESSION: Fecal stasis within the colon. No acute intra-abdominal pathology, as detailed above. Discharge Plan Discharge Clinical Impression: Abdominal pain, chronic, generalized, Constipation Patient Disposition: Home, Self-Care Condition: Stable Instructions: Antibiotic Form, Constipation (DC), Abdominal Pain (ED) Additional Instructions: Your CT scan shows no acute findings or any concerns. No ovarian cysts or masses are seen. Your laboratory studies showed reassuring liver and kidney tests. Please keep your follow-up appointment with your OBGYN and regular primary care provider. Continue high-fiber diet and [id number] stool softeners for constipation issues. Return with any new or worsening concerns. Patient Language: Paraguayan Prescriptions: No Action hydrocodone-acetaminophen 5-325 mg tablet 1 tablet PO Q6H PRN (Reason: pain) Qty: 15 0RF lidocaine 5 % adhesive patch,medicated 1 patch topical DAILY Qty: 15 0RF Rx Instructions: leave on most painful area for up to 12 hrs atorvastatin 20 mg tablet diclofenac sodium 50 mg tablet,delayed release (DR/EC) PO amoxicillin-pot clavulanate 875-125 mg tablet bupropion HCl 150 mg tablet extended release 24 hr PO prazosin 1 mg capsule propranolol 60 mg capsule,extended release 24 hr PO lithium carbonate 300 mg tablet extended release PO levothyroxine 50 mcg tablet gabapentin 300 mg capsule oxybutynin chloride 5 mg tablet topiramate 100 mg tablet fluticasone propionate 50 mcg/actuation spray,suspension INTRANASAL lurasidone 40 mg tablet Follow-up/Referrals: Ted,Sedrick Payton MD [Primary Care Provider] - Time of Disposition: 00:28
[2024-11-11 23:26] LABS: BEDSIDEPREGUCG Negative (Negative)
[2024-11-11 23:29] LABS: Basophils Absolute Auto 0.1 K/mm3 (0.0-0.1); Basophils Percent Auto 0.6 % (0.2-1.2); Eosinophils Absolute Auto 0.3 K/mm3 (0-0.3); Eosinophils Percent Auto 2.2 % (0-4.4); Hematocrit 44.3 % (37.0-47.0); Hemoglobin 14.9 g/dL (12.0-15.0); Immature Granulocyte Absolute 0.09 K/mm3 (0.00-0.031); Immature Granulocyte Percent A 0.8 % (0-0.5); Lymphocytes Absolute Auto 3.72 K/mm3 (0.9-3.2); Lymphocytes Percent Auto 32.8 % (18.3-44.2); Mean Corpuscular HGB Conc 33.6 g/dl (32-36); Mean Corpuscular Hemoglobin 30.8 pg (26-34); Mean Corpuscular Volume 91.5 fl (80-100); Mean Platelet Volume 9.6 fl (7.4-10.4); Monocytes Absolute Auto 0.7 K/mm3 (0.1-0.6); Monocytes Percent Auto 6.4 % (2.6-8.5); Neutrophils Absolute Auto 6.5 K/mm3 (1.3-6.7); Neutrophils Percent Auto 57.2 % (45.5-73.1); Platelet Count Result 306 k/mm3 (150-375); Red Blood Count 4.84 M/mm3 (4.2-5.4); Red Cell Distribution Width 12.4 % (11.5-14.5); White Blood Count 11.3 K/mm3 (4.5-10.0)
[2024-11-11 23:31] LABS: Add Urine Microscopic? NO; Appearance Urine Clear (Clear); Bilirubin Urine Negative (Negative); Blood Urine Negative (Negative); Color Urine Yellow (Yellow); Glucose Urine UA Negative (Negative); Ketones Urine Negative (Negative); Leukocyte Esterase Ur Negative LEU/UL (Negative); Nitrate Urine Negative (Negative); Protein Urine Negative (Negative); Specific Grav Ur 1.003 (1.001-1.035); Urobilinogen Urine 0.2 mg/dL (<2.0)
[2024-11-11] MEDS: LACTATED RINGERS 1,000 ML 999 ML IV CONT (23:35)
[2024-11-11] MEDS: METOCLOPRAMIDE HCL INJ 10 MG/2 ML VIAL IV PUSH (23:36)
[2024-11-11] MEDS: MORPHINE SULFATE (*CRX) 4 MG/ML INJ IV PUSH (23:37)
[2024-11-11 23:39] LABS: Alanine Aminotransferase 74 U/L (6-35); Alkaline Phosphatase 67 U/L (38-126); Anion Gap 9 mmol/L (4-12); Aspartate Amino Transferase 36 U/L (14-36); Bilirubin,Total 0.4 mg/dL (0.2-1.3); Blood Urea Nitrogen 9 mg/dL (7-17); Calcium 9.8 mg/dL (8.4-10.2); Carbon Dioxide 27 mmol/L (22-30); Chloride 105 mmol/L (98-107); Estimated CRCL calculation 74 ml/min; Estimated Glomerular Filt Rate > 60; Glucose 80 mg/dL (65-110); Lipase 119 U/L (23-300); Potassium 3.7 mmol/L (3.4-5.0); Sodium 141 mmol/L (137-145)
== END 2024-11-12 00:45 | disposition home or self-care (01) ==
PROVIDERS: Emergency Provider Student in an Organized Health Care Education/Training Program; PCP Emergency Medicine
DX: R10.84 Generalized abdominal pain (principal); G89.29 Other chronic pain; K59.00 Constipation, unspecified
CPT/HCPCS: 36415; 74177; 80053; 81003; 81025; 83690; 85025; 96361; 96374; 96375; 99284; J2270; J2765; J7120; Q9967

== ENCOUNTER 2025-07-27 12:46 | Outpatient (CLI) | payer OTHER, SELFPAY ==
--- OUTSIDE RECORDS SUMMARY | 2025-07-27 14:25 | XMS_ITS | Clinical Summary ---
Author Organization [facility] Address [address] [place] [address] Care Team Providers Care Geographic Information Scientist Name Role Phone None, Physician Primary Care Provider Unavailabl e Source Comments [facility],non-owned Affiliates and Associated Physician Practices is amultiple site organization consisting of ambulatory clinics and hospital sitesin [place], [place], [place] and [place]. This disclosure is being madepursuant to the Care Everywhere program and may not contain all information available regarding this patient. Last updated 18.[facility] Allergies Active Allergy Reactions Criticality Noted Date Comments Sulfa Drugs Urticaria,Itching,Rash High 04/30/2022 Medications * Be aware that medications may not be up to date on this document. Alwaysverify current medications with the patient. atorvastatin (Lipitor) 20 MG tablet Take 1 (one) tablet by mouth once daily Active buPROPion XL 24hr (Wellbutrin-XL) 150 MG tablet Take 1 (one) tablet by mouth every morning 4 Active amoxicillin-cla vulanate (Augmentin) 875-125 MG tablet 5 Active diclofenac sodium EC (Voltaren) 50 MG tablet Take 1 (one) tablet by mouth 5 Active fluticasone propionate (Flonase) 50 MCG/ACT nasal spray 4 Active gabapentin (Neurontin) 400 MG capsule Take 1 (one) capsule by mouth 3 times daily 5 Active levothyroxine (Synthroid) 50 MCG tablet Take 1 (one) tablet by mouth once daily 4 Active lithium CR (Lithobid) 300 MG tablet Take 1 (one) tablet by mouth 2 times daily 5 Active lurasidone (Latuda) 40 MG tablet 1 (one) tablet 5 Active nystatin (Mycostatin) 065061 UNIT/ML suspension 4 Active oxyBUTYnin (Ditropan) 5 MG tablet Take 1 (one) tablet by mouth 3 times daily Active pilocarpine HCl (Salagen) 5 MG tablet Take 1 (one) tablet by mouth 4 Active prazosin (Minipress) 1 MG capsule TAKE 1 CAPSULE BY MOUTH DAILY AT BEDTIME NEEDED FOR NIGHTMARES 4 Active propranolol ER 24hr (Inderal LA) 60 MG capsule Take 1 (one) capsule by mouth once daily Active topiramate (Topamax) 100 MG tablet Take 1 (one) tablet by mouth at bedtime 4 Active venlafaxine XR 24hr (Effexor XR) 150 MG capsule 1 (one) capsule 4 Active Social History Tobacco Use Types Packs/Day Years Used Date Smoking Tobacco: Never Smokeless Tobacco: Never Tobacco Cessation:Counseling Given: No Alcohol Use Standard Drinks/Week Comments Not Currently 0 (1 standard drink = 0.6 oz pur e alcohol) Comments Unknown Sex and Gender Information Value Date Recorded Sex Assigned at Not on file Legal Sex Female 10:41 AM STORAGE MANAGER Gender Identity Not on file Sexual Orientation Not on file Last Filed Vital Signs Vital Sign Reading Time Taken Comments Blood Pressure 118/79 11/10/2024 3:29 PM STORAGE MANAGER Pulse 84 11/10/2024 3:29 PM STORAGE MANAGER Temperature 36.9 C (98.5 F) 11/10/2024 3:29 PM STORAGE MANAGER Respiratory Rate 18 11/10/2024 3:29 PM STORAGE MANAGER Oxygen Saturation 100% 11/10/2024 3:29 PM STORAGE MANAGER Inhaled Oxygen Concentration - - Weight 81.6 kg (180 lb) 11/10/2024 3:29 PM STORAGE MANAGER Height 170.2 cm (5' 7) 11/10/2024 3:29 PM STORAGE MANAGER Body Mass Index 28.19 11/10/2024 3:29 PM STORAGE MANAGER Plan of Treatment Health Maintenance Due Date Last Done Comments MAMMOGRAM 1981 HIV SCREENING 1996 HEPATITIS C SCREENING 05/04/1999 DTAP/TDAP/TD VACCINES (1 - Tdap) 2000 HEPATITIS B VACCINE (1 of 3 - 19+ 3-dose series) 2000 PAP SMEAR 2002 HPV VACCINE (1 - 3-dose SCDM series) 2008 DEPRESSION SCREENING 09/30/2024 SCREENING FOR DIABETES 11/10/2024 COVID-19 VACCINE (1 - 2023-2 5 season) 2025 INFLUENZA VACCINE (#1) 2025 ZOSTER VACCINE (1 of 2) 2031 HIB VACCINE Aged Out No longer eligi ble based on patient's age to complete this topic MENINGOCOCCAL (Group B) VACC INE SHARED DECISION-MAKING Aged Out No longer eligibl e based on patient's age to complete this topic MENINGOCOCCAL GROUPS A/C/Y/W VACCINE Aged Out No longer eligible b ased on patient's age to complete this topic PNEUMOCOCCAL VACCINE Aged Out No long er eligible based on patient's age to complete this topic Insurance [employer] Care Teams Geographic Information Scientist Relationship Specialty Start Date End Date None, Physician PCP - General 11/06/24
--- OUTSIDE RECORDS SUMMARY | 2025-07-27 14:25 | XMS_ITS | Clinical Summary ---
Author Organization [facility] Address [address] [place] [address] Phone Care Team Providers Care Core Analysis Operator Name Role Phone Unavailable Primary Care Provider [...] Take 5 mg by mouth. 07/29/2024 Active prochlorperazine maleate (COMPAZINE) 10 mg tablet Take 1 Tablet (10 mg) by mouth every 6 hours as needed for Nausea/Emes is. 30 Tablet 1 11/19/2024 Active pantoprazole (PROTONIX) 40 mg Tablet, Delayed Release (E.C.) TAKE 1 TABLET(40 MG) BY MOUTH DAILY 30 Tablet 2 06/08/2025 Active Active Problems Problem Noted Date Diagnosed Date Overactive bladder 10/30/2024 IUD (intrauterine device) in place 10/30/2024 Constipation 10/30/2024 Encounters Date Type Department Care Team Description 07/20/2025 External Device Data ST[facility] ABSTRACTION Provider, Abstract 06/06/2025 Refill [facility] FILER FINISH - [facility] [address] [facility] [address] [address] [address] [place] [address] Benjamin Carbajal MD 05/04/2025 External Device Data ST[facility] ABSTRACTION Provider, Abstract from Last 3 Months Family History Medical History Relation Name Comments Cancer Father carrie paz Diabetes Father carrie paz type two Colon Cancer Maternal Grandfather keesha omalley Heart Disease Maternal Grandfather keesha omalley Hypertension Maternal Grandfather keesha omalley Hypertension Maternal Grandmother geri lyssa Mental illness Maternal Grandmother geri omalley Mental [...] = 0.6 oz pur e alcohol) Comments No Sex and Gender Information Value Date Recorded Sex Assigned at Not on file Legal Sex Female 1:27 PM BENEFITS COORDINATOR Gender Identity Not on file Sexual Orientation Not on file Last Filed Vital Signs Vital Sign Reading Time Taken Comments Blood Pressure 100/66 11/19/2024 9:10 AM BENEFITS COORDINATOR Pulse 79 11/19/2024 9:10 AM BENEFITS COORDINATOR Temperature - - Respiratory Rate - - Oxygen Saturation 99% 11/19/2024 9:10 AM BENEFITS COORDINATOR Inhaled Oxygen Concentration - - Weight 81.3 kg (179 lb 3.2 oz) 11/19/2024 9:10 A M BENEFITS COORDINATOR Height 170.2 cm (5' 7) 11/19/2024 9:10 AM BENEFITS COORDINATOR Body Mass Index 28.07 11/19/2024 9:10 AM BENEFITS COORDINATOR Plan of Treatment Health Maintenance Due Date Last Done Comments Pre-Diabetes and Diabetes Screening 1981 DTAP/TDAP/TD VACCINES (1 - Tdap) 2000 HEPATITIS B VACCINES (1 of 3 - 19+ 3-dose series) 2000 HPV/Cotest (21-29) 2002 HPV VACCINES (1 - 3-dose SCD M series) 2008 HPV/Cotest (30-65) 2011 BREAST CANCER SCREENING 04/09/2025 04/09/20 24, 04/09/2024, 10/29/2022, Additional history exists INFLUENZA VACCINE (#1) 2025 CERVICAL CANCER SCREENING 11/26/2026 PAP SMEAR 11/26/2026 11/26/2023 Insurance [facility] RISK MANAGEMENT
--- OUTSIDE RECORDS SUMMARY | 2025-07-27 14:25 | XMS_ITS | Patient Health Record ---
Author Organization [facility] Address [address] [place] [address] Care Team Providers Care Supervisor Intermediates Name Role Phone Jed Roy Primary Care Provider [phone] Michael Brown [phone] Allergies Allergen (clinical drug ingredient) Drug/Non Drug [...] Duration) Notes Start Date End Date Status buPROPion HCl ER (XL) 150 MG TAKE 1 TABLET BY MOUTH EVERY MORNING; Duration: 30 days Active Venlafaxine HCl ER 150 MG TAKE 1 CAPSULE BY MOUTH WITH FOOD DAILY; Duration: 30 days Active oxyBUTYnin Chloride 5 MG 1 tablet Orally Twice a day Unknown Pilocarpine HCl 5 MG 1 tablet Orally Three times a day; Duration: 30 days Lurasidone restarting 07/29/2024 Unknown [place] Carbonate ER 300 MG 1 tablet at bedtime Orally Once a day; Duration: 30 days 10/13/2024 Active Gabapentin 400 MG 1 capsule as needed for anxiety Orally Three times a day; Duration: 30 days Please remind client make f/u appt. Active Atorvastatin Calcium 10 MG 1 tablet Orally Once a day; Duration: 30 day(s) 06/07/2021 Unknown Lurasidone HCl 40 MG 1 tablet in the evening with food Orally Once a day; Duration: 30 days 10/13/2024 Active Zovirax 5 % 1 application every 3 hours Externally Six times a day; Duration: 7 days 05/19/2021 Unknown Thyroid 15 MG 1 tablet on an empty stomach Orally Once a day; Duration: 30 day(s) Unknown Prazosin HCl 1 MG 1 capsule at bedtime Orally Once a day; Duration: 30 days As needed for nightmares 11/14/2023 Active traZODone HCl 50 MG 1 tablet at bedtime as needed for insomnia Orally Once a day; Duration: 30 days 11/12/2024 Active Social History Tobacco Use: Social History [...] Problem Status W/U Status Risk Notes Problem Opioid dependence (00740151) Opioid dependence, uncomplicated (F11.20) Active confirmed Problem Tobacco user (071947051) Nicotine dependence, unspecified, uncomplicated (F17.200) Active confirmed Problem Generalized anxiety disorder (58021459) Generalized anxiety disorder (F41.1) Active confirmed Problem Attention deficit hyperactivity disorder (838237867) ADHD (attention deficit hyperactivity disorder), combined type (F90.2) Active confirmed Problem Bipolar 1 disorder (984999710) Bipolar 1 disorder (F31.9) Active confirmed Problem Opioid dependence in remission (160227629) Opioid dependence in remission (F11.21) Active confirmed Problem Nightmares (780581386) Nightmares (F51.5) Active confirmed Problem Nicotine dependence (18954665) Nicotine dependence (F17.200) Active confirmed Problem Binge eating disorder (582709971) Binge eating disorder (F50.81) Active confirmed Vital Signs Heart Rate 88 /min 09/17/2024 Respiratory Rate 16 /min 09/17/2024 Blood pressure diastolic 68 mm Hg 09/17/2024 Oximetry 97 % 09/17/2024 Height 67 in 09/17/2024 Blood pressure systolic 108 mm Hg 09/17/2024 Weight 189.2 lbs 09/17/2024 BMI 29.63 kg/m2 09/17/2024 Encounters Encounter Location Date Provider Diagnosis [address] [address] 07/29/2024 Michael Brown Generalized anxiety disorder F41.1 ; ADHD (attention deficit hyperactivity disorder), combined type F90.2 ; Nightmares F51.5 ; Binge eating disorder, moderate F50.811 and Medication side effects T88.7XXA [address] [address] 08/10/2024 Michael Brown Generalized anxiety disorder F41.1 ; ADHD (attention deficit hyperactivity disorder), combined type F90.2 ; Nightmares F51.5 ; Binge eating disorder, moderate F50.811 and Medication side effects T88.7XXA [address] [address] 09/17/2024 Michael Brown Generalized anxiety disorder F41.1 ; Bipolar 1 disorder F31.9 ; ADHD (attention deficit hyperactivity disorder), combined type F90.2 ; Binge eating disorder, moderate F50.811 ; Nightmares F51.5 and Medication side effects T88.7XXA [address] [address] 10/13/2024 Michael Brown Bipolar 1 disorder F31.9 ; Generalized anxiety disorder F41.1 ; ADHD (attention deficit hyperactivity disorder), combined type F90.2 ; Nightmares F51.5 and Binge eating disorder F50.[address] [address] 11/12/2024 Michael Brown Bipolar 1 disorder F31.9 ; Generalized anxiety disorder F41.1 ; ADHD (attention deficit hyperactivity disorder), combined type F90.2 and Nightmares F51.[address] [address] 12/17/2024Merlin Brown Assessments Encounter Date Diagnosis (ICD Code) Assessment [...] (ie Sjogren syndrome). Client verbalizes understanding. 10/13/2024 Bipolar 1 disorder (ICD-10 - F31.9) [...] is agreeable to trial of these medications. 11/12/2024 Bipolar 1 disorder (ICD-10 - F31.9) Client doing better overall. Mood stabilized though some depressive symptoms and disrupted sleeping. However, client grieving recent loss of grandmother and dog. She has started therapy. Discussed adding trazodone to improve sleep quality and reassessing in one month. Client agreeable. No other changes to treatment plan. 09/17/2024 Generalized anxiety disorder (ICD-10 - F41.1) [...] that she is MDD with ADHD and TNAO. Client had substance use disorder when dx [...] if helpful for dry mouth also. 09/17/2024 Bipolar 1 disorder (ICD-10 - F31.9) [...] alternatives. Client has never trialed these. 07/29/2024 Nightmares (ICD-10 - F51.5) Client has [...] if helpful for dry mouth also. 09/17/2024 ADHD (attention deficit hyperactivity disorder), combined [...] other alternatives. Client has never trialed these. 11/12/2024 Generalized anxiety disorder (ICD-10 - F41.1) Client doing better overall. Mood stabilized though some depressive symptoms and disrupted sleeping. However, client grieving recent loss of grandmother and dog. She has started therapy. Discussed adding trazodone to improve sleep quality and reassessing in one month. Client agreeable. No other changes to treatment plan. 10/13/2024 Generalized anxiety disorder (ICD-10 - F41.1) [...] agreeable to trial of these medications. 08/10/2024 Nightmares (ICD-10 - F51.5) Concerning that [...] (ie Sjogren syndrome). Client verbalizes understanding. 10/13/2024 ADHD (attention deficit hyperactivity disorder), combined [...] is agreeable to trial of these medications. 11/12/2024 ADHD (attention deficit hyperactivity disorder), combined type (ICD-10 - F90.2) Client doing better overall. Mood stabilized though some depressive symptoms and disrupted sleeping. However, client grieving recent loss of grandmother and dog. She has started therapy. Discussed adding trazodone to improve sleep quality and reassessing in one month. Client agreeable. No other changes to treatment plan. 08/10/2024 Binge eating disorder, moderate (ICD-10 - [...] (ie Sjogren syndrome). Client verbalizes understanding. 09/17/2024 Binge eating disorder, moderate (ICD-10 - [...] alternatives. Client has never trialed these. 07/29/2024 Binge eating disorder, moderate (ICD-10 - [...] see if helpful for dry mouth also. 11/12/2024 Nightmares (ICD-10 - F51.5) Client doing better overall. Mood stabilized though some depressive symptoms and disrupted sleeping. However, client grieving recent loss of grandmother and dog. She has started therapy. Discussed adding trazodone to improve sleep quality and reassessing in one month. Client agreeable. No other changes to treatment plan. 10/13/2024 Nightmares (ICD-10 - F51.5) Client with [...] (ie Sjogren syndrome). Client verbalizes understanding. 10/13/2024 Binge eating disorder (ICD-10 - F50.81) [...] alternatives. Client has never trialed these. [place]24 [place] [...] number to the 24-hour crisis line at [facility]. Questions addressed. Client verbalized understanding of all [...] number to the 24-hour crisis line at [facility]. Questions addressed. Client verbalized understanding of all [...] number to the 24-hour crisis line at [facility]. Questions addressed. Client verbalized understanding of all [...] number to the 24-hour crisis line at [facility]. Questions addressed. Client verbalized understanding of all [...] is agreeable to trial of these medications. 11/12/2024 Other Discussed sleep hygiene and caffeine intake with [...] number to the 24-hour crisis line at [facility]. Questions addressed. Client verbalized understanding of all information and is agreeable to treatment plan. Client doing better overall. Mood stabilized though some depressive symptoms and disrupted sleeping. However, client grieving recent loss of grandmother and dog. She has started therapy. Discussed adding trazodone to improve sleep quality and reassessing in one month. Client agreeable. No other changes to treatment plan. Plan Of Treatment No Information Insurance Providers Payer Name Payer Address Payer Phone Subscriber Number Group Number Insured Name Patient Relationship to Insured Coverage Start Date Coverage End Date [employer] [address] [place] [address] [id number] Wendy Paz Self - patient is the insured 4 [facility] Plan [address] [place] [address] [id number] Wendy Paz Self - patient is the insured 1 3 [facility] [employer] [address] [place] [phone] [id number] Wendy Paz Self - patient is the insured 1 3 MEDICAID [address] [place] [address] [id number] Wendy Paz Self - patient is the insured 4 4 [facility] Plan [address] [place] [address] [id number] Wendy Paz Self - patient is the insured 4 4 [employer] [address] [place] [address] [id number] Wendy Paz Self - patient is the insured 5 Medical (General) History Medical History History ICD Code Bipolar 1 disorder F31.9 Generalized anxiety disorder F41.1 Opioid dependence, uncomplicated F11.20 Surgical History Surgery Date(Month/Year) D&C Hospitalization History Reason Date(Month/Year) CRU - Depression Summer 2020 - [place]. December 2021
[2025-07-28 15:09] LABS: Deamidated Gliadin Abs, IgA 3 units (0-19); Deamidated Gliadin Abs, IgG 2 units (0-19); Immunoglobulin A, Qn 180 mg/dL (87-352)
== END 2025-07-27 12:47 | disposition home or self-care (01) ==
LOC: ANHLAB 12:47
PROVIDERS: Visit Provider Nurse Practitioner
DX: R14.0 Abdominal distension (gaseous) (principal); R11.0 Nausea; K21.9 Gastro-esophageal reflux disease without esophagitis
CPT/HCPCS: 82784; 86231; 86258

== ENCOUNTER 2025-08-02 07:00 | Outpatient (NON) | payer OTHER, SELFPAY ==
--- NOTE | 2025-08-02 | S_PTH ---
PATIENT: Wendy Paz LOC: [facility] U#:[id number] AGE/SX: 45/F ROOM: RE08/02/[address]: Bruce Hancock MD : 1980 BED: DIS: 08/02/2025 SPEC #: [id number] RECD: 08/03/25 11:47 STATUS: GERRY REQ #: [id number] HEVER: 08/02/25 00:[address]: Bruce Hancock DEPT: [facility] Surgical RECD BY: Cesar Miranda ENTERED: 08/03/25 11:48 SP TYPE: Surgical OTHR DR: Sedrick JeanMD Tissues: A - Gastric Biopsy B - Gastric Biopsy Procedures: Hematoxylin and Eosin Stain Gross and Microscopic Level 4
--- OUTSIDE RECORDS SUMMARY | 2025-08-03 11:41 | XMS_ITS | Clinical Summary ---
Author Organization [facility] Address [address] [place] [address] Care Team Providers Care Rn Hemodialysis Name Role Phone None, Physician Primary Care Provider Unavailabl e Source Comments [facility],non-owned Affiliates and Associated Physician Practices is amultiple site organization consisting of ambulatory clinics and hospital sitesin [place], [place] and [place]. This disclosure is being madepursuant to the Care Everywhere program and may not contain all information available regarding this patient. Last updated 18.[facility] Allergies Active Allergy Reactions Criticality Noted Date [...] 1 (one) tablet 5 Active nystatin (Mycostatin) 002475 UNIT/ML suspension 4 Active oxyBUTYnin (Ditropan) 5 [...] on file Legal Sex Female 10:41 AM APARTMENT GROUNDSKEEPER Gender Identity Not on file Sexual Orientation Not on file Last Filed Vital Signs Vital Sign Reading Time Taken Comments Blood Pressure 118/79 11/10/2024 3:29 PM APARTMENT GROUNDSKEEPER Pulse 84 11/10/2024 3:29 PM APARTMENT GROUNDSKEEPER Temperature 36.9 C (98.5 F) 11/10/2024 3:29 PM APARTMENT GROUNDSKEEPER Respiratory Rate 18 11/10/2024 3:29 PM APARTMENT GROUNDSKEEPER Oxygen Saturation 100% 11/10/2024 3:29 PM APARTMENT GROUNDSKEEPER Inhaled Oxygen Concentration - - Weight 81.6 kg (180 lb) 11/10/2024 3:29 PM APARTMENT GROUNDSKEEPER Height 170.2 cm (5' 7) 11/10/2024 3:29 PM APARTMENT GROUNDSKEEPER Body Mass Index 28.19 11/10/2024 3:29 PM APARTMENT GROUNDSKEEPER Plan of Treatment Health Maintenance Due Date [...] this topic Insurance [employer] Care Teams Rn Hemodialysis Relationship Specialty Start Date End Date None, Physician PCP - General 11/06/24
--- OUTSIDE RECORDS SUMMARY | 2025-08-03 11:41 | XMS_ITS | Clinical Summary ---
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 Gender Identity Not on file Sexual Orientation Not on file Last Filed Vital Signs Vital Sign Reading Time Taken Comments Blood Pressure 100/66 11/19/2024 9:10 AM 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
--- OUTSIDE RECORDS SUMMARY | 2025-08-03 11:42 | XMS_ITS | Patient Health Record ---
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 Name Role Phone Jed Roy Primary Care Provider Michael Brown [phone] Allergies Allergen (clinical drug ingredient) Drug/Non Drug [...] Duration: 30 days Lurasidone restarting 07/29/2024 Unknown [place] Carbonate ER 300 MG 1 tablet at [...] W/U Status Risk Notes Problem Opioid dependence (37695836) Opioid dependence, uncomplicated (F11.20) Active confirmed Problem Tobacco user (157430277) Nicotine dependence, unspecified, uncomplicated (F17.200) Active confirmed Problem Generalized anxiety disorder (58565718) Generalized anxiety disorder (F41.1) Active confirmed Problem Attention deficit hyperactivity disorder (622701425) ADHD (attention deficit hyperactivity disorder), combined type (F90.2) Active confirmed Problem Bipolar 1 disorder (669456934) Bipolar 1 disorder (F31.9) Active confirmed Problem Opioid dependence in remission (357966344) Opioid dependence in remission (F11.21) Active confirmed Problem Nightmares (310450447) Nightmares (F51.5) Active confirmed Problem Nicotine dependence (64098946) Nicotine dependence (F17.200) Active confirmed Problem Binge eating disorder (797364223) Binge eating disorder (F50.81) Active confirmed Vital Signs Heart Rate 88 /min 09/17/2024 Respiratory Rate 16 /min 09/17/2024 Blood pressure diastolic 68 mm Hg 09/17/2024 Oximetry 97 % 09/17/2024 Height 67 in 09/17/2024 Blood pressure systolic 108 mm Hg 09/17/2024 Weight 189.2 lbs 09/17/2024 BMI 29.63 kg/m2 09/17/2024 Encounters Encounter Location Date Provider Diagnosis [address] [address] 08/10/2024 Michael Brown Generalized anxiety disorder F41.1 ; ADHD (attention deficit hyperactivity disorder), combined type F90.2 ; Nightmares F51.5 ; Binge eating disorder, moderate F50.811 and Medication side effects T88.7XXA [address] [address] 09/17/2024 Michael Brown Generalized anxiety disorder F41.1 ; Bipolar 1 disorder F31.9 ; ADHD (attention deficit hyperactivity disorder), combined type F90.2 ; Binge eating disorder, moderate F50.811 ; Nightmares F51.5 and Medication side effects T88.7XXA [address] [address] 10/13/2024 Michael Brown Bipolar 1 disorder F31.9 ; Generalized anxiety disorder F41.1 ; ADHD (attention deficit hyperactivity disorder), combined type F90.2 ; Nightmares F51.5 and Binge eating disorder F50.[address] [address] 11/12/2024 Michael Brown Bipolar 1 disorder F31.9 ; Generalized anxiety disorder F41.1 ; ADHD (attention deficit hyperactivity disorder), combined type F90.2 and Nightmares F51.[address] [address] 12/17/2024 Michael Brown Assessments Encounter Date Diagnosis (ICD Code) [...] agreeable to trial of these medications. 08[place]10/[place]24 [place] [...] Insured Coverage Start Date Coverage End Date [employer] [address] [place] [phone] [id number] Wendy Paz Self - patient is the insured 4 [facility] Plan [address] [place] [phone] [id number] Wendy Paz Self - patient is the insured 1 3 [facility] [address] [place] [phone] [id number] Wendy Paz Self - patient is the insured 1 3 MEDICAID [address] [place] [address] [id number] Wendy Paz Self - patient is the insured 4 4 [employer] [facility] [place] Plan [address] [place] [address] [id number] Wendy Paz Self - patient is the insured 4 4 [employer] [address] [place] [phone] [id number] Wendy Paz Self - patient is the insured 5 Medical (General) History Medical History History ICD Code Bipolar 1 disorder F31.9 Generalized anxiety disorder F41.1 Opioid dependence, uncomplicated F11.20 Surgical History Surgery Date(Month/Year) D&C Hospitalization History Reason Date(Month/Year) CRU - Depression Summer 2020 - [place]. December 2021
== END 2025-08-02 07:01 | disposition home or self-care (01) ==
PROVIDERS: PCP Emergency Medicine; Visit Provider Internal Medicine Gastroenterology
DX: R13.10 Dysphagia, unspecified (principal); K21.9 Gastro-esophageal reflux disease without esophagitis
CPT/HCPCS: 88305

== ENCOUNTER 2025-08-02 09:15 | Day surgery (SDC) | payer OTHER, SELFPAY ==
[2025-07-27 09:35] VITALS: BMI 28.1
[2025-08-02 09:35] VITALS: BP 111/63; PULSE 62; RESP 15; TEMP 36.6; O2SAT 100
[2025-08-02] MEDS: LACTATED RINGERS 1,000 ML 150 ML IV CONT (09:40)
[2025-08-02] MEDS: SIMETHICONE ORAL SUSPENSION 20 MG/0.3 ML 30 ML BOTTLE 1.8 ML PO (09:40)
--- OUTSIDE RECORDS SUMMARY | 2025-08-02 09:49 | XMS_ITS | Patient Health Record ---
Author Organization [facility] Address [address] [place] [address] Care Team Providers Care Technical Laboratory Asst Name Role Phone Jed Roy Primary Care Provider Michael Brown [phone] Allergies Allergen (clinical drug ingredient) Drug/Non Drug [...] Duration: 30 days Lurasidone restarting 07/29/2024 Unknown [place] Carbonate ER 300 MG 1 tablet at [...] W/U Status Risk Notes Problem Opioid dependence (26624244) Opioid dependence, uncomplicated (F11.20) Active confirmed Problem Tobacco user (966605466) Nicotine dependence, unspecified, uncomplicated (F17.200) Active confirmed Problem Generalized anxiety disorder (01479889) Generalized anxiety disorder (F41.1) Active confirmed Problem Attention deficit hyperactivity disorder (687863592) ADHD (attention deficit hyperactivity disorder), combined type (F90.2) Active confirmed Problem Bipolar 1 disorder (545396072) Bipolar 1 disorder (F31.9) Active confirmed Problem Opioid dependence in remission (099349321) Opioid dependence in remission (F11.21) Active confirmed Problem Nightmares (803678708) Nightmares (F51.5) Active confirmed Problem Nicotine dependence (74373670) Nicotine dependence (F17.200) Active confirmed Problem Binge eating disorder (899794471) Binge eating disorder (F50.81) Active confirmed Vital Signs Heart Rate 88 /min 09/17/2024 Respiratory Rate 16 /min 09/17/2024 Oximetry 97 % 09/17/2024 Blood pressure diastolic 68 mm Hg 09/17/2024 Height 67 in 09/17/2024 Blood pressure systolic 108 mm Hg 09/17/2024 Weight 189.2 lbs 09/17/2024 BMI 29.63 kg/m2 09/17/2024 Encounters Encounter Location Date Provider Diagnosis [address] [address] 12/17/2024 Michael Brown [address] [address] 09/17/2024 Michael Brown Generalized anxiety disorder F41.1 ; Bipolar 1 disorder F31.9 ; ADHD (attention deficit hyperactivity disorder), combined type F90.2 ; Binge eating disorder, moderate F50.811 ; Nightmares F51.5 and Medication side effects T88.7XXA [address] [address] 10/13/2024 Michael Brown Bipolar 1 disorder F31.9 ; Generalized anxiety disorder F41.1 ; ADHD (attention deficit hyperactivity disorder), combined type F90.2 ; Nightmares F51.5 and Binge eating disorder F50.[address] [address] 11/12/2024 Michael Brown Bipolar 1 disorder F31.9 ; Generalized anxiety disorder F41.1 ; ADHD (attention deficit hyperactivity disorder), combined type F90.2 and Nightmares F51.[address] [address] 08/10/2024 Michael Brown Generalized anxiety disorder F41.1 [...] (ie Sjogren syndrome). Client verbalizes understanding. 09/17/2024 Generalized anxiety disorder (ICD-10 - F41.1) [...] agreeable. No other changes to treatment plan. 11/12/2024 Generalized anxiety disorder (ICD-10 - F41.1) [...] alternatives. Client has never trialed these. 08/10/2024 Nightmares (ICD-10 - F51.5) Concerning that [...] No other changes to treatment plan. 09/17/2024 Binge eating disorder, moderate (ICD-10 - [...] alternatives. Client has never trialed these. 11/12/2024 Nightmares (ICD-10 - F51.5) Client doing [...] agreeable to trial of these medications. 09/17/2024 Nightmares (ICD-10 - F51.5) Client had [...] alternatives. Client has never trialed these. 08/10/2024 Medication side effects (ICD-10 - T88.7XXA) [...] (ie Sjogren syndrome). Client verbalizes understanding. 09/17/2024 Medication side effects (ICD-10 - T88.7XXA) [...] agreeable to trial of these medications. 09/17/2024 [place] [...] number to the 24-hour crisis line at [facility]. Questions addressed. Client verbalized understanding of all [...] alternatives. Client has never trialed these. 08/10/2024 [place] [...] number to the 24-hour crisis line at [facility]. Questions addressed. Client verbalized understanding of all [...] (ie Sjogren syndrome). Client verbalizes understanding. 10/13/2024 [place] [...] number to the 24-hour crisis line at [facility]. Questions addressed. Client verbalized understanding of all [...] number to the 24-hour crisis line at [facility]. Questions addressed. Client verbalized understanding of all [...] Insured Coverage Start Date Coverage End Date [employer] [address] [place] [phone] [id number] Wendy Paz Self - patient is the insured 4 [facility] Plan [id number] [place] [phone] [id number] Wendy Paz Self - patient is the insured 1 3 [facility] [employer] [address] [place] [phone] [id number] Wendy Paz Self - patient is the insured 1 3 MEDICAID [address] [place] [address] [id number] Wendy Paz Self - patient is the insured 4 4 [facility] Plan [address] [place] [address] [id number] Wendy Paz Self - patient is the insured 4 4 [employer] [address] [place] [phone] [id number] Wendy Paz Self - patient is the insured 5 Medical (General) History Medical History History ICD Code Bipolar 1 disorder F31.9 Generalized anxiety disorder F41.1 Opioid dependence, uncomplicated F11.20 Surgical History Surgery Date(Month/Year) D&C Hospitalization History Reason Date(Month/Year) CRU - Depression Summer 2020 - [place]. December 2021
--- OUTSIDE RECORDS SUMMARY | 2025-08-02 09:49 | XMS_ITS | Clinical Summary ---
Author Organization [facility] Address [address] [place] [address] Phone Care Team Providers Care Marine Service Operator Name Role Phone Unavailable Primary Care [...] Data STL ABSTRACTION Provider, Abstract 06/06/2025 Refill [facility] PROCESSING SUPERVISOR - Medical [facility] [address] [facility] [address] [place] [address] Benjamin Carbajal MD 05/04/2025 External [...] on file Legal Sex Female 1:27 PM CHIEF RISK OFFICER Gender Identity Not on file Sexual Orientation Not on file Last Filed Vital Signs Vital Sign Reading Time Taken Comments Blood Pressure 100/66 11/19/2024 9:10 AM CHIEF RISK OFFICER Pulse 79 11/19/2024 9:10 AM CHIEF RISK OFFICER Temperature - - Respiratory Rate - - Oxygen Saturation 99% 11/19/2024 9:10 AM CHIEF RISK OFFICER Inhaled Oxygen Concentration - - Weight 81.3 kg (179 lb 3.2 oz) 11/19/2024 9:10 A M CHIEF RISK OFFICER Height 170.2 cm (5' 7) 11/19/2024 9:10 AM CHIEF RISK OFFICER Body Mass Index 28.07 11/19/2024 9:10 AM CHIEF RISK OFFICER Plan of Treatment Health Maintenance Due Date [...] SCREENING 11/26/2026 PAP SMEAR 11/26/2026 11/26/2023 Insurance [facility] [place] [address]
--- NOTE | 2025-08-02 09:58 | WPDANESEPPF ---
Anes - Initial Pre Proc Eval Procedure: Operation Date: 08/02/25 09:30 Proposed Procedures p EGD & Diagnostic Colonoscopy - Bruce Hancock MD Date/Time: 08/02/25 09:58 Surgeon: Bruce Hancock MD Pre Op Diagnosis: Other constipation Patient Data Age: 45 Gender: F Height: 1.7 m Weight: 80.2 kg Last Vital Signs Temp 97.8 F 08/02/25 09:35 Pulse 62 08/02/25 09:35 Resp 15 08/02/25 09:35 BP 111/63 08/02/25 09:35 Pulse Ox 100 08/02/25 09:35 O2 Del Method Room Air 08/02/25 09:35 Allergies Allergy/AdvReac Type Severity Reaction Status Date / Time Sulfa (Sulfonamide Allergy Hives Verified 08/02/25 09:32 Antibiotics) Home Medications ?Medication ?Instructions ?Recorded ?Confirmed ?Type atorvastatin 20 mg tablet 20 mg PO DAILY 11/11/24 08/02/25 History diclofenac sodium 50 mg 50 mg PO BID 11/11/24 08/02/25 History tablet,delayed release fluticasone propionate 50 1 spray intranasal Q12H PRN 11/11/24 08/02/25 History mcg/actuation nasal allergy symptoms spray,suspension propranolol 60 mg capsule,24 60 mg PO DAILY 11/11/24 08/02/25 History hr,extended release lamotrigine 200 mg tablet 200 mg PO DAILY 07/22/25 08/02/25 History (Lamictal) levothyroxine 50 mcg tablet 50 mcg PO DAILY 07/22/25 08/02/25 History (Synthroid) loratadine 5 mg-pseudoephedrine ER 1 tablet PO Q12H 07/22/25 08/02/25 History 120 mg tablet,extended release,12hr (Claritin-D 12 Hour) ondansetron 4 mg disintegrating 4 - 8 mg (1 - 2 x 4 mg) PO Q8H PRN 07/22/25 08/02/25 Rx tablet nausea and vomiting #30 tabs pantoprazole 40 mg tablet,delayed 40 mg PO QAM 07/22/25 08/02/25 History release trazodone 50 mg tablet 50 mg PO QHS PRN insomnia 07/22/25 08/02/25 History Patient hx anesthesia problems: none Family hx anesthesia problems: none Results Review: All pre-operative results and documents have been reviewed as part of the pre-operative evaluation. [facility] Social History Social History Smoking status: Unknown if ever smoked Anes - Eval Final PreProcedure Day of Procedure 08/02/25 09:58 Heart: regular rate and rhythm Lungs: clear to auscultation Airway: Mallampati scale class II Neurological: alert and oriented Last oral intake: >/= 8 hours ASA classification: II Anesthetic plan: proceed Anesthesia type and monitoring: monitored anesthesia care Results Review: All pre-operative results and documents have been reviewed as part of the pre-operative evaluation. Informed Consent: The patient's anesthetic plan and its attendant risks and benefits were discussed with the patient/family/POA. Questions were solicited and answers provided to the satisfaction of the patient/family/POA.
--- NOTE | 2025-08-02 10:16 | PM.IMHP ---
H&P: HPI History of Present Illness Date/Time: 08/02/25 10:16 Chief Complaint: GERD-rectal bleeding Narrative: the patient is referred today for EGD and colonoscopy. She has a longstanding history of heartburn, 4 times per week, improved partially with pantoprazole which she takes daily. There is occasional dysphagia, approximately once per month. She also has occasional minor rectal bleeding. Review of Systems Review of Systems: All systems reviewed & are unremarkable except as noted in HPI and below PMFSH Social History Social History Smoking status: Unknown if ever smoked Meds Home Medications and Allergies Home Medications ?Medication ?Instructions ?Recorded ?Confirmed ?Type atorvastatin 20 mg tablet 20 mg PO DAILY 11/11/24 08/02/25 History diclofenac sodium 50 mg 50 mg PO BID 11/11/24 08/02/25 History tablet,delayed release fluticasone propionate 50 1 spray intranasal Q12H PRN 11/11/24 08/02/25 History mcg/actuation nasal allergy symptoms spray,suspension propranolol 60 mg capsule,24 60 mg PO DAILY 11/11/24 08/02/25 History hr,extended release lamotrigine 200 mg tablet 200 mg PO DAILY 07/22/25 08/02/25 History (Lamictal) levothyroxine 50 mcg tablet 50 mcg PO DAILY 07/22/25 08/02/25 History (Synthroid) loratadine 5 mg-pseudoephedrine ER 1 tablet PO Q12H 07/22/25 08/02/25 History 120 mg tablet,extended release,12hr (Claritin-D 12 Hour) ondansetron 4 mg disintegrating 4 - 8 mg (1 - 2 x 4 mg) PO Q8H PRN 07/22/25 08/02/25 Rx tablet nausea and vomiting #30 tabs pantoprazole 40 mg tablet,delayed 40 mg PO QAM 07/22/25 08/02/25 History release trazodone 50 mg tablet 50 mg PO QHS PRN insomnia 07/22/25 08/02/25 History Allergies Allergy/AdvReac Type Severity Reaction Status Date / Time Sulfa (Sulfonamide Allergy Hives Verified 08/02/25 09:32 Antibiotics) Vital Signs Vital Signs - 24 hr 08/02/25 09:35 Temperature 97.8 F Pulse Rate 62 Respiratory Rate 15 Blood Pressure 111/63 Pulse Oximetry 100 Oxygen Delivery Room Air Exam Const: General: cooperative and healthy appearing Resp: Effort & Inspection: normal respiratory effort and able to speak in complete sentences Auscultation: clear to auscultation bilaterally Cardio: Rate: regular rate Rhythm: regular rhythm GI: Inspection: normal to inspection GI Palp: No No hepatosplenomegaly present Auscultation: normal bowel sounds Rectal Exam: deferred Skin: General skin exam: normal color Psych: Appearance: grossly normal Mental Status: mental status grossly normal Assessment and Plan Assessment and plan (1) GERD (gastroesophageal reflux disease): Code(s): K21.9 - Gastro-esophageal reflux disease without esophagitis Status: Acute Assessment and Plan: The patient is deemed a good candidate for the procedures. Consent signed. Will proceed. (2) BRBPR (bright red blood per rectum): Code(s): K62.5 - Hemorrhage of anus and rectum Status: Acute
--- NOTE | 2025-08-02 10:39 | SUR.OPER ---
EGD stopped @1033 Colonoscopy started @1041
--- NOTE | 2025-08-02 10:49 | WPDANESPN ---
Anes - Prog Note Post-Op Date/Time: 08/02/25 10:49 Vital Signs: Last Vital Signs Temp 97.8 F 08/02/25 09:35 Pulse 62 08/02/25 09:35 Resp 15 08/02/25 09:35 BP 111/63 08/02/25 09:35 Pulse Ox 100 08/02/25 09:35 O2 Del Method Room Air 08/02/25 09:35 Pain Score (VAS): no Patient Feedback: Patient satisfied with anesthetic care.
[2025-08-02 10:55] VITALS: BP 101/70; PULSE 59; RESP 14; O2SAT 100
[2025-08-02 11:05] VITALS: BP 116/79; PULSE 61; RESP 16; O2SAT 100
[2025-08-02 11:15] VITALS: BP 105/88; PULSE 60; RESP 16; O2SAT 100
== END 2025-08-02 12:14 | disposition home or self-care (01) ==
PROVIDERS: PCP Emergency Medicine; Referring Provider Nurse Practitioner; Visit Provider Internal Medicine Gastroenterology
PROC: 0DJ08ZZ Inspection of Upper Intestinal Tract, Via Natural or Artificial Opening Endoscopic (ICD-10-PCS; CPT 45378; principal; 2025-08-02 09:30)
DX: K62.5 Hemorrhage of anus and rectum (principal); K21.9 Gastro-esophageal reflux disease without esophagitis; K29.70 Gastritis, unspecified, without bleeding; K31.89 Other diseases of stomach and duodenum
CPT/HCPCS: 45378; 43239